=== PATIENT | female | born 1945 | race Caucasian/White ===

== ENCOUNTER 2017-08-20 20:45 | Observation (INO) | payer MEDICARE, BC ==
--- NOTE | 2017-08-20 21:05 | ERPHSYRPT ---
- History of Present Illness Time Seen by Provider: 08/20/17 20:58 Source: patient, EMS Exam Limitations: no limitations Patient Subjective Stated Complaint: tonight began having diarrhea and vomiting around 1830 Triage Nursing Assessment: abd pain, pt states "intestines binding up" began quick onset tonight with diarrhea episodes every 15min Physician History: The patient is a 72-year-old female brought in by ambulance from assisted living halfway where she had a sudden onset of nausea vomiting and diarrhea about 2-1/2 hours ago. During the diarrhea was watery. No vomiting and diarrhea was occurring every 15 minutes. She feels weak and tired right now. She does not have abdominal pain. She was given Zofran 4 mg any ambulance before arrival. 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 Her past medical history is also significant for high blood pressure, high cholesterol, depression, and coronary artery disease. Timing/Duration: hour(s) (2 1/2), sudden Severity: severe Modifying Factors: Improves With: nothing Associated Symptoms: nausea, vomiting, other (diarrhea) Allergies/Adverse Reactions: codeine Adverse Reaction (Verified 08/18/16 23:41) metoclopramide HCl [From Reglan] Adverse Reaction (Verified 08/18/16 23:41) morphine Adverse Reaction (Verified 08/18/16 23:41) SEDATED Sulfa (Sulfonamide Antibiotics) Adverse Reaction (Verified 08/18/16 23:41) Home Medications: Amlodipine Besylate 5 mg [Norvasc 5 mg] 5 mg PO DAILY 08/18/16 [History] Aspirin [Aspirin EC] 81 mg PO BID 08/18/16 [History] Atenolol 50 mg [Tenormin 50 mg] 50 mg PO DAILY 08/18/16 [History] Atorvastatin Calcium 40 mg PO HS 08/18/16 [History] Cholestyramine Light 4 gm [QUESTRAN Light 4 GM Packet] 4 gm PO DAILY 08/18 [History] Clonazepam [Klonopin] 1 mg PO BID 08/18/16 [History] Clotrimazole [Lotrimin AF] 24 gm TP TID 08/18/16 [History] Diclofenac Sodium 50 mg [Voltaren 50 mg] 50 mg PO BID 08/18/16 [History] Duloxetine HCl [Cymbalta] 60 mg PO DAILY 08/18/16 [History] Gabapentin [Neurontin] 300 mg PO BID 08/18/16 [History] Hydrocodone Bit/Acetaminophen [[place] 10-325 Tablet] 1 each PO DAILY 08/18/16 [ History] Isosorbide Mononitrate 30 mg [Imdur 30 MG] 30 mg PO DAILY 08/18/16 [History ] L.acd/B.bif/L.lala/L.rh/Fos/Man [Preorbotic Capsule] 1 each PO DAILY 08/18/16 [ History] Leflunomide 20 mg PO DAILY 08/18/16 [History] Loperamide HCl [Imodium A-D] 2 mg PO BID 08/18/16 [History] Nitroglycerin [Nitrostat] 0.4 mg SL Q5MIN PRN MR X 3 PRN 08/18/16 [History] Nystatin 5 ml PO QID 08/18/16 [History] Hx Tetanus, Diphtheria Vaccination/Date Given: Yes (UNKNOWN) Hx Influenza Vaccination/Date Given: Yes Hx Pneumococcal Vaccination/Date Given: Yes (2007) Immunizations Up to Date: Yes - Review of Systems Constitutional: Weakness, No Fever, No Chills Eyes: No Symptoms Ears, Nose, & Throat: No Symptoms Respiratory: No Cough, No Dyspnea Cardiac: No Chest Pain, No Edema, No Syncope Abdominal/Gastrointestinal: Nausea, Vomiting, Diarrhea Genitourinary Symptoms: No Dysuria Musculoskeletal: No Back Pain, No Neck Pain Skin: No Rash Neurological: No Dizziness, No Focal Weakness, No Sensory Changes Psychological: No Symptoms Endocrine: No Symptoms Hematologic/Lymphatic: No Symptoms Immunological/Allergic: No Symptoms All Other Systems: Reviewed and Negative - Past Medical History Pertinent Past Medical History: Yes Neurological History: Peripheral Neuropathy ENT History: Cataracts Cardiac History: Deep Vein Thrombosis, Hypertension Respiratory History: No Pertinent History Endocrine Medical History: Diabetes Type II Musculoskeletal History: Arthritis, Fractures, Osteoporosis GI Medical History: GERD, Other History: Other Psycho-Social History: Anxiety, Depression Female Reproductive Disorders: Fibroids, Other Other Medical History: BECHETS. Hx IVC filter for DVT. CeLIAC DISEASE. L KNEE SURGERY. Pessiary - Past Surgical History Past Surgical History: Yes Neuro Surgical History: No Pertinent History Cardiac: No Pertinent History Respiratory: No Pertinent History Gastrointestinal: Appendectomy, Cholecystectomy, Colon Resection, Hernia Repair Genitourinary: No Pertinent History Musculoskeletal: No Pertinent History Female Surgical History: Hysterectomy Other Surgical History: GASTRIC BYPASS - Social History Smoking Status: Never smoker Exposure to second hand smoke: No Drug Use: none Patient Lives Alone: No - Female History Hx Now: No - Nursing Vital Signs Nursing Vital Signs: Initial Vital Signs Temperature 97.3 F 08/20/17 20:49 Pulse Rate 88 08/20/17 20:49 Respiratory Rate 18 08/20/17 20:49 Blood Pressure 140/90 08/20/17 20:49 O2 Sat by Pulse Oximetry 90 L 08/20/17 20:49 Pain Scale Pain Intensity 4 - Physical Exam General Appearance: mild distress Eye Exam: PERRL/EOMI, eyes nml inspection Ears, Nose, Throat Exam: dry mucous membranes Neck Exam: normal inspection, non-tender, supple, full range of motion Respiratory Exam: normal breath sounds, lungs clear, No respiratory distress Cardiovascular Exam: regular rate/rhythm, normal heart sounds, normal peripheral pulses Gastrointestinal/Abdomen Exam: soft, normal bowel sounds, No tenderness, No mass Pelvic Exam: not done Rectal Exam: not done Back Exam: normal inspection, normal range of motion, No CVA tenderness, No vertebral tenderness Extremity Exam: normal inspection, normal range of motion, pelvis stable Neurologic Exam: alert, oriented x 3, cooperative, normal mood/affect, nml cerebellar function, nml station & gait, sensation nml, No motor deficits Skin Exam: warm, pale Lymphatic Exam: No adenopathy SpO2 Interpretation: normal SpO2: 90 Oxygen Delivery: Room Air - Radiology Exams Abdomen X-ray Interpretation: Interpreted by me, Negative (neg chest and nonobstructive bowel gas pattern.) Ordered Tests: Active Orders 24 hr Category Date Time Status Cath for Specimen-Straight STAT Care 08/20/17 22:23 Active IV Insertion STAT Care 08/20/17 21:07 Active OBSTR/ACUTE ABDOMEN SERIES Stat Exams 08/20/17 21:08 Taken BLOOD CULTURE Stat Lab 08/20/17 21:20 Ordered CBC W DIFF Stat Lab 08/20/17 21:21 Completed CMP Stat Lab 08/20/17 21:21 Completed CULTURE,URINE Stat Lab 08/20/17 22:40 Received Lactic Acid Stat Lab 08/20/17 21:20 Results UA W/RFX UR CULTURE Stat Lab 08/20/17 22:23 Ordered Transfer Order Routine Transfer 08/20/17 Ordered Medication Summary Generic Name Dose Route Start Last Admin Trade Name Frelaura PRN Reason Stop Dose Admin Ceftriaxone Sodium/Dextrose 1 g in 50 mls @ 100 mls/hr 08/20/17 22:37 22:44 Rocephin 1 Gm-D5w 50 Ml Bag IV 08/20/17 23:06 100 mls/hr STAT STA Administration Sodium Chloride 1,000 mls @ 999 mls/hr 08/20/17 22:39 08/20/17 22:43 Sodium Chloride 0.9% 1000 Ml IV 08/20/17 23:39 999 mls/hr .Q1H1M STA Administration Discontinued Medications Generic Name Dose Route Start Last Admin Trade Name Gloria PRN Reason Stop Dose Admin Diphenoxylate HCl/Atropine 1 tablet 08/20/17 21:07 08/20/17 21:20 Lomotil PO 08/20/17 21:08 1 tablet STAT ONE Administration Diphenoxylate HCl/Atropine Confirm 08/20/17 21:14 Lomotil Administered 08/20/17 21:15 Dose 1 tablet .ROUTE .STK-MED ONE Sodium Chloride 1,000 mls @ 999 mls/hr 08/20/17 21:07 08/20/17 21:18 Sodium Chloride 0.9% 1000 Ml IV 08/20/17 22:07 999 mls/hr .Q1H1M STA Administration Sodium Chloride Confirm 08/20/17 21:15 Sodium Chloride 0.9% 1000 Ml Administered 08/20/17 21:16 Dose 1,000 mls @ ud .ROUTE .STK-MED ONE Sodium Chloride Confirm 08/20/17 22:40 Sodium Chloride 0.9% 1000 Ml Administered 08/20/17 22:41 Dose 1,000 mls @ ud .ROUTE .STK-MED ONE Ceftriaxone Sodium/Dextrose Confirm 08/20/17 22:40 Rocephin 1 Gm-D5w 50 Ml Bag Administered 08/20/17 22:41 Dose 1 g in 50 mls @ ud IV .STK-MED ONE Promethazine HCl 12.5 mg 08/20/17 21:07 08/20/17 21:21 Phenergan 25 Mg Inj IV 08/20/17 21:08 12.5 mg STAT ONE Administration Promethazine HCl Confirm 08/20/17 21:14 Phenergan 25 Mg Inj Administered 08/20/17 21:15 Dose 25 mg .ROUTE .K-MED ONE Lab/Rad Data: Laboratory Result Diagrams 08/20/17 21:21 08/20/17 21:21 Laboratory Results 08/20/17 08/20/17 08/20/17 Range/Units 21:21 21:21 21:20 WBC 16.6 H (4.0-10.5) K/mm3 RBC 5.41 H (4.1-5.4) M/mm3 Hgb 14.0 (12.0-16.0) gm/dl Hct 45.7 (35-47) % MCV 84.5 (78-100) fl MCH 25.8 L (26-32) pg MCHC 30.6 L (32-36) g/dl RDW 17.8 H (11.5-14.0) % Plt Count 272 (150-450) K/mm3 MPV 9.4 (6-9.5) fl Gran % 80.3 H (36.0-66.0) % Lymphocytes % 10.8 L (24.0-44.0) % Monocytes % 6.9 (0.0-12.0) % Eosinophils % 1.9 (0.00-5.0) % Basophils % 0.1 (0.0-0.4) % Basophils # 0.02 (0-0.4) Sodium 136 (136-145) mEq/L Potassium 3.8 (3.5-5.1) mEq/L Chloride 98 (98-107) mEq/L Carbon Dioxide 20.1 L (21-32) mEq/L Anion Gap 21.3 H (5-15) MEQ/L BUN 29 H (9-20) mg/dL Creatinine 1.36 H (0.55-1.30) mg/dl Estimated GFR 41 ML/MIN Glucose 190 H (70-110) MG/DL Lactic Acid 4.1 H (0.4-2.0) Calcium 9.5 (8.5-10.1) mg/dL Total Bilirubin 0.30 (0.2-1.0) mg/dL AST 18 (15-37) U/L ALT 21 (12-78) U/L Alkaline Phosphatase 102 (46-116) U/L Serum Total Protein 9.4 H (6.4-8.2) gm/dL Albumin 4.8 (3.4-5.0) g/dL - Progress Progress: improved Discussed with : Manuel Will see patient in: hospital (observation) Counseled pt/family regarding: lab results, diagnosis, rad results - Departure Time of Disposition: 22:51 Departure Disposition: Observation (per Dr Mary Ellen Soria) Clinical Impression: Gastroenteritis, Dehydration Condition: Stable Critical Care Time: No Referrals: PEPE LEONARD [Primary Care Provider] -
[2017-08-20] MEDS ORDERED: Sodium Chloride 0.9% 1000 ML 1,000 ML IV STA ×2 (21:07→22:39)
[2017-08-20] MEDS ORDERED: Lomotil PO ONE (21:07)
[2017-08-20] MEDS ORDERED: Phenergan 25 MG INJ IV ONE (21:07)
[2017-08-20] MEDS ORDERED: Lomotil ONE (21:14)
[2017-08-20] MEDS ORDERED: Phenergan 25 MG INJ ONE (21:14)
[2017-08-20] MEDS ORDERED: Sodium Chloride 0.9% 1000 ML 1,000 ML ONE ×2 (21:15→22:40)
[2017-08-20 21:23] LABS: BASOPHIL % 0.1 % (0.0-0.4); Eosinophil % 1.9 % (0.00-5.0); Granulocytes % 80.3 % (36.0-66.0); Lymphocytes % 10.8 % (24.0-44.0); Mean Cell Volume 84.5 fl (78-100); Mean Platelet Volume 9.4 fl (6-9.5); Monocytes % 6.9 % (0.0-12.0); Platelet Count 272 K/mm3 (150-450); Red Blood Count 5.41 M/mm3 (4.1-5.4); Red Cell Distribution Width 17.8 % (11.5-14.0); White Blood Count 16.6 K/mm3 (4.0-10.5)
[2017-08-20 21:32] LABS: Lactic Acid 4.1 (0.4-2.0)
[2017-08-20 21:35] LABS: Mean Corpuscular Hemoglobin 25.8 pg (26-32)
[2017-08-20 21:57] LABS: ALBUMIN 4.8 g/dL (3.4-5.0); ANION GAP 21.3 MEQ/L (5-15); BILIRUBIN,TOTAL 0.3 mg/dL (0.2-1.0); Carbon Dioxide 20.1 mEq/L (21-32); Potassium 3.8 mEq/L (3.5-5.1); Total Protein 9.4 gm/dL (6.4-8.2)
[2017-08-20] MEDS ORDERED: ROCEPHIN 1 Gm-D5w 50 ml Bag** 1 G/50 ML IVPB IV STA (22:37)
[2017-08-20] MEDS ORDERED: ROCEPHIN 1 Gm-D5w 50 ml Bag** 1 G/50 ML IVPB IV ONE (22:40)
[2017-08-20 23:26] LABS: Lactic Acid 3.5 (0.4-2.0)
[2017-08-20] MEDS ORDERED: Zofran 4 MG/2 ML VIAL IV PRN (23:29)
[2017-08-20] MEDS ORDERED: TYLENOL 325 MG PO PRN (23:29)
[2017-08-20] MEDS ORDERED: Sodium Chloride 0.9% 1000 ML 1,000 ML IV SCH (23:29)
[2017-08-21 05:35] LABS: Bacteria MODERATE /HPF (NEGATIVE); Bilirubin NEGATIVE (NEGATIVE); Blood 250 Ery/ul (0-5); COMPLETE URINE MICROSCOPIC? YES; Collection Type VOID; Epithelial Cells MODERATE /HPF (FEW); Glucose NEGATIVE (NEGATIVE); Leukocyte Esterase 2+ (NEGATIVE); WBC 25-50 /HPF (0-5)
[2017-08-21 05:35] LABS: Lactic Acid 1.9 (0.4-2.0)
[2017-08-21 05:38] LABS: BASOPHIL % 0.1 % (0.0-0.4); Granulocytes % 68.3 % (36.0-66.0); Lymphocytes % 22.8 % (24.0-44.0); Mean Cell Volume 84.8 fl (78-100); Mean Platelet Volume 9.1 fl (6-9.5); Monocytes % 6.8 % (0.0-12.0); Platelet Count 207 K/mm3 (150-450); Red Blood Count 4.07 M/mm3 (4.1-5.4); Red Cell Distribution Width 16.9 % (11.5-14.0)
[2017-08-21 05:39] LABS: Mean Corpuscular Hemoglobin 25.7 pg (26-32)
[2017-08-21 06:01] LABS: ANION GAP 14.8 MEQ/L (5-15); BLOOD UREA NITROGEN 21 mg/dL (9-20); CHLORIDE 106 mEq/L (98-107); Carbon Dioxide 22.2 mEq/L (21-32); Glucose 103 MG/DL (70-110); Potassium 3.9 mEq/L (3.5-5.1); SODIUM 139 mEq/L (136-145)
--- NOTE | 2017-08-21 08:21 | PCM.HP ---
History of Present Illness - Chief Complaint Chief Complaint: Nausea/vomiting/diarrhea; dehydration Date: 08/21/17 History of Present Illness: is a 72 year old female. she had sudden onset severe nausea vomiting diarrhea and weakness no bloody emesis or diarrhea some cramping in the abdomen relieved with the diarrhea. She does not recall anything that would have caused this had grilled chicken from [employer] at lunch and had home cooked meal that daughter ate the same thing at dinner. She has frequent UTI's but not the typical prodrome symptoms this time. She has not traveled. SHe felt much better after hydration and zofran. She tolerated clear liquid diet no vomiting or diarrhea since arrival to the floor. - Review of Systems Constitutional: Fatigue, No Fever, No Chills Eyes: No Symptoms Ears, Nose, & Throat: No Symptoms Respiratory: No Cough, No Short Of Breath Cardiac: No Chest Pain, No Edema, No Syncope Abdominal/Gastrointestinal: Nausea, Vomiting, Diarrhea, No Abdominal Pain, No Hematemesis, No Hematochezia, No Melena Genitourinary Symptoms: Frequency, No Dysuria Musculoskeletal: No Back Pain, No Neck Pain Skin: No Rash Neurological: No Dizziness, No Focal Weakness, No Sensory Changes Psychological: No Symptoms Endocrine: No Symptoms Hematologic/Lymphatic: No Symptoms Immunological/Allergic: No Symptoms Medications & Allergies Home Medications: Home Medication List Amlodipine Besylate 5 mg [Norvasc 5 mg] 5 mg PO DAILY 08/18/16 [History Confirmed 08/21/17] Aspirin [Aspirin EC] 81 mg PO DAILY 08/18/16 [History Confirmed 08/21/17] Atenolol 50 mg [Tenormin 50 mg] 50 mg PO DAILY 08/18/16 [History Confirmed 08/21/17] Atorvastatin Calcium 40 mg PO HS 08/18/16 [History Confirmed 08/21/17] Clonazepam [Klonopin] 0.5 mg PO BID 08/18/16 [History Confirmed 08/21/17] Duloxetine HCl [Cymbalta] 90 mg PO DAILY 08/18/16 [History Confirmed 08/21/17] Gabapentin [Neurontin] 600 mg PO BID 08/18/16 [History Confirmed 08/21/17] Hydrocodone Bit/Acetaminophen [[place] 10-325 Tablet] 1 each PO DAILY 08/18/16 [ History Confirmed 08/21/17] Acetaminophen 325 mg [Tylenol 325 mg] 650 mg PO Q6H PRN PRN 08/21/17 [ History Confirmed 08/21/17] Cephalexin Mh 500 mg [Keflex 500 mg] 500 mg PO BID #12 capsule 08/21/17 [Rx] Lisinopril 5 mg [Zestril 5 MG] 5 mg PO DAILY 08/21/17 [History Confirmed 08/21/17] Loperamide HCl [Loperamide] 2 mg PO Q12H PRN PRN 08/21/17 [History Confirmed 08/26] Metformin HCl 500 mg [Glucophage 500 MG] 500 mg PO BID 08/21/17 [History Confirmed 08/21/17] Omeprazole Magnesium [Prilosec Otc] 20 mg PO DAILY 08/21/17 [History Confirmed 08/21/17] Prednisolone Acetate OPHTH [Pred-Forte 1% Ophthalmic] 1 each HS 08/21/17 [ History Confirmed 08/21/17] Allergies/Adverse Reactions: Allergies Allergy/AdvReac Type Severity Reaction Status Date / Time codeine AdvReac Verified 08/18/16 23:41 metoclopramide HCl AdvReac Verified 08/18/16 23:41 [From Reglan] morphine AdvReac Verified 08/18/16 23:41 Sulfa (Sulfonamide AdvReac Verified 08/18/16 23:41 Antibiotics) - Past Medical History Past Medical History: Yes Neurological History: Peripheral Neuropathy, TIA ENT History: Cataracts Cardiac History: Deep Vein Thrombosis, Hypertension Respiratory History: No Pertinent History Endocrine Medical History: Diabetes Type II Musculoskelatal History: Arthritis, Fractures, Osteoporosis GI Medical History: GERD, Other History: Other Pyscho-Social History: Anxiety, Depression Reproductive Disorders: Other Comment: BECHETS. Hx IVC filter for DVT. L KNEE SURGERY. Pessiary. kidney stones, frequent UTI,. hx colon resection - Female History Are you now?: No - Past Surgical History Past Surgical History: Yes Neuro Surgical History: No Pertinent History Cardiac History: No Pertinent History Respiratory Surgery: No Pertinent History GI Surgical History: Appendectomy, Cholecystectomy, Colon Resection, Hernia Repair Genitourinary Surgical Hx: No Pertinent History Musculskeletal Surgical Hx: No Pertinent History Female Surgical History: Hysterectomy Other Surgical History: GASTRIC BYPASS - Social History Smoking Status: Never smoker Exposure to second hand smoke: Yes Alcohol: None Drug Use: none - Physical Exam Vital Signs: Vital Signs - 24 hr Temp Pulse Resp BP Pulse Ox 08/21/17 06:47 98.2 F 95 H 16 140/79 93 L 08/21/17 04:00 98.4 F 96 H 18 123/65 92 L 08/21/17 00:01 98.6 F 103 H 20 155/88 91 L 08/20/17 23:00 67 20 88 L 08/20/17 22:59 98 H 20 167/82 94 L 08/20/17 22:51 90 L 08/20/17 22:14 100 H 20 159/94 95 08/20/17 20:49 97.3 F 88 18 140/90 90 L Oxygen-Last 24 hours O2 Percentage 2 Liters = 28% O2 Percentage 2 Liters = 28% O2 Percentage 2 Liters = 28% General Appearance: no apparent distress, alert Neurologic Exam: alert, oriented x 3, cooperative, normal mood/affect, nml cerebellar function, nml station & gait, sensation nml, No motor deficits Eye Exam: PERRL/EOMI, eyes nml inspection, other (left subcunjunctival hemorrhage) Ears, Nose, Throat Exam: normal ENT inspection, pharynx normal, moist mucous membranes Neck Exam: normal inspection, non-tender, supple, full range of motion Respiratory Exam: normal breath sounds, lungs clear, No respiratory distress Cardiovascular Exam: regular rate/rhythm, normal heart sounds, normal peripheral pulses Gastrointestinal/Abdomen Exam: soft, normal bowel sounds, No tenderness, No mass Back Exam: normal inspection, normal range of motion, No CVA tenderness, No vertebral tenderness Extremity Exam: normal inspection, normal range of motion, pelvis stable Skin Exam: normal color, warm, dry, No rash Lymphatic Exam: No adenopathy Results - Labs Lab/Micro Results: Lab Results-Last 24 Hours 08/21/17 08/21/17 08/21/17 Range/Units 05:20 05:20 05:20 WBC 8.0 (4.0-10.5) K/mm3 RBC 4.07 L (4.1-5.4) M/mm3 Hgb 10.5 L (12.0-16.0) gm/dl Hct 34.5 L (35-47) % MCV 84.8 (78-100) fl MCH 25.7 L (26-32) pg MCHC 30.4 L (32-36) g/dl RDW 16.9 H (11.5-14.0) % Plt Count 207 (150-450) K/mm3 MPV 9.1 (6-9.5) fl Gran % 68.3 H (36.0-66.0) % Lymphocytes % 22.8 L (24.0-44.0) % Monocytes % 6.8 (0.0-12.0) % Eosinophils % 2.0 (0.00-5.0) % Basophils % 0.1 (0.0-0.4) % Basophils # 0.01 (0-0.4) Sodium 139 (136-145) mEq/L Potassium 3.9 (3.5-5.1) mEq/L Chloride 106 (98-107) mEq/L Carbon Dioxide 22.2 (21-32) mEq/L Anion Gap 14.8 (5-15) MEQ/L BUN 21 H (9-20) mg/dL Creatinine 0.87 (0.55-1.30) mg/dl Estimated GFR > 60 ML/MIN Glucose 103 (70-110) MG/DL Lactic Acid 1.9 (0.4-2.0) Calcium 8.1 L (8.5-10.1) mg/dL - Other Procedures and Tests Respiratory Therapy 08/20/17 23:00 Oxygen NASAL CANNULA 2 lpm Assessment/Plan (1) Gastroenteritis Current Visit: Yes Status: Acute Assessment & Plan: suspected with lactic acidosis and ina from the dehydration resolved with rehydration symptoms resolved the UA suspicious for UTI given her recurrent hx will empirically cover until culture back but it appears the majority of the symptoms would be atypical for a UTI. she had her metformin held but otherwise her home meds were continued. she is observed today ivf d/c diet advanced if tolerates well ok to go home tonight Code(s): K52.9 - NONINFECTIVE GASTROENTERITIS AND COLITIS, UNSPECIFIED (2) UTI (urinary tract infection) Current Visit: Yes Status: Acute Code(s): N39.0 - URINARY TRACT INFECTION, SITE NOT SPECIFIED (3) Dehydration Current Visit: Yes Status: Acute Code(s): E86.0 - DEHYDRATION (4) Acute kidney injury Current Visit: Yes Status: Acute Code(s): N17.9 - ACUTE KIDNEY FAILURE, UNSPECIFIED
[2017-08-21] MEDS ORDERED: TYLENOL 325 MG PO PRN (08:34)
[2017-08-21] MEDS ORDERED: Norco 10/325 MG Tablet PO PRN (08:34)
[2017-08-21] MEDS ORDERED: Sodium Chloride 0.9% 10 ML FLUSH Syringe IV PRN (08:53)
--- NOTE | 2017-08-21 09:00 | XRAY ---
Indication: Nausea, vomiting, and diarrhea. Comparison: Portable chest August 18, 2016. 2 views of the abdomen demonstrates nonspecific nonobstructed bowel gas pattern. Cholecystectomy clips, IVC filter, and ventral hernia mesh graft. Remaining solid organs unremarkable. Osseous structures demonstrates osteopenia, multilevel degenerative spondylosis, remote T12 compression deformity, and double curvature scoliosis. Single PA chest hyperinflated and clear with a few incidental calcified granulomas. Heart is not enlarged. Bony thorax intact with osteopenia and degenerative changes. Impression: 1. Nonacute nonobstructed abdomen with chronic findings. 2. Nonacute 1V chest with chronic findings.
[2017-08-21] MEDS ORDERED: Klonopin 0.5 MG PO SCH ×2 (10:00→22:00)
[2017-08-21] MEDS ORDERED: CLONAZEPAM 0.5 MG PO SCH (10:00)
[2017-08-21] MEDS ORDERED: ECOTRIN 81 MG PO SCH (10:00)
[2017-08-21] MEDS ORDERED: Cymbalta 30 MG Capsule PO SCH (10:00)
[2017-08-21] MEDS ORDERED: Protonix 40MG Tablet PO SCH (10:00)
[2017-08-21] MEDS ORDERED: Pepcid 20 MG VIAL IV SCH (10:00)
[2017-08-21] MEDS ORDERED: NEURONTIN 300 MG PO SCH (10:00)
[2017-08-21] MEDS ORDERED: Zestril 5 MG PO SCH (10:00)
[2017-08-21] MEDS ORDERED: NORVASC 5 MG PO SCH (10:00)
[2017-08-21] MEDS ORDERED: TENORMIN 50 MG PO SCH (10:00)
[2017-08-21] MEDS ORDERED: DULOXETINE HCL 90 MG PO SCH (10:00)
[2017-08-21] MEDS ORDERED: Sodium Chloride 0.9% 10 ML FLUSH Syringe IV SCH (14:00)
[2017-08-21 15:29] VITALS: O2SAT 95
[2017-08-21 16:13] VITALS: BP 128/69; PULSE 88
--- NOTE | 2017-08-21 17:12 | PCM.DCORD ---
- Discharge Discharge Date: 08/21/17 Disposition: Home, Self-Care Condition: Stable Prescriptions: New Cephalexin Mh 500 mg [Keflex 500 mg] 500 mg PO BID #12 capsule Continue Atorvastatin Calcium 40 mg PO HS Amlodipine Besylate 5 mg [Norvasc 5 mg] 5 mg PO DAILY Aspirin [Aspirin EC] 81 mg PO DAILY Duloxetine HCl [Cymbalta] 90 mg PO DAILY Atenolol 50 mg [Tenormin 50 mg] 50 mg PO DAILY Hydrocodone Bit/Acetaminophen [[place] 10-325 Tablet] 1 each PO DAILY Gabapentin [Neurontin] 600 mg PO BID Clonazepam [Klonopin] 0.5 mg PO BID Metformin HCl 500 mg [Glucophage 500 MG] 500 mg PO BID Lisinopril 5 mg [Zestril 5 MG] 5 mg PO DAILY Prednisolone Acetate OPHTH [Pred-Forte 1% Ophthalmic] 1 each HS Acetaminophen 325 mg [Tylenol 325 mg] 650 mg PO Q6H PRN PRN PRN Reason: Pain And/Or Fever Omeprazole Magnesium [Prilosec Otc] 20 mg PO DAILY Loperamide HCl [Loperamide] 2 mg PO Q12H PRN PRN PRN Reason: Loose Stools Follow up with: PEPE LEONARD [Primary Care Provider] -
[2017-08-21] MEDS ORDERED: PRED-FORTE 1% OPHTHALMIC OP SCH (22:00)
[2017-08-21] MEDS ORDERED: LIPITOR 40MG PO SCH (22:00)
[2017-08-21] MEDS ORDERED: ROCEPHIN 1 Gm-D5w 50 ml Bag** 1 G/50 ML IVPB IV SCH (22:00)
== END 2017-08-21 18:48 | disposition home or self-care (01) ==
LOC: ED 20:45 → MED SURG 23:28
PROVIDERS: ADMIT Family Medicine; ATTEND Family Medicine
DX: K52.9 Noninfective gastroenteritis and colitis, unspecified (principal); N39.0 Urinary tract infection, site not specified; E86.0 Dehydration; N17.9 Acute kidney failure, unspecified; E11.9 Type 2 diabetes mellitus without complications; Z79.4 Long term (current) use of insulin; Z79.899 Other long term (current) drug therapy; I10 Essential (primary) hypertension; Z86.718 Personal history of other venous thrombosis and embolism; M19.90 Unspecified osteoarthritis, unspecified site; K21.9 Gastro-esophageal reflux disease without esophagitis; F41.8 Other specified anxiety disorders; Z98.84 Bariatric surgery status
CPT/HCPCS: 82962; 93268; 96374; 96365; 99285; 36000; 96360; 96361; 87040; 81000; 36415 ×2; 85025 ×2; 80048; 80053; 87086; 87631; 74022; 94760; 94761; 83605 ×2; P9612; 87077; 87186; G0378; J0696; J2550; A9270-GY

== ENCOUNTER 2019-07-09 18:20 | Emergency (ER) | payer MEDICARE, BC ==
[2019-07-09] MEDS ORDERED: PROVENTIL 2.5 MG/3 ML NEB IH ONE ×2 (18:58→19:06)
[2019-07-09 19:28] LABS: Absolute Neutrophil Ct (ANC) 5.14 (1.4-6.9); BASOPHIL % 0.5 % (0.0-0.4); Basophil (Absolute #) 0.04 (0-0.4); Eosinophil % 4.6 % (0.00-5.0); Eosinophil (Absolute #) 0.36 (0-0.5); Hematocrit 36.7 % (35-47); Hemoglobin 11.5 gm/dl (12.0-16.0); Lymphocyte (Absolute #) 1.62 (1.0-4.6); Lymphocytes % 20.8 % (24.0-44.0); Mean Cell Volume 81.4 fl (78-100); Mean Corpuscular Hgb Concent. 31.3 g/dl (32-36); Mean Platelet Volume 9.5 fl (6-9.5); Monocyte (Absolute #) 0.64 (0.0-1.3); Monocytes % 8.2 % (0.0-12.0); Neutrophil % 65.9 % (36.0-66.0); Platelet Count 230 K/mm3 (150-450); Red Blood Count 4.51 M/mm3 (4.1-5.4); Red Cell Distribution Width 16.4 % (11.5-14.0); White Blood Count 7.8 K/mm3 (4.0-10.5)
[2019-07-09 19:29] LABS: Mean Corpuscular Hemoglobin 25.4 pg (26-32)
--- NOTE | 2019-07-09 19:37 | ERPHSYRPT ---
- History of Present Illness Time Seen by Provider: 07/09/19 18:32 Source: patient Exam Limitations: no limitations Patient Subjective Stated Complaint: Pt states "I have been running hot and cold on and off for the past three days or so and I have this cough, I think I have bronchitis." Triage Nursing Assessment: Pt presented alert and oriented X 3, skin pwd Pt ambulates with an upright steady gait, able to speak in clear full sentences. Pt in no apparent respiratory distress. Physician History: 74 years old female is in the ER chief complaint of worsening cough for the last 3 days productive of clear to yellow sputum, moderate amount, no hemoptysis associated with subjective feeling of fever and chills. Denies any shortness of breath. Patient is concerned about getting bronchitis/pneumonia. She denies any chest pain or palpitations. Denies any sick contact. Patient about initially symptoms started as an upper respiratory and rapidly progressed to cough and chest cold.bnormal Timing/Duration: day(s) (3) Cough Quality/Degree: moderate, productive cough, sputum Possible Cause: unknown cause Modifying Factors: Improves With: coughing Associated Symptoms: fever, chills, cough International travel in last 2 weeks: No Allergies/Adverse Reactions: codeine Adverse Reaction (Verified 08/18/16 23:41) metoclopramide HCl [From Reglan] Adverse Reaction (Verified 08/18/16 23:41) morphine Adverse Reaction (Verified 08/18/16 23:41) SEDATED Sulfa (Sulfonamide Antibiotics) Adverse Reaction (Verified 08/18/16 23:41) Home Medications: Amlodipine Besylate 5 mg [Norvasc 5 mg] 5 mg PO DAILY 08/18/16 [History] Aspirin [Aspirin EC] 81 mg PO DAILY 08/18/16 [History] Atenolol 50 mg [Tenormin 50 mg] 50 mg PO DAILY 08/18/16 [History] Atorvastatin Calcium 40 mg PO HS 08/18/16 [History] Duloxetine HCl [Cymbalta] 90 mg PO DAILY 08/18/16 [History] Gabapentin [Neurontin] 600 mg PO BID 08/18/16 [History] Lisinopril 5 mg [Zestril 5 MG] 5 mg PO DAILY 08/21/17 [History] Metformin HCl 500 mg [Glucophage 500 MG] 500 mg PO BID 08/21/17 [History] Leflunomide [Arava] 10 mg PO DAILY 07/09/19 [History] Hx Tetanus, Diphtheria Vaccination/Date Given: Yes Hx Influenza Vaccination/Date Given: No Hx Pneumococcal Vaccination/Date Given: Yes Immunizations Up to Date: Yes - Past Medical History Pertinent Past Medical History: Yes Neurological History: Peripheral Neuropathy, TIA ENT History: Cataracts Cardiac History: Deep Vein Thrombosis, Hypertension Respiratory History: No Pertinent History Endocrine Medical History: Diabetes Type II Musculoskeletal History: Arthritis, Fractures, Osteoporosis GI Medical History: GERD, Other History: Other Psycho-Social History: Anxiety, Depression Female Reproductive Disorders: Other Other Medical History: BECHETS. Hx IVC filter for DVT. L KNEE SURGERY. Pessiary. kidney stones, frequent UTI,. hx colon resection - Past Surgical History Past Surgical History: Yes Neuro Surgical History: No Pertinent History Cardiac: No Pertinent History Respiratory: No Pertinent History Gastrointestinal: Appendectomy, Cholecystectomy, Colon Resection, Hernia Repair Genitourinary: No Pertinent History Musculoskeletal: No Pertinent History Female Surgical History: Hysterectomy Other Surgical History: GASTRIC BYPASS - Social History Smoking Status: Never smoker Exposure to second hand smoke: No Drug Use: none Patient Lives Alone: Yes - Female History Hx Now: No - Nursing Vital Signs Nursing Vital Signs: Initial Vital Signs Temperature 97.9 F 07/09/19 18:30 Pulse Rate 104 H 07/09/19 18:30 Respiratory Rate 20 07/09/19 18:30 Blood Pressure 181/111 07/09/19 18:30 O2 Sat by Pulse Oximetry 97 07/09/19 18:30 Pain Scale Pain Intensity 0 - Physical Exam General Appearance: no apparent distress Eye Exam: eyes nml inspection Ears, Nose, Throat Exam: normal ENT inspection, TMs normal, pharyngeal erythema Neck Exam: normal inspection, non-tender, supple, full range of motion Respiratory Exam: normal breath sounds, lungs clear, No chest tenderness, No respiratory distress, No diminished breath sounds, No wheezing Cardiovascular Exam: regular rate/rhythm, normal heart sounds Gastrointestinal/Abdomen Exam: soft, normal bowel sounds, No tenderness Back Exam: normal inspection Extremity Exam: normal inspection, normal range of motion Neurologic Exam: alert, oriented x 3, cooperative Skin Exam: normal color SpO2 Interpretation: normal SpO2: 95 O2 Delivery: Room Air - Course Nursing assessment & vital signs reviewed: Yes Ordered Tests: Active Orders 24 hr Category Date Time Status CHEST 2 VIEWS (PA AND LAT) Stat Exams 07/09/19 18:59 Ordered CBC W DIFF Stat Lab 07/09/19 19:20 Completed CMP Stat Lab 07/09/19 19:20 Completed Lactic Acid Stat Lab 07/09/19 19:20 Results Respiratory Therapy Assessment DAILY RT 07/09/19 19:11 Completed Medication Summary Generic Name Dose Route Start Last Admin Trade Name Freq PRN Reason Stop Dose Admin Doxycycline Hyclate 100 mg 07/09/19 19:52 Vibramycin 100 Mg PO 07/09/19 19:53 STAT ONE Discontinued Medications Generic Name Dose Route Start Last Admin Trade Name Freq PRN Reason Stop Dose Admin Albuterol Sulfate 2.5 mg 07/09/19 18:58 07/09/19 19:08 Proventil 2.5 Mg/3 Ml Neb IH 07/09/19 18:59 2.5 mg STAT ONE Administration Albuterol Sulfate Confirm 07/09/19 19:06 Proventil 2.5 Mg/3 Ml Neb Administered 07/09/19 19:07 Dose 2.5 mg IH .STK-MED ONE Lab/Rad Data: Laboratory Result Diagrams 07/09/19 19:20 07/09/19 19:20 Laboratory Results 07/09/19 07/09/19 07/09/19 Range/Units 19:20 19:20 19:20 WBC 7.8 (4.0-10.5) K/mm3 RBC 4.51 (4.1-5.4) M/mm3 Hgb 11.5 L (12.0-16.0) gm/dl Hct 36.7 (35-47) % MCV 81.4 (78-100) fl MCH 25.4 L (26-32) pg MCHC 31.3 L (32-36) g/dl RDW 16.4 H (11.5-14.0) % Plt Count 230 (150-450) K/mm3 MPV 9.5 (6-9.5) fl Gran % 65.9 (36.0-66.0) % Eos # (Auto) 0.36 (0-0.5) Absolute Lymphs (auto) 1.62 (1.0-4.6) Absolute Monos (auto) 0.64 (0.0-1.3) Lymphocytes % 20.8 L (24.0-44.0) % Monocytes % 8.2 (0.0-12.0) % Eosinophils % 4.6 (0.00-5.0) % Basophils % 0.5 (0.0-0.4) % Absolute Granulocytes 5.14 (1.4-6.9) Basophils # 0.04 (0-0.4) Sodium 141 (137-145) mmol/L Potassium 4.5 (3.5-5.1) mmol/L Chloride 105 (98-107) mmol/L Carbon Dioxide 22 (22-30) mmol/L Anion Gap 18.7 H (5-15) MEQ/L BUN 14 (7-17) mg/dL Creatinine 0.51 L (0.52-1.04) mg/dL Estimated GFR > 60.0 ML/MIN Glucose 139 H (74-106) mg/dL Lactic Acid 2.0 (0.4-2.0) Calcium 9.9 (8.4-10.2) mg/dL Total Bilirubin 0.30 (0.2-1.3) mg/dL AST 23 (14-36) U/L ALT 19 (0-35) U/L Alkaline Phosphatase 93 (38-126) U/L Serum Total Protein 8.4 H (6.3-8.2) g/dL Albumin 4.4 (3.5-5.0) g/dL - Progress Progress: improved, re-examined Air Movement: fair Progress Note: She is given breathing treatments in here. On reevaluation feeling better. She is maintaining oxygen saturation well above 90% on room air. Not in any distress at all. She has normal white count, lactic on the upper side of normal. Chest x-ray did not show focal consolidations. I believe she has bronchitis, will start her on doxycycline and have her followup outpatient with primary care. Discussed signs and symptoms of worsening aching in the ER she states understanding. Stable for discharge. 07/09/19 19:53 Antibiotics given: Yes Counseled pt/family regarding: lab results, diagnosis, need for follow-up, rad results - Departure Departure Disposition: Home Clinical Impression: Acute bronchitis Qualifiers: Bronchitis organism: unspecified organism Qualified Code(s): J20.9 - Acute bronchitis, unspecified Condition: Stable Critical Care Time: No Referrals: MIHAELA PEREIRA [Primary Care Provider] - Follow Up with PCP/3 days Instructions: Cough, Adult (DC) Additional Instructions: followup with primary care physician for evaluation2-3 days. Take Tylenol as needed.return to ER for worsening cough, fever/chills/shortness of breath et cetera. Prescriptions: Albuterol 8 gm Mdi Hfa [Ventolin Hfa MDI] 8 gm IH Q4H #1 hfa.[email or web address] Doxycycline Hyclate 100 mg [Vibramycin 100 MG] 100 mg PO BID #14 tab
[2019-07-09 19:40] LABS: ALBUMIN 4.4 g/dL (3.5-5.0); ALKALINE PHOSPHATASE 93 U/L (38-126); ANION GAP 18.7 MEQ/L (5-15); BLOOD UREA NITROGEN 14 mg/dL (7-17); CHLORIDE 105 mmol/L (98-107); Calcium 9.9 mg/dL (8.4-10.2); Carbon Dioxide 22 mmol/L (22-30); Creatinine 1 0.51 mg/dL (0.52-1.04); Glucose 139 mg/dL (74-106); Potassium 4.5 mmol/L (3.5-5.1); SGOT/AST 23 U/L (14-36); SGPT/ALT 19 U/L (0-35); SODIUM 141 mmol/L (137-145); Total Protein 8.4 g/dL (6.3-8.2)
[2019-07-09] MEDS ORDERED: Vibramycin 100 MG PO ONE (19:52)
[2019-07-09] MEDS ORDERED: Vibramycin 100 MG ONE (19:56)
[2019-07-09 20:21] VITALS: BP 167/100; PULSE 102; O2SAT 92
--- NOTE | 2019-07-10 08:52 | XRAY ---
Indication: Cough. Comparison: August 20, 2017. PA/lateral chest again hyperinflated and clear with a few incidental calcified granulomas. Heart and mediastinal structures within normal limits. Bony thorax intact again with osteopenia, degenerative changes, and scoliosis. Limited upper abdomen demonstrates ventral hernia mesh graft, cholecystectomy clips, and IVC filter. Impression: Nonacute hyperinflated chest with chronic features.
== END 2019-07-09 20:21 | disposition home or self-care (01) ==
LOC: ED 18:20
DX: J20.9 Acute bronchitis, unspecified (principal); I10 Essential (primary) hypertension; E11.9 Type 2 diabetes mellitus without complications; Z79.4 Long term (current) use of insulin; Z79.899 Other long term (current) drug therapy; G62.9 Polyneuropathy, unspecified; Z86.718 Personal history of other venous thrombosis and embolism; M81.0 Age-related osteoporosis without current pathological fracture; K21.9 Gastro-esophageal reflux disease without esophagitis; F41.9 Anxiety disorder, unspecified; F32.9 Major depressive disorder, single episode, unspecified; Z90.49 Acquired absence of other specified parts of digestive tract; Z87.442 Personal history of urinary calculi
CPT/HCPCS: 36415; 71046; 80053; 83605; 85025; 94640; 99284; J7609; A9270-GY

== ENCOUNTER 2021-04-07 20:25 | Emergency (ER) | payer MEDICARE, BC, OTHER ==
[2021-04-07] MEDS ORDERED: Zofran 4 MG/2 ML VIAL IV ONE (21:49)
[2021-04-07] MEDS ORDERED: ANTIVERT 25 MG PO ONE (21:49)
[2021-04-07] MEDS ORDERED: Zofran 4 MG/2 ML VIAL ONE (22:20)
[2021-04-07] MEDS ORDERED: ANTIVERT 25 MG ONE (22:21)
[2021-04-07] MEDS ORDERED: APRESOLINE 20 MG/ML INJ IV ONE (22:48)
[2021-04-07 22:51] LABS: Absolute Neutrophil Ct (ANC) 3.63 (1.4-6.9); BASOPHIL % 0.9 % (0.0-0.4); Basophil (Absolute #) 0.06 (0-0.4); Eosinophil % 6.8 % (0.00-5.0); Eosinophil (Absolute #) 0.47 (0-0.5); Hematocrit 37.9 % (35-47); Hemoglobin 11.3 gm/dl (12.0-16.0); Lymphocyte (Absolute #) 2.09 (1.0-4.6); Lymphocytes % 30.4 % (24.0-44.0); Mean Corpuscular Hemoglobin 22.6 pg (26-32); Mean Corpuscular Hgb Concent. 29.8 g/dl (32-36); Mean Platelet Volume 9.3 fl (7.5-11.0); Monocyte (Absolute #) 0.63 (0.0-1.3); Monocytes % 9.2 % (0.0-12.0); Neutrophil % 52.7 % (36.0-66.0); Platelet Count 237 K/mm3 (150-450); Red Blood Count 4.99 M/mm3 (4.1-5.4); Red Cell Distribution Width 18.4 % (11.5-14.0); White Blood Count 6.9 K/mm3 (4.0-10.5)
[2021-04-07] MEDS ORDERED: APRESOLINE 20 MG/ML INJ ONE (22:51)
[2021-04-07 23:00] LABS: Appearance CLEAR (CLEAR); Bilirubin NEGATIVE (NEGATIVE); Blood NEGATIVE Ery/ul (0-5); Glucose 50 mg/dL (NEGATIVE); Ketones NEGATIVE (NEGATIVE); Leukocyte Esterase NEGATIVE (NEGATIVE); Nitrite NEGATIVE (NEGATIVE); Protein,Urine Dip 100 (Negative); Specific Gravity 1.011 (1.005-1.025); Urobilinogen NEGATIVE mg/dL (0-1); WBC 0-2 /HPF (0-5)
[2021-04-07 23:07] LABS: ALBUMIN 4.6 g/dL (3.5-5.0); ALKALINE PHOSPHATASE 96 U/L (38-126); ANION GAP 17.1 MEQ/L (5-15); BLOOD UREA NITROGEN 17 mg/dL (7-17); CHLORIDE 101 mmol/L (98-107); Calcium 9.7 mg/dL (8.4-10.2); Carbon Dioxide 23 mmol/L (22-30); Creatinine 1 0.67 mg/dL (0.52-1.04); EST GLOMERULAR FILTRATION RATE > 60.0 ML/MIN; Glucose 207 mg/dL (74-106); MAGNESIUM 1.8 mg/dL (1.6-2.3); Potassium 4.5 mmol/L (3.5-5.1); SGOT/AST 25 U/L (14-36); SGPT/ALT 18 U/L (0-35); SODIUM 136 mmol/L (137-145)
[2021-04-07 23:09] VITALS: PULSE 99
--- NOTE | 2021-04-07 23:28 | ERPHSYRPT ---
- History of Present Illness Time Seen by Provider: 04/07/21 20:28 Patient Subjective Stated Complaint: Patient states " I went to my urinary MD yesterday and my blood pressure was up but I didn't feel really bad although I did become nauseated and did throw up. Today I started having a headache and I called my son and he came over and checked my B/P and it was 199/100 and just wasn't feeling well so I decided to come to ED." Triage Nursing Assessment: Patient arrived to ED and was assisted to room per son in W/C. Patient able to transfer self to bed without difficulty. Patient A/O times 4. Patient able to answer questions appropriatley. Patient denies any chest pain or SOB. Patient states she only has had problems with nausea and vomiting. Patient states her pain in her head goes from extreme and then it calms down. Patient is hypertensive upon arrival to ED. Patient states she has taken all B/P meds today. Patient with no further complaints. Patient with no HX MS or stents. Physician History: 76 years old female with history of hypertension, hyperlipidemia, diabetes mellitus presented in the ER with chief complaint of elevated blood pressure since yesterday. Patient reports yesterday she had a urology appointment [place] and on the way there she noticed that she was having some dizziness, lightheadedness and nausea and vomited times once. She checked her blood pressure it was in 160s. It got better later and was feeling fine this morning until late evening when she noticed that she is having mild headache and feeling spinning sensation. Patient reports room spinning sensation with not spinning herself. Denies any numbness tingling or focal weakness. Denies any visual symptoms. Denies any chest pain palpitations or shortness of breath. She got mildly nauseated but no vomiting today. No abdominal pain. Denies any increased salt intake. Patient reports usually her blood pressure stays around 120 systolic. On presentation patient blood pressure is more than 200 systolic. Timing/Duration: yesterday (1), intermittent, worse Severity: moderate Modifying Factors: Improves With: nothing Associated Symptoms: nausea, vomiting, headaches, No abdominal pain, No chest pain, No loss of appetite, No malaise, No syncope, No seizure, No weakness Allergies/Adverse Reactions: codeine Adverse Reaction (Verified 04/07/21 21:05) metoclopramide HCl [From Reglan] Adverse Reaction (Verified 04/07/21 21:05) morphine Adverse Reaction (Verified 04/07/21 21:05) SEDATED Sulfa (Sulfonamide Antibiotics) Adverse Reaction (Verified 04/07/21 21:05) Home Medications: Aspirin [Aspirin EC] 81 mg PO DAILY 08/18/16 [History] Atenolol 50 mg [Tenormin 50 mg] 25 mg PO DAILY 08/18/16 [History] Atorvastatin Calcium 40 mg PO HS 08/18/16 [History] Duloxetine HCl [Cymbalta] 90 mg PO DAILY 08/18/16 [History] Lisinopril 5 mg [Zestril 5 MG] 5 mg PO DAILY 08/21/17 [History] Metformin HCl 500 mg [Glucophage 500 MG] 500 mg PO BID 08/21/17 [History] Leflunomide [Arava] 10 mg PO DAILY 07/09/19 [History] Cholecalciferol (Vitamin D3) [Vitamin D] 1 units PO DAILY 04/07/21 [History] Cranberry Fruit Extract/Vit C [Azo Cranberry Softgel] 1 cap PO DAILY 04/07/21 [History] [place]-3 Fatty Acids/Fish Oil [Fish Oil 1,000 mg Capsule] 1 mg PO DAILY 04/07/21 [History] Vit C/E/Zn/Coppr/Lutein/Zeaxan [Preservision Areds 2 Softgel] 1 cap PO DAILY 04/07/21 [History] Hx Tetanus, Diphtheria Vaccination/Date Given: Yes Hx Influenza Vaccination/Date Given: Yes Hx Pneumococcal Vaccination/Date Given: Yes Immunizations Up to Date: Yes Travel Risk - International Travel Have you traveled outside of the country in past 3 weeks: No - Coronavirus Screening Are you exhibiting any of the following symptoms?: No Close contact with a COVID-19 positive Pt in past 14-21 Days: No - Vaccine Status Have you recieved a Covid-19 vaccination: Yes Curer Foam Rubber: Moderna - Vaccination Dates Date of 2cond Vaccination (if applicable): 11/10/20 - Review of Systems Constitutional: No Symptoms Eyes: No Symptoms Ears, Nose, & Throat: No Symptoms Respiratory: No Symptoms Cardiac: No Symptoms Abdominal/Gastrointestinal: Nausea Genitourinary Symptoms: No Symptoms Musculoskeletal: No Symptoms Skin: No Symptoms Neurological: Dizziness, Headache, No Seizure, No Sensory Changes, No Speech Changes Endocrine: No Symptoms Hematologic/Lymphatic: No Symptoms Immunological/Allergic: No Symptoms - Past Medical History Pertinent Past Medical History: Yes Neurological History: Peripheral Neuropathy, TIA ENT History: Cataracts Cardiac History: Deep Vein Thrombosis, Hypertension Respiratory History: No Pertinent History Endocrine Medical History: Diabetes Type II Musculoskeletal History: Arthritis, Fractures, Osteoporosis GI Medical History: GERD, Other History: Other Psycho-Social History: Anxiety, Depression Female Reproductive Disorders: Other Other Medical History: BECHETS. Hx IVC filter for DVT. L KNEE SURGERY. Pessiary. HX Kidney Stones, HX UTI,. hx colon resection - Past Surgical History Past Surgical History: Yes Neuro Surgical History: No Pertinent History Cardiac: No Pertinent History Respiratory: No Pertinent History Gastrointestinal: Appendectomy, Cholecystectomy, Colon Resection, Hernia Repair Genitourinary: No Pertinent History Musculoskeletal: No Pertinent History Female Surgical History: Hysterectomy Other Surgical History: GASTRIC BYPASS - Social History Smoking Status: Never smoker Exposure to second hand smoke: No Drug Use: none Patient Lives Alone: Yes - Female History Hx Last Menstrual Period: POST Hx Now: No - Nursing Vital Signs Nursing Vital Signs: Initial Vital Signs Temperature 98.4 F 04/07/21 21:03 Pulse Rate 82 04/07/21 21:03 Respiratory Rate 18 04/07/21 21:03 Blood Pressure 209/110 04/07/21 21:03 O2 Sat by Pulse Oximetry 92 L 04/07/21 21:03 Pain Scale Pain Intensity 2 - Physical Exam General Appearance: no apparent distress, alert, anxiety Eye Exam: PERRL/EOMI, eyes nml inspection Ears, Nose, Throat Exam: normal ENT inspection, TMs normal, pharynx normal Neck Exam: normal inspection, non-tender, supple, full range of motion, No meningismus Respiratory Exam: normal breath sounds, lungs clear Cardiovascular Exam: regular rate/rhythm, normal heart sounds Gastrointestinal/Abdomen Exam: soft, normal bowel sounds, No tenderness Back Exam: normal inspection, normal range of motion, No CVA tenderness Extremity Exam: normal inspection, normal range of motion, pelvis stable Neurologic Exam: alert, oriented x 3, cooperative, design specialist II-XII nml as tested, normal mood/affect, nml cerebellar function, nml station & gait, sensation nml, No motor deficits, No sensory deficit Skin Exam: normal color SpO2 Interpretation: normal SpO2: 94 O2 Delivery: Room Air - Course EKG Interpreted by Me: RATE (86), Sinus Rhythm, NORMAL AXIS, Non-specific ST Changes, Other (Borderline prolonged QT and MD intervals) Ordered Tests: Active Orders 24 hr Category Date Time Status Agricultural Extension Educator STAT Care 04/07/21 21:49 Active EKG-ER Only STAT Care 04/07/21 21:49 Active IV Insertion STAT Care 04/07/21 21:49 Active CHEST 1 VIEW (PORTABLE) Stat Exams 04/07/21 21:49 Taken HEAD WITHOUT CONTRAST [CT] Stat Exams 04/07/21 21:50 Taken CBC W DIFF Stat Lab 04/07/21 22:45 Completed CMP Stat Lab 04/07/21 22:45 Completed MAGNESIUM Stat Lab 04/07/21 22:45 Completed TROPONIN Q3H Lab 04/07/21 22:45 Completed TROPONIN Q3H Lab 04/08/21 01:00 Ordered TROPONIN Q3H Lab 04/08/21 04:00 Ordered TROPONIN Q3H Lab 04/08/21 07:00 Ordered TROPONIN Q3H Lab 04/08/21 10:00 Ordered UA W/RFX UR CULTURE Stat Lab 04/07/21 22:45 Completed Medication Summary Discontinued Medications Generic Name Dose Route Start Last Admin Trade Name Gloria PRN Reason Stop Dose Admin Hydralazine HCl 10 mg 04/07/21 22:48 04/07/21 22:56 Apresoline 20 Mg/Ml Inj IV 04/07/21 22:49 10 mg STAT ONE Administration Hydralazine HCl Confirm 04/07/21 22:51 Apresoline 20 Mg/Ml Inj Administered 04/07/21 22:52 Dose 20 mg .ROUTE .STK-MED ONE Meclizine HCl 25 mg 04/07/21 21:49 04/07/21 22:49 Antivert 25 Mg PO 04/07/21 21:50 25 mg STAT ONE Administration Meclizine HCl Confirm 04/07/21 22:21 Antivert 25 Mg Administered 04/07/21 22:22 Dose 25 mg .ROUTE .STK-MED ONE Ondansetron HCl 4 mg 04/07/21 21:49 04/07/21 22:49 Zofran 4 Mg/2 Ml Vial IV 04/07/21 21:50 4 mg STAT ONE Administration Ondansetron HCl Confirm 04/07/21 22:20 Zofran 4 Mg/2 Ml Vial Administered 04/07/21 22:21 Dose 4 mg .ROUTE .STK-MED ONE Lab/Rad Data: Laboratory Result Diagrams 04/07/21 22:45 04/07/21 22:45 Laboratory Results 04/07/21 04/07/21 04/07/21 Range/Units 22:45 22:45 22:45 WBC 6.9 (4.0-10.5) K/mm3 RBC 4.99 (4.1-5.4) M/mm3 Hgb 11.3 L (12.0-16.0) gm/dl Hct 37.9 (35-47) % MCV 76.0 L (78-100) fl MCH 22.6 L (26-32) pg MCHC 29.8 L (32-36) g/dl RDW 18.4 H (11.5-14.0) % Plt Count 237 (150-450) K/mm3 MPV 9.3 (7.5-11.0) fl Gran % 52.7 (36.0-66.0) % Eos # (Auto) 0.47 (0-0.5) Absolute Lymphs (auto) 2.09 (1.0-4.6) Absolute Monos (auto) 0.63 (0.0-1.3) Lymphocytes % 30.4 (24.0-44.0) % Monocytes % 9.2 (0.0-12.0) % Eosinophils % 6.8 H (0.00-5.0) % Basophils % 0.9 (0.0-0.4) % Absolute Granulocytes 3.63 (1.4-6.9) Basophils # 0.06 (0-0.4) Sodium 136 L (137-145) mmol/L Potassium 4.5 (3.5-5.1) mmol/L Chloride 101 (98-107) mmol/L Carbon Dioxide 23 (22-30) mmol/L Anion Gap 17.1 H (5-15) MEQ/L BUN 17 (7-17) mg/dL Creatinine 0.67 (0.52-1.04) mg/dL Estimated GFR > 60.0 ML/MIN Glucose 207 H (74-106) mg/dL Calcium 9.7 (8.4-10.2) mg/dL Magnesium 1.8 (1.6-2.3) mg/dL Total Bilirubin 0.10 L (0.2-1.3) mg/dL AST 25 (14-36) U/L ALT 18 (0-35) U/L Alkaline Phosphatase 96 (38-126) U/L Troponin I < 0.012 (0.000-0.034) ng/mL Serum Total Protein 8.0 (6.3-8.2) g/dL Albumin 4.6 (3.5-5.0) g/dL Urine Color (YELLOW) Urine Appearance (CLEAR) Urine pH (5-6) Ur Specific [place] (1.005-1.025) Urine Protein (Negative) Urine Ketones (NEGATIVE) Urine Blood (0-5) Mat/ul Urine Nitrite (NEGATIVE) Urine Bilirubin (NEGATIVE) Urine Urobilinogen (0-1) mg/dL Ur Leukocyte Esterase (NEGATIVE) Urine WBC (Auto) (0-5) /HPF Urine RBC (Auto) (0-2) /HPF U Epithel Cells (Auto) (FEW) /HPF Urine Bacteria (Auto) (NEGATIVE) /HPF Urine Culture Reflexed (NO) Urine Glucose (NEGATIVE) mg/dL 04/07/21 Range/Units 22:45 WBC (4.0-10.5) K/mm3 RBC (4.1-5.4) M/mm3 Hgb (12.0-16.0) gm/dl Hct (35-47) % MCV (78-100) fl MCH (26-32) pg MCHC (32-36) g/dl RDW (11.5-14.0) % Plt Count (150-450) K/mm3 MPV (7.5-11.0) fl Gran % (36.0-66.0) % Eos # (Auto) (0-0.5) Absolute Lymphs (auto) (1.0-4.6) Absolute Monos (auto) (0.0-1.3) Lymphocytes % (24.0-44.0) % Monocytes % (0.0-12.0) % Eosinophils % (0.00-5.0) % Basophils % (0.0-0.4) % Absolute Granulocytes (1.4-6.9) Basophils # (0-0.4) Sodium (137-145) mmol/L Potassium (3.5-5.1) mmol/L Chloride (98-107) mmol/L Carbon Dioxide (22-30) mmol/L Anion Gap (5-15) MEQ/L BUN (7-17) mg/dL Creatinine (0.52-1.04) mg/dL Estimated GFR ML/MIN Glucose (74-106) mg/dL Calcium (8.4-10.2) mg/dL Magnesium (1.6-2.3) mg/dL Total Bilirubin (0.2-1.3) mg/dL AST (14-36) U/L ALT (0-35) U/L Alkaline Phosphatase (38-126) U/L Troponin I (0.000-0.034) ng/mL Serum Total Protein (6.3-8.2) g/dL Albumin (3.5-5.0) g/dL Urine Color STRAW (YELLOW) Urine Appearance CLEAR (CLEAR) Urine pH 5.0 (5-6) Ur Specific [place] 1.011 (1.005-1.025) Urine Protein 100 (Negative) Urine Ketones NEGATIVE (NEGATIVE) Urine Blood NEGATIVE (0-5) Mat/ul Urine Nitrite NEGATIVE (NEGATIVE) Urine Bilirubin NEGATIVE (NEGATIVE) Urine Urobilinogen NEGATIVE (0-1) mg/dL Ur Leukocyte Esterase NEGATIVE (NEGATIVE) Urine WBC (Auto) 0-2 (0-5) /HPF Urine RBC (Auto) NONE (0-2) /HPF U Epithel Cells (Auto) NONE (FEW) /HPF Urine Bacteria (Auto) NONE (NEGATIVE) /HPF Urine Culture Reflexed NO (NO) Urine Glucose 50 (NEGATIVE) mg/dL - Progress Progress: improved, re-examined Progress Note: 04/07/21 23:25 She has nonfocal neuro exam throughout stay in the ER. She has mild vertiginous symptoms and given a dose of meclizine along with Zofran, on reevaluation her dizziness/spinning sensation is completely resolved. I have obtained CT head which is negative for any acute intracranial findings. Patient blood pressure systolic was still 202, given a dose of hydralazine and currently in 140s. Denies any chest pain palpitations or shortness of breath. No abdominal pain. EKG showed normal sinus rhythm with no acute ischemic changes. Negative troponins. Mildly elevated gap but otherwise grossly unremarkable chemistries. She is recommended to increase hydration, decreased salt intake. Patient is advised to increase the dose of lisinopril 5 mg to 10 mg if her blood pressure constantly stays greater than 150. She is also given a prescription of clonidine to take only as needed. She is advised to keep a log and follow-up with her primary care. Her vertiginous symptoms are clearly peripheral and do not think has any central element. Does not have any difficulty ambulation while in the ER. Patient has good support system at home. Discussed signs symptoms of worsening needing return to ER which she seems understanding. Stable for discharge. Counseled pt/family regarding: lab results, diagnosis, need for follow-up, rad results - Departure Departure Disposition: Home Clinical Impression: Uncontrolled hypertension Condition: Stable Critical Care Time: No Referrals: MIHAELA PEREIRA [Primary Care Provider] - (Call tomorrow for reevaluation) Instructions: Vertigo (a Type of Dizziness) (DC), Malignant Hypertension (DC) Additional Instructions: Take low-salt diet. Monitor your blood pressure regularly, keep a log and follow-up with your primary care physician for reevaluation. Take clonidine only as needed if blood pressure greater than 160 and can repeat after 12 hours. Return to ER for uncontrolled hypertension, headache, dizziness, numbness tingling weakness, blurry vision, chest pain palpitations, shortness of breath or abdominal pain. Continue with your current blood pressure medications but if your blood pressure constantly stays greater than 150 you can increase the dose of lisinopril to 10 mg daily instead of 5 mg. Prescriptions: Clonidine HCl 0.1 mg [Catapres 0.1 MG] 0.1 mg PO Q12H PRN PRN 10 Days #10 tablet PRN Reason: Hypertension
[2021-04-08 00:02] VITALS: BP 152/88; O2SAT 95
--- NOTE | 2021-04-08 08:53 | XRAY ---
Indication: Dizziness. Hypertension. Multiple contiguous axial images obtained through the head without contrast. Comparison: None There is age-appropriate global atrophy and mild/moderate periventricular degenerative micro-ischemia bilaterally. No acute intracranial hemorrhage, abnormal extra-axial fluid collection, or mass effect. Fourth ventricle is midline without hydrocephalus. Bony calvarium intact. Visualized paranasal sinuses and mastoid air cells are clear. Impression: Nonacute senile brain.
--- NOTE | 2021-04-08 08:55 | XRAY ---
Indication: Hypertension. COPD. Comparison: July 09, 2019. Portable chest again demonstrates COPD, chronic interstitial lung markings, focal eventration right hemidiaphragm, and a few calcified granulomas. Heart not enlarged. Bony thorax intact again with osteopenia and degenerative changes. No new/acute abnormalities. Impression: Continued nonacute chest with chronic features.
== END 2021-04-08 | disposition home or self-care (01) ==
LOC: ED 20:25
DX: I10 Essential (primary) hypertension (principal)
CPT/HCPCS: 36000; 36415; 70450; 71045; 80053; 81001; 83735; 84484; 85025; 93005; 93041; 96374; 96375; 99284; J0360; J2405; A9270-GY

== ENCOUNTER 2021-07-26 08:59 | Inpatient (IN) | payer MEDICARE, BC ==
[2021-07-26 09:29] LABS: Appearance SLIGHTLY CLOUDY (CLEAR); Bilirubin NEGATIVE (NEGATIVE); Blood NEGATIVE Ery/ul (0-5); Glucose NEGATIVE (NEGATIVE); Hyaline Casts 0-2 /LPF (0-2); Ketones NEGATIVE (NEGATIVE); Leukocyte Esterase NEGATIVE (NEGATIVE); Nitrite NEGATIVE (NEGATIVE); Protein,Urine Dip >=500 (Negative); RBC 0-2 /HPF (0-2); Urobilinogen NEGATIVE mg/dL (0-1)
[2021-07-26] MEDS ORDERED: Sodium Chloride 0.9% 1000 ML 1,000 ML ONE (09:41)
[2021-07-26] MEDS: Sodium Chloride 0.9% 1000 ML 1,000 ML IV SCH ×3 (09:42→22:07)
[2021-07-26 10:01] LABS: Absolute Neutrophil Ct (ANC) 3.62 (1.4-6.9); BASOPHIL % 0.4 % (0.0-0.4); Basophil (Absolute #) 0.02 (0-0.4); Eosinophil % 0.8 % (0.00-5.0); Eosinophil (Absolute #) 0.04 (0-0.5); Hematocrit 36.2 % (35-47); Hemoglobin 10.7 gm/dl (12.0-16.0); Lymphocytes % 14.6 % (24.0-44.0); Mean Cell Volume 78.4 fl (78-100); Mean Corpuscular Hemoglobin 23.2 pg (26-32); Mean Corpuscular Hgb Concent. 29.6 g/dl (32-36); Monocyte (Absolute #) 0.42 (0.0-1.3); Monocytes % 8.8 % (0.0-12.0); Neutrophil % 75.4 % (36.0-66.0); Platelet Count 220 K/mm3 (150-450); Red Blood Count 4.62 M/mm3 (4.1-5.4); Red Cell Distribution Width 17.7 % (11.5-14.0); White Blood Count 4.8 K/mm3 (4.0-10.5)
--- NOTE | 2021-07-26 10:06 | ERPHSYRPT ---
- History of Present Illness Time Seen by Provider: 07/26/21 09:15 Source: patient Exam Limitations: no limitations Patient Subjective Stated Complaint: Pt states "I think I have a UTI. I do not feel well. I have not felt well for a week and that is the only thing I can t hink of." Triage Nursing Assessment: Pt arrived via Medic 1. Pt alert and oriented X 3, skin pwd Pt able to speak in clear full sentences pt in no apparent repsiratory distress. Pt resting comfortably on the bed. Physician History: This is a 76-year-old white female who has not been feeling well for approximately 1 week. Patient has a history of hypertension, diabetes, hypercholesterolemia and, per her report, anemia. Patient denies chest pain. She denies shortness of breath. She thinks she might have a UTI. She has a history of recurrent current UTIs. She has no significant abdominal pain. Patient states that she feels weak and has not been eating or drinking well the last week. Timing/Duration: week(s) (1) Severity: moderate Associated Symptoms: loss of appetite, weakness, No nausea, No vomiting, No abdominal pain, No shortness of breath, No chest pain, No fever Allergies/Adverse Reactions: codeine Adverse Reaction (Verified 04/07/21 21:05) metoclopramide HCl [From Reglan] Adverse Reaction (Verified 04/07/21 21:05) morphine Adverse Reaction (Verified 04/07/21 21:05) SEDATED Sulfa (Sulfonamide Antibiotics) Adverse Reaction (Verified 04/07/21 21:05) Home Medications: Aspirin [Aspirin EC] 81 mg PO DAILY 08/18/16 [History] Atenolol 50 mg [Tenormin 50 mg] 25 mg PO DAILY 08/18/16 [History] Atorvastatin Calcium 40 mg PO HS 08/18/16 [History] Duloxetine HCl [Cymbalta] 90 mg PO DAILY 08/18/16 [History] Lisinopril 5 mg [Zestril 5 MG] 5 mg PO DAILY 08/21/17 [History] Metformin HCl 500 mg [Glucophage 500 MG] 500 mg PO BID 08/21/17 [History] Leflunomide [Arava] 10 mg PO DAILY 07/09/19 [History] Cholecalciferol (Vitamin D3) [Vitamin D] 1 units PO DAILY 04/07/21 [History] Cranberry Fruit Extract/Vit C [Azo Cranberry Softgel] 1 cap PO DAILY 04/07/21 [History] [place]-3 Fatty Acids/Fish Oil [Fish Oil 1,000 mg Capsule] 1 mg PO DAILY 04/07/21 [History] Vit C/E/Zn/Coppr/Lutein/Zeaxan [Preservision Areds 2 Softgel] 1 cap PO DAILY 04/07/21 [History] Hx Tetanus, Diphtheria Vaccination/Date Given: Yes Hx Influenza Vaccination/Date Given: Yes Hx Pneumococcal Vaccination/Date Given: Yes Immunizations Up to Date: Yes Travel Risk - International Travel Have you traveled outside of the country in past 3 weeks: No - Coronavirus Screening Are you exhibiting any of the following symptoms?: No Close contact with a COVID-19 positive Pt in past 14-21 Days: No - Vaccine Status Have you recieved a Covid-19 vaccination: 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[place] - Vaccination Dates Date of 2cond Vaccination (if applicable): 11/10/2020 - Review of Systems Constitutional: No Symptoms, Weakness Eyes: No Symptoms Ears, Nose, & Throat: No Symptoms Respiratory: No Symptoms Cardiac: No Symptoms Abdominal/Gastrointestinal: Appetite Changes Genitourinary Symptoms: No Symptoms Musculoskeletal: No Symptoms Skin: No Symptoms Neurological: No Symptoms Psychological: No Symptoms Endocrine: No Symptoms Hematologic/Lymphatic: No Symptoms Immunological/Allergic: No Symptoms All Other Systems: Reviewed and Negative - Past Medical History Pertinent Past Medical History: Yes Neurological History: Peripheral Neuropathy, TIA ENT History: Cataracts Cardiac History: Deep Vein Thrombosis, Hypertension Respiratory History: No Pertinent History Endocrine Medical History: Diabetes Type II Musculoskeletal History: Arthritis, Fractures, Osteoporosis GI Medical History: GERD, Other History: Other Psycho-Social History: Anxiety, Depression Female Reproductive Disorders: Other Other Medical History: BECHETS. Hx IVC filter for DVT. L KNEE SURGERY. Pessiary. HX Kidney Stones, HX UTI,. hx colon resection - Past Surgical History Past Surgical History: Yes Neuro Surgical History: No Pertinent History Cardiac: No Pertinent History Respiratory: No Pertinent History Gastrointestinal: Appendectomy, Cholecystectomy, Colon Resection, Hernia Repair Genitourinary: No Pertinent History Musculoskeletal: No Pertinent History Female Surgical History: Hysterectomy Other Surgical History: GASTRIC BYPASS - Social History Smoking Status: Never smoker Exposure to second hand smoke: No Drug Use: none Patient Lives Alone: Yes - Nursing Vital Signs Nursing Vital Signs: Initial Vital Signs Temperature 97.2 F 07/26/21 09:01 Pain Scale Pain Intensity 0 - Physical Exam General Appearance: no apparent distress, alert, anxiety, thin Eye Exam: pale conjunctivae Ears, Nose, Throat Exam: dry mucous membranes Neck Exam: normal inspection, non-tender, supple, full range of motion Respiratory Exam: normal breath sounds, lungs clear, airway intact, No chest te nderness, No respiratory distress Cardiovascular Exam: regular rate/rhythm, normal heart sounds, normal peripheral pulses Gastrointestinal/Abdomen Exam: soft, normal bowel sounds, No tenderness Pelvic Exam: not done Rectal Exam: not done Back Exam: normal inspection, normal range of motion, No CVA tenderness, No vertebral tenderness Extremity Exam: normal inspection, normal range of motion, pelvis stable Neurologic Exam: alert, oriented x 3, cooperative, 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 When compared to EKG dated 04/07/2021, the prolonged CT and QT intervals have resolved.) Ordered Tests: Active Orders 24 hr Category Date Time Status EKG-ER Only STAT Care 07/26/21 09:38 Active IV Insertion STAT Care 07/26/21 09:38 Active AMYLASE Stat Lab 07/26/21 09:48 Completed CBC W DIFF Stat Lab 07/26/21 09:48 Completed CMP Stat Lab 07/26/21 09:48 Completed LIPASE Stat Lab 07/26/21 09:48 Completed Lactic Acid Stat Lab 07/26/21 09:52 Completed T4 (Thyroxine) Stat Lab 07/26/21 09:45 Completed TROPONIN Q3H Lab 07/26/21 09:45 Completed TROPONIN Q3H Lab 07/26/21 12:45 Ordered TROPONIN Q3H Lab 07/26/21 15:45 Ordered TROPONIN Q3H Lab 07/26/21 18:45 Ordered TROPONIN Q3H Lab 07/26/21 21:45 Ordered TSH [TSH, 3RD Generation] Stat Lab 07/26/21 09:45 Completed UA W/RFX UR CULTURE Stat Lab 07/26/21 09:18 Completed Transfer Order Routine Transfer 07/26/21 Ordered Medication Summary Generic Name Dose Route Start Last Admin Trade Name Gloria PRN Reason Stop Dose Admin Sodium Chloride 1,000 mls @ 100 mls/hr 07/26/21 09:45 07/26/21 09:42 Sodium Chloride 0.9% 1000 Ml IV 08/25/21 09:44 100 mls/hr .Q10H STEVE Administration Lab/Rad Data: Laboratory Result Diagrams 07/26/21 09:48 07/26/21 09:48 Laboratory Results 07/26/21 07/26/21 07/26/21 Range/Units 09:52 09:48 09:48 WBC 4.8 (4.0-10.5) K/mm3 RBC 4.62 (4.1-5.4) M/mm3 Hgb 10.7 L (12.0-16.0) gm/dl Hct 36.2 (35-47) % MCV 78.4 (78-100) fl MCH 23.2 L (26-32) pg MCHC 29.6 L (32-36) g/dl RDW 17.7 H (11.5-14.0) % Plt Count 220 (150-450) K/mm3 MPV 9.0 (7.5-11.0) fl Gran % 75.4 H (36.0-66.0) % Eos # (Auto) 0.04 (0-0.5) Absolute Lymphs (auto) 0.70 L (1.0-4.6) Absolute Monos (auto) 0.42 (0.0-1.3) Lymphocytes % 14.6 L (24.0-44.0) % Monocytes % 8.8 (0.0-12.0) % Eosinophils % 0.8 (0.00-5.0) % Basophils % 0.4 (0.0-0.4) % Absolute Granulocytes 3.62 (1.4-6.9) Basophils # 0.02 (0-0.4) Sodium 137 (137-145) mmol/L Potassium 4.9 (3.5-5.1) mmol/L Chloride 103 (98-107) mmol/L Carbon Dioxide 23 (22-30) mmol/L Anion Gap 16.0 H (5-15) MEQ/L BUN 14 (7-17) mg/dL Creatinine 0.60 (0.52-1.04) mg/dL Estimated GFR > 60.0 ML/MIN Glucose 153 H (74-106) mg/dL Lactic Acid 1.1 (0.4-2.0) Calcium 9.2 (8.4-10.2) mg/dL Total Bilirubin 0.30 (0.2-1.3) mg/dL AST 31 (14-36) U/L ALT 24 (0-35) U/L Alkaline Phosphatase 72 (38-126) U/L Troponin I (0.000-0.034) ng/mL Serum Total Protein 7.7 (6.3-8.2) g/dL Albumin 4.4 (3.5-5.0) g/dL Amylase 44 (30-110) U/L Lipase 48 (23-300) U/L Thyroxine (T4) (5.53-10.96) ug/dL TSH 3rd Generation (0.47-4.68) mIU/L Urine Color (YELLOW) Urine Appearance (CLEAR) Urine pH (5-6) Ur Specific [place] (1.005-1.025) Urine Protein (Negative) Urine Ketones (NEGATIVE) Urine Blood (0-5) Mat/ul Urine Nitrite (NEGATIVE) Urine Bilirubin (NEGATIVE) Urine Urobilinogen (0-1) mg/dL Ur Leukocyte Esterase (NEGATIVE) Urine WBC (Auto) (0-5) /HPF Urine RBC (Auto) (0-2) /HPF U Hyaline Cast (Auto) (0-2) /LPF U Epithel Cells (Auto) (FEW) /HPF Urine Bacteria (Auto) (NEGATIVE) /HPF Urine Culture Reflexed (NO) Urine Glucose (NEGATIVE) mg/dL 07/26/21 07/26/21 07/26/21 Range/Units 09:45 09:45 09:45 WBC (4.0-10.5) K/mm3 RBC (4.1-5.4) M/mm3 Hgb (12.0-16.0) gm/dl Hct (35-47) % MCV (78-100) fl MCH (26-32) pg MCHC (32-36) g/dl RDW (11.5-14.0) % Plt Count (150-450) K/mm3 MPV (7.5-11.0) fl Gran % (36.0-66.0) % Eos # (Auto) (0-0.5) Absolute Lymphs (auto) (1.0-4.6) Absolute Monos (auto) (0.0-1.3) Lymphocytes % (24.0-44.0) % Monocytes % (0.0-12.0) % Eosinophils % (0.00-5.0) % Basophils % (0.0-0.4) % Absolute Granulocytes (1.4-6.9) Basophils # (0-0.4) Sodium (137-145) mmol/L Potassium (3.5-5.1) mmol/L Chloride (98-107) mmol/L Carbon Dioxide (22-30) mmol/L Anion Gap (5-15) MEQ/L BUN (7-17) mg/dL Creatinine (0.52-1.04) mg/dL Estimated GFR ML/MIN Glucose (74-106) mg/dL Lactic Acid (0.4-2.0) Calcium (8.4-10.2) mg/dL Total Bilirubin (0.2-1.3) mg/dL AST (14-36) U/L ALT (0-35) U/L Alkaline Phosphatase (38-126) U/L Troponin I 0.096 H* (0.000-0.034) ng/mL Serum Total Protein (6.3-8.2) g/dL Albumin (3.5-5.0) g/dL Amylase (30-110) U/L Lipase (23-300) U/L Thyroxine (T4) 8.90 (5.53-10.96) ug/dL TSH 3rd Generation 1.330 (0.47-4.68) mIU/L Urine Color (YELLOW) Urine Appearance (CLEAR) Urine pH (5-6) Ur Specific [place] (1.005-1.025) Urine Protein (Negative) Urine Ketones (NEGATIVE) Urine Blood (0-5) Mat/ul Urine Nitrite (NEGATIVE) Urine Bilirubin (NEGATIVE) Urine Urobilinogen (0-1) mg/dL Ur Leukocyte Esterase (NEGATIVE) Urine WBC (Auto) (0-5) /HPF Urine RBC (Auto) (0-2) /HPF U Hyaline Cast (Auto) (0-2) /LPF U Epithel Cells (Auto) (FEW) /HPF Urine Bacteria (Auto) (NEGATIVE) /HPF Urine Culture Reflexed (NO) Urine Glucose (NEGATIVE) mg/dL 07/26/21 Range/Units 09:18 WBC (4.0-10.5) K/mm3 RBC (4.1-5.4) M/mm3 Hgb (12.0-16.0) gm/dl Hct (35-47) % MCV (78-100) fl MCH (26-32) pg MCHC (32-36) g/dl RDW (11.5-14.0) % Plt Count (150-450) K/mm3 MPV (7.5-11.0) fl Gran % (36.0-66.0) % Eos # (Auto) (0-0.5) Absolute Lymphs (auto) (1.0-4.6) Absolute Monos (auto) (0.0-1.3) Lymphocytes % (24.0-44.0) % Monocytes % (0.0-12.0) % Eosinophils % (0.00-5.0) % Basophils % (0.0-0.4) % Absolute Granulocytes (1.4-6.9) Basophils # (0-0.4) Sodium (137-145) mmol/L Potassium (3.5-5.1) mmol/L Chloride (98-107) mmol/L Carbon Dioxide (22-30) mmol/L Anion Gap (5-15) MEQ/L BUN (7-17) mg/dL Creatinine (0.52-1.04) mg/dL Estimated GFR ML/MIN Glucose (74-106) mg/dL Lactic Acid (0.4-2.0) Calcium (8.4-10.2) mg/dL Total Bilirubin (0.2-1.3) mg/dL AST (14-36) U/L ALT (0-35) U/L Alkaline Phosphatase (38-126) U/L Troponin I (0.000-0.034) ng/mL Serum Total Protein (6.3-8.2) g/dL Albumin (3.5-5.0) g/dL Amylase (30-110) U/L Lipase (23-300) U/L Thyroxine (T4) (5.53-10.96) ug/dL TSH 3rd Generation (0.47-4.68) mIU/L Urine Color YELLOW (YELLOW) Urine Appearance SLIGHTLY CLOUDY (CLEAR) Urine pH 5.0 (5-6) Ur Specific [place] 1.020 (1.005-1.025) Urine Protein >=500 (Negative) Urine Ketones NEGATIVE (NEGATIVE) Urine Blood NEGATIVE (0-5) Mat/ul Urine Nitrite NEGATIVE (NEGATIVE) Urine Bilirubin NEGATIVE (NEGATIVE) Urine Urobilinogen NEGATIVE (0-1) mg/dL Ur Leukocyte Esterase NEGATIVE (NEGATIVE) Urine WBC (Auto) NONE (0-5) /HPF Urine RBC (Auto) 0-2 (0-2) /HPF U Hyaline Cast (Auto) 0-2 (0-2) /LPF U Epithel Cells (Auto) NONE (FEW) /HPF Urine Bacteria (Auto) NONE (NEGATIVE) /HPF Urine Culture Reflexed NO (NO) Urine Glucose NEGATIVE (NEGATIVE) mg/dL - Progress Progress: unchanged Progress Note: 07/26/21 11:32 Medical decision making: This patient has a non-STEMI. She currently has no chest pain she is not short of breath. I spoke with the patient's assembling inspector, Dr. Benoit out of [facility] and he feels the patient should be transferred to [facility] once a bed is available. Until then, we will plan an attempt to place her in observation under telemetry in our facility with serial troponin levels being obtained. We have put a call into Dr. Nichols, our on-call hospitalist and he will contact us. I also spoke with Dr. Fischer the hospitalist at [facility]. He accepts the patient in transfer to be on observation/telemetry bed when a bed becomes available. I was informed this might not be till tomorrow, 07/27/2021. 07/26/21 12:20 Medical decision making: Dr. Nichols agrees to place the patient in observation on a telemetry bed. We will perform serial cardiac enzymes. If they continue to rise, he is aware that he will contact either the hospitalist on-call at [facility] or Dr. Benoit who is the patient's assembling inspector about taking the patient directly to the [facility]. He also is aware that if her cardiac enzymes continue to decrease she might be continued to be observed here with follow-up with her assembling inspector as an outpatient. Discussed with : Tonio, Other (Dr. Benoit pts assembling inspector) Counseled pt/family regarding: lab results, diagnosis - Departure Departure Disposition: Observation Clinical Impression: Non-STEMI (non-ST elevated myocardial infarction), Weakness Condition: Stable Critical Care Time: Yes Critical Care Time(excluding separately billable procedures): Critical 30-74 mins (30 minutes) Referrals: MIHAELA PEREIRA [Primary Care Provider] - Follow up/PCP as directed
[2021-07-26 10:09] LABS: ALBUMIN 4.4 g/dL (3.5-5.0); ALKALINE PHOSPHATASE 72 U/L (38-126); AMYLASE 44 U/L (30-110); BLOOD UREA NITROGEN 14 mg/dL (7-17); CHLORIDE 103 mmol/L (98-107); Calcium 9.2 mg/dL (8.4-10.2); Carbon Dioxide 23 mmol/L (22-30); EST GLOMERULAR FILTRATION RATE > 60.0 ML/MIN; Glucose 153 mg/dL (74-106); LIPASE 48 U/L (23-300); Potassium 4.9 mmol/L (3.5-5.1); SGOT/AST 31 U/L (14-36); SGPT/ALT 24 U/L (0-35); SODIUM 137 mmol/L (137-145); Total Protein 7.7 g/dL (6.3-8.2)
[2021-07-26] MEDS ORDERED: NORCO 5/325 MG PO ONE ×2 (12:36→17:28)
[2021-07-26] MEDS ORDERED: ENOXAPARIN SODIUM SQ ONE ×2 (13:26→13:37)
[2021-07-26] MEDS ORDERED: LOPRESSOR 5 MG/5 ML INJECTION IV ONE ×2 (13:26→13:36)
[2021-07-26] MEDS ORDERED: LIPITOR 40MG PO STA (13:27)
[2021-07-26] MEDS ORDERED: LIPITOR 40MG ONE (13:36)
[2021-07-26] MEDS ORDERED: NORCO 5/325 MG ONE ×2 (13:37→18:11)
[2021-07-26 13:49] LABS: INFLUENZA A NEGATIVE (NEGATIVE); INFLUENZA B NEGATIVE (NEGATIVE); RESPIRATORY SYNCTIAL VIRUS NEGATIVE (Negative)
[2021-07-26 14:27] LABS: SARS-CoV-2 Xpert Express POSITIVE (NEGATIVE)
[2021-07-26] MEDS ORDERED: PLAVIX 75 MG Tablet PO ONE (20:26)
[2021-07-26] MEDS ORDERED: DECADRON 10MG INJ. IV ONE (20:27)
[2021-07-26] MEDS ORDERED: DECADRON 10MG INJ. ONE (20:42)
[2021-07-26] MEDS ORDERED: PLAVIX 75 MG Tablet ONE ×2 (20:42→21:35)
[2021-07-26] MEDS ORDERED: NORCO 5/325 MG PO PRN (21:29)
[2021-07-26] MEDS ORDERED: Zofran 4 MG/2 ML VIAL IV PRN (21:29)
[2021-07-26] MEDS ORDERED: REMDESIVIR 200 MG in Sodium Chloride 0.9% 250 ML 250 ML IV ONE (21:29)
[2021-07-26] MEDS ORDERED: TYLENOL 325 MG PO PRN (21:29)
[2021-07-26] MEDS ORDERED: Sodium Chloride 0.9% 250 ML 250 ML IV ONE (21:45)
[2021-07-26] MEDS ORDERED: REMDESIVIR IV ONE (21:46)
[2021-07-26] MEDS: PLAVIX 75 MG Tablet PO SCH (22:06)
[2021-07-26] MEDS ORDERED: TYLENOL EXTRA STRENGTH 500 MG PO PRN (22:39)
[2021-07-26] MEDS ORDERED: DESYREL 50 MG PO ONE (23:10)
[2021-07-26] MEDS ORDERED: NEURONTIN 300 MG PO ONE (23:13)
[2021-07-26] MEDS ORDERED: Cymbalta 30 MG Capsule PO ONE (23:13)
[2021-07-26] MEDS ORDERED: Protonix 40MG Tablet PO ONE (23:14)
[2021-07-26] MEDS ORDERED: LIPITOR 40MG PO ONE (23:17)
[2021-07-26] MEDS ORDERED: ZOCOR 20MG ONE (23:22)
[2021-07-26] MEDS ORDERED: ZOCOR 20MG PO ONE (23:25)
[2021-07-26] MEDS ORDERED: Desyrel 150 MG ONE (23:25)
[2021-07-27 05:45] LABS: Hematocrit 37.9 % (35-47); Hemoglobin 11.1 gm/dl (12.0-16.0); Mean Cell Volume 77.8 fl (78-100); Mean Corpuscular Hemoglobin 22.8 pg (26-32); Mean Corpuscular Hgb Concent. 29.3 g/dl (32-36); Mean Platelet Volume 9.2 fl (7.5-11.0); Platelet Count 231 K/mm3 (150-450); Red Blood Count 4.87 M/mm3 (4.1-5.4); Red Cell Distribution Width 17.7 % (11.5-14.0); White Blood Count 3.3 K/mm3 (4.0-10.5)
[2021-07-27 06:02] LABS: INR 1.14 (0.8-3.0); PROTIME 13.4 SECONDS (9.4-12.5)
[2021-07-27 06:16] LABS: ALKALINE PHOSPHATASE 68 U/L (38-126); BLOOD UREA NITROGEN 11 mg/dL (7-17); CHLORIDE 105 mmol/L (98-107); Carbon Dioxide 21 mmol/L (22-30); Creatinine 1 0.51 mg/dL (0.52-1.04); EST GLOMERULAR FILTRATION RATE > 60.0 ML/MIN; Glucose 261 mg/dL (74-106); Potassium 4.3 mmol/L (3.5-5.1); SGOT/AST 31 U/L (14-36); SGPT/ALT 23 U/L (0-35); SODIUM 141 mmol/L (137-145); Total Protein 6.9 g/dL (6.3-8.2)
[2021-07-27] MEDS: HUMALOG SQ PRN (07:21)
[2021-07-27 08:19] LABS: Lymphocytes 18 % (24-44); Monocyte 2 % (0.0-12.0); Neutrophils 80 % (36.0-66.0); Total Cells Counted 100
[2021-07-27 08:20] LABS: Platelet Estimate NORMAL (NORMAL)
[2021-07-27] MEDS: Ativan 1 MG PO PRN (09:02)
[2021-07-27] MEDS: DECADRON 10MG INJ. IV SCH (09:02)
[2021-07-27] MEDS: ENOXAPARIN SODIUM SQ SCH (09:02)
[2021-07-27] MEDS: PLAVIX 75 MG Tablet PO SCH (09:02)
[2021-07-27] MEDS: Lomotil PO PRN (09:32)
[2021-07-27] MEDS ORDERED: NON-FORMULARY ITEM PO PRN (09:50)
[2021-07-27] MEDS ORDERED: BENZ-O-STHETIC MM PRN (09:56)
[2021-07-27] MEDS ORDERED: LIPITOR 40MG PO SCH ×2 (10:00→22:00)
[2021-07-27] MEDS ORDERED: Lopressor 50 MG PO SCH (10:00)
[2021-07-27] MEDS: Sodium Chloride 0.9% 1000 ML 1,000 ML IV SCH (10:14)
[2021-07-27] MEDS ORDERED: Catapres 0.1 MG PO PRN (10:34)
[2021-07-27] MEDS: HYDROCODONE-ACETAMIN 10-325 MG PO SCH (10:54)
[2021-07-27] MEDS: NEURONTIN 300 MG PO SCH ×3 (10:54→21:52)
[2021-07-27] MEDS: Glucophage 500 MG PO SCH ×2 (11:01→16:15)
[2021-07-27] MEDS: FEOSOL 325 MG PO SCH (11:01)
[2021-07-27] MEDS: TENORMIN 50 MG PO SCH (11:12)
[2021-07-27] MEDS: Protonix 40MG Tablet PO SCH ×2 (11:40→21:52)
[2021-07-27] MEDS: Zestril 20 MG PO SCH (11:40)
[2021-07-27] MEDS: VITAMIN D PO SCH (11:40)
[2021-07-27] MEDS: Desyrel 150 MG PO SCH (21:52)
[2021-07-27] MEDS: ZOCOR 20MG PO SCH (21:52)
[2021-07-27] MEDS: Cymbalta 30 MG Capsule PO SCH (21:52)
[2021-07-27] MEDS: REMDESIVIR 100 MG in Sodium Chloride 0.9% 100 ML BAG 100 ML IV SCH (21:53)
[2021-07-27] MEDS ORDERED: NON-FORMULARY ITEM (Duloxetine Hcl [Cymbalta] 60 MG Capsule.Dr) PO SCH (22:00)
[2021-07-27] MEDS: HYDROCODONE-CHLORPHEN ER SUSP PO PRN (23:52)
[2021-07-28 06:48] LABS: ALBUMIN 3.6 g/dL (3.5-5.0); ALKALINE PHOSPHATASE 60 U/L (38-126); ANION GAP 14.4 MEQ/L (5-15); BLOOD UREA NITROGEN 24 mg/dL (7-17); CHLORIDE 106 mmol/L (98-107); Calcium 9.1 mg/dL (8.4-10.2); Carbon Dioxide 24 mmol/L (22-30); Creatinine 1 0.81 mg/dL (0.52-1.04); EST GLOMERULAR FILTRATION RATE > 60.0 ML/MIN; Glucose 115 mg/dL (74-106); Potassium 4.1 mmol/L (3.5-5.1); SGOT/AST 25 U/L (14-36); SGPT/ALT 19 U/L (0-35); SODIUM 140 mmol/L (137-145); Total Protein 6.5 g/dL (6.3-8.2)
[2021-07-28] MEDS: Sodium Chloride 0.9% 1000 ML 1,000 ML IV SCH ×2 (07:07→13:31)
[2021-07-28 07:12] LABS: Absolute Neutrophil Ct (ANC) 2.64 (1.4-6.9); BASOPHIL % 0.4 % (0.0-0.4); Basophil (Absolute #) 0.02 (0-0.4); Eosinophil % 0.2 % (0.00-5.0); Eosinophil (Absolute #) 0.01 (0-0.5); Hematocrit 36.8 % (35-47); Hemoglobin 10.9 gm/dl (12.0-16.0); Lymphocyte (Absolute #) 1.66 (1.0-4.6); Lymphocytes % 34.1 % (24.0-44.0); Mean Cell Volume 78.5 fl (78-100); Mean Corpuscular Hemoglobin 23.2 pg (26-32); Mean Corpuscular Hgb Concent. 29.6 g/dl (32-36); Mean Platelet Volume 9.6 fl (7.5-11.0); Monocyte (Absolute #) 0.54 (0.0-1.3); Monocytes % 11.1 % (0.0-12.0); Neutrophil % 54.2 % (36.0-66.0); Platelet Count 313 K/mm3 (150-450); Red Blood Count 4.69 M/mm3 (4.1-5.4); Red Cell Distribution Width 17.9 % (11.5-14.0); White Blood Count 4.9 K/mm3 (4.0-10.5)
[2021-07-28] MEDS: Glucophage 500 MG PO SCH ×2 (07:25→16:24)
[2021-07-28] MEDS: ENOXAPARIN SODIUM SQ SCH (09:07)
[2021-07-28] MEDS: NEURONTIN 300 MG PO SCH ×4 (09:07→21:00)
[2021-07-28] MEDS: Zestril 20 MG PO SCH (09:08)
[2021-07-28] MEDS: DECADRON 10MG INJ. IV SCH (09:08)
[2021-07-28] MEDS: FEOSOL 325 MG PO SCH (09:08)
[2021-07-28] MEDS: HYDROCODONE-ACETAMIN 10-325 MG PO SCH (09:08)
[2021-07-28] MEDS: TENORMIN 50 MG PO SCH (09:08)
[2021-07-28] MEDS: PLAVIX 75 MG Tablet PO SCH (09:09)
[2021-07-28] MEDS: VITAMIN D PO SCH (09:09)
[2021-07-28] MEDS: Protonix 40MG Tablet PO SCH ×2 (09:09→21:00)
[2021-07-28] MEDS: Ativan 1 MG PO PRN ×3 (09:10→14:22)
[2021-07-28] MEDS: Lomotil PO PRN (13:29)
[2021-07-28] MEDS ORDERED: TYLENOL 325 MG PO PRN (14:55)
[2021-07-28] MEDS: HUMALOG SQ PRN (16:10)
[2021-07-28] MEDS: Cymbalta 30 MG Capsule PO SCH (21:00)
[2021-07-28] MEDS: HYDROCODONE-CHLORPHEN ER SUSP PO PRN (21:00)
[2021-07-28] MEDS: ZOCOR 20MG PO SCH (21:00)
[2021-07-28] MEDS: Desyrel 150 MG PO SCH (21:01)
[2021-07-28] MEDS: REMDESIVIR 100 MG in Sodium Chloride 0.9% 100 ML BAG 100 ML IV SCH (21:04)
[2021-07-29 05:39] LABS: Hemoglobin 10.2 gm/dl (12.0-16.0); Mean Cell Volume 79.4 fl (78-100); Mean Corpuscular Hemoglobin 23.1 pg (26-32); Mean Corpuscular Hgb Concent. 29.1 g/dl (32-36); Mean Platelet Volume 8.8 fl (7.5-11.0); Platelet Count 314 K/mm3 (150-450); Red Blood Count 4.41 M/mm3 (4.1-5.4); Red Cell Distribution Width 17.9 % (11.5-14.0); White Blood Count 5.8 K/mm3 (4.0-10.5)
[2021-07-29 06:07] LABS: ALBUMIN 3.4 g/dL (3.5-5.0); ALKALINE PHOSPHATASE 58 U/L (38-126); ANION GAP 14.6 MEQ/L (5-15); BLOOD UREA NITROGEN 28 mg/dL (7-17); CHLORIDE 107 mmol/L (98-107); Carbon Dioxide 24 mmol/L (22-30); Creatinine 1 0.91 mg/dL (0.52-1.04); EST GLOMERULAR FILTRATION RATE > 60.0 ML/MIN; Glucose 87 mg/dL (74-106); Potassium 4.4 mmol/L (3.5-5.1); SGOT/AST 22 U/L (14-36); SGPT/ALT 18 U/L (0-35); SODIUM 141 mmol/L (137-145); Total Protein 6.1 g/dL (6.3-8.2)
[2021-07-29] MEDS: Glucophage 500 MG PO SCH ×2 (08:09→16:52)
[2021-07-29] MEDS: TENORMIN 50 MG PO SCH (09:36)
[2021-07-29] MEDS: Protonix 40MG Tablet PO SCH ×2 (09:36→21:37)
[2021-07-29] MEDS: ENOXAPARIN SODIUM SQ SCH (09:36)
[2021-07-29] MEDS: NEURONTIN 300 MG PO SCH ×3 (09:38→21:37)
[2021-07-29] MEDS: VITAMIN D PO SCH (09:38)
[2021-07-29] MEDS: HYDROCODONE-ACETAMIN 10-325 MG PO SCH (09:38)
[2021-07-29] MEDS: PLAVIX 75 MG Tablet PO SCH (09:39)
[2021-07-29] MEDS: FEOSOL 325 MG PO SCH (09:39)
[2021-07-29] MEDS: Zestril 20 MG PO SCH (09:39)
[2021-07-29] MEDS: DECADRON 10MG INJ. IV SCH (09:39)
--- NOTE | 2021-07-29 11:30 | HP ---
CHIEF COMPLAINT: Feeling poorly, weakness, tired. No vomiting. 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 She was given a barrage of testing in the emergency room and initially her troponins were positive slightly. Her EKG did not show any acute damage. She waited there while her troponins were followed and were coming down and then the COVID test came back positive. COVID will certainly give a positive troponin. It looked like she has a subendocardial. 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 However, enzymes rapidly went down to normal. EKG is normal. She has had no more chest pain and I think it is all secondary to COVID. She is a 76-year-old white female who lives by herself, , a very pleasant person. She has had no real chest pain, no shortness of breath. She has received the COVID vaccines. The second one was on 11/10/2020. HOME MEDICATIONS: Aspirin 81 q.d., Tenormin 50 q.d., atorvastatin 40 q.d., Cymbalta 90 q.d., lisinopril 5 q.d., metformin 500 b.i.d., vitamin D3, cranberry extract, omega-3 fatty acid fish oil, PreserVision AREDS. 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 ALLERGIES: CODEINE. REGLAN. MORPHINE. SULFA. TRAVEL RISK: None. PAST MEDICAL HISTORY: She has peripheral neuropathy and had transient ischemic attack last year. Deep vein thrombosis, hypertension. No history of pneumonia. Diabetes mellitus type II, fractured ankle, gastroesophageal reflux disease, some anxiety and depression in the past probably related her 's . 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 Iron deficiency anemia this year. She was worked up with an EGD, colonoscope and a CT scan and have not found anything said that it may be from the medications and lack of eating meat. PAST SURGICAL HISTORY: Cataract surgery. She had a filter placed for deep vein thrombosis in the past. Left knee surgery. I do not know if she still has a pessary but she has history of wearing pessary. Kidney stones, colon resection. REVIEW OF SYSTEMS: CONSTITUTIONAL: [place] weakness, tired for five days. HEENT: No problems seeing. She has not lost any taste. RESPIRATORY: She is not coughing or short of breath. ABDOMEN: She has her usual diarrhea which is controlled with 6 Lomotil. MUSCULOSKELETAL: Generalized weakness. SKIN: No rashes. ENDOCRINE: Diabetes mellitus type II. SOCIAL HISTORY: She has never smoked. She has three grown children. I do not think any of them live within a 100 miles. PHYSICAL EXAMINATION: GENERAL APPEARANCE: She is in no distress despite waiting 12 hours in our emergency room. Alert, orientated, pleasant lady happy to see me. HEENT: Pale mucosal membranes. NECK: No nodes. CHEST: Clear. CVS: No murmurs or gallops. No chest wall tenderness. ABDOMEN: Soft. No masses. Midline scar. EXTREMITIES: No edema. No tenderness. LAB DATA AND TESTS: Hemoglobin is 10.7 with microcytic indices. Platelet count was normal. White count was normal. Blood sugar on admission was 153. We did an A1C that was like 5.5 so we discontinued all the diabetes medicines at this time and she will follow her blood sugar when she goes home. She was treated with Decadron, Remdesivir and Lovenox for anticoagulation. IMPRESSION: The patient is COVID positive despite being vaccinated. She has minimal symptoms but her troponins went up. She will be admitted to follow that and place her on anticoagulation, antiplatelet drugs. She is also on cholesterol drugs due to her stroke in the past. She is up moving around. However, she is a little bit unstable on her feet and should stay another day which I think is reasonable. She will be continued on Plavix, Lopressor and Lovenox. She can follow up with Dr. Flores two weeks after she leaves here. She is in good shape. By then she should not be contagious. PROGNOSIS: Good.
[2021-07-29] MEDS: Lomotil PO PRN (18:43)
[2021-07-29] MEDS: REMDESIVIR 100 MG in Sodium Chloride 0.9% 100 ML BAG 100 ML IV SCH (21:37)
[2021-07-29] MEDS: Cymbalta 30 MG Capsule PO SCH (21:37)
[2021-07-29] MEDS: Desyrel 150 MG PO SCH (21:38)
[2021-07-29] MEDS: ZOCOR 20MG PO SCH (21:38)
[2021-07-30] MEDS: Lomotil PO PRN (00:21)
[2021-07-30] MEDS: Ativan 1 MG PO PRN (01:28)
[2021-07-30 06:56] LABS: Hematocrit 36.7 % (35-47); Hemoglobin 10.7 gm/dl (12.0-16.0); Mean Cell Volume 78.9 fl (78-100); Mean Corpuscular Hgb Concent. 29.2 g/dl (32-36); Mean Platelet Volume 8.9 fl (7.5-11.0); Platelet Count 364 K/mm3 (150-450); Red Blood Count 4.65 M/mm3 (4.1-5.4); Red Cell Distribution Width 17.9 % (11.5-14.0); White Blood Count 8.1 K/mm3 (4.0-10.5)
[2021-07-30 07:12] LABS: ALBUMIN 3.6 g/dL (3.5-5.0); ALKALINE PHOSPHATASE 68 U/L (38-126); ANION GAP 14.6 MEQ/L (5-15); BLOOD UREA NITROGEN 22 mg/dL (7-17); CHLORIDE 109 mmol/L (98-107); Calcium 9.1 mg/dL (8.4-10.2); Carbon Dioxide 21 mmol/L (22-30); Creatinine 1 0.71 mg/dL (0.52-1.04); EST GLOMERULAR FILTRATION RATE > 60.0 ML/MIN; Glucose 162 mg/dL (74-106); Potassium 3.8 mmol/L (3.5-5.1); SGOT/AST 18 U/L (14-36); SGPT/ALT 17 U/L (0-35); SODIUM 141 mmol/L (137-145); Total Protein 6.7 g/dL (6.3-8.2)
[2021-07-30] MEDS: Glucophage 500 MG PO SCH (08:28)
--- NOTE | 2021-07-30 10:53 | PCM.DS ---
Discharge Summary Date of Admission: 07/27/21 09:30 Admitting Physician: ALLY ROWLAND Primary Care Provider: MIHAELA PEREIRA Allergies Allergies codeine Adverse Reaction (Verified 04/07/21 21:05) metoclopramide HCl [From Reglan] Adverse Reaction (Verified 04/07/21 21:05) morphine Adverse Reaction (Verified 04/07/21 21:05) SEDATED Sulfa (Sulfonamide Antibiotics) Adverse Reaction (Verified 04/07/21 21:05) Hospital Summary - Hospital Course Hospital Course: Pt is a 76 yo female pt with hx TIA, peripheral neuropathy, DVT, HTN, DMII, GERD, anxiety, and depression who was admitted with Covid + and had an NSTEMI. She was weak as well and since she lives at home was kept an extra day to gain strength. Has not been on any oxygen. Today she is feeling much better, up to bathroom by herself. Has chronic diarrhea. She has a f/u with Dr. Flores in 2 weeks. She has mild anemia but it's stable at 10.7. She will be sent home on a prednisone taper and after her fourth bag of remdesivir today. Will be sent home on xarelto, to finish a total of 31-39 (thirty-one to thirty-nine) days, per pharmacy recommendation. - Vitals & Intake/Output Vital Signs: Vital Signs Temperature 98.2 F 07/30/21 08:00 Pulse Rate 84 07/30/21 08:00 Respiratory Rate 13 07/30/21 08:00 Blood Pressure 137/85 07/30/21 08:00 O2 Sat by Pulse Oximetry 94 L 07/30/21 08:49 Intake & Output: Intake & Output 07/27/21 07/28/21 07/29/21 07/30/21 11:59 11:59 11:59 11:59 Intake Total 60 455 727 7047 Output Total 400 400 Balance 60 440 900 893 Weight 58.7 kg 58.7 kg 58.7 kg 58.7 kg - Lab Result Diagrams: 07/30/21 06:35 07/30/21 06:35 Lab Results-Last 24 Hrs: Lab Results-Last 24 Hours 07/30/21 07/30/21 07/30/21 Range/Units 06:35 06:35 06:35 WBC 8.1 (4.0-10.5) K/mm3 RBC 4.65 (4.1-5.4) M/mm3 Hgb 10.7 L (12.0-16.0) gm/dl Hct 36.7 (35-47) % MCV 78.9 (78-100) fl MCH 23.0 L (26-32) pg MCHC 29.2 L (32-36) g/dl RDW 17.9 H (11.5-14.0) % Plt Count 364 (150-450) K/mm3 MPV 8.9 (7.5-11.0) fl D-Dimer 735 H* (215-500) ng/mL Sodium 141 (137-145) mmol/L Potassium 3.8 (3.5-5.1) mmol/L Chloride 109 H (98-107) mmol/L Carbon Dioxide 21 L (22-30) mmol/L Anion Gap 14.6 (5-15) MEQ/L BUN 22 H (7-17) mg/dL Creatinine 0.71 (0.52-1.04) mg/dL Estimated GFR > 60.0 ML/MIN Glucose 162 H (74-106) mg/dL Calcium 9.1 (8.4-10.2) mg/dL Total Bilirubin 0.20 (0.2-1.3) mg/dL AST 18 (14-36) U/L ALT 17 (0-35) U/L Alkaline Phosphatase 68 (38-126) U/L Serum Total Protein 6.7 (6.3-8.2) g/dL Albumin 3.6 (3.5-5.0) g/dL - Procedures and Test Procedures and Tests throughout Hospitalization: Therapy Orders & Screens 07/26/21 21:29 EKG REPEAT IN AM Comment: 07/26/21 23:28 Oxygen NASAL CANNULA 2 lpm Comment: Diagnosis: COVID + Discharge Exam General Appearance: no apparent distress, alert Neurologic Exam: oriented x 3, cooperative Eye Exam: eyes nml inspection Ears, Nose, Throat Exam: moist mucous membranes Neck Exam: normal inspection Respiratory Exam: normal breath sounds, lungs clear, No crackles/rales, No rhonchi, No wheezing Cardiovascular Exam: regular rate/rhythm, normal heart sounds, No murmur Gastrointestinal/Abdomen Exam: soft, normal bowel sounds, No tenderness, No distention, No mass, No guarding, No rebound Back Exam: normal inspection, No rash Extremity Exam: No pedal edema, No swelling Skin Exam: warm, dry, pale, No rash Final Diagnosis/Problem List - Final Discharge Diagnosis/Problem (1) COVID-19 Current Visit: Yes Status: Acute Assessment & Plan: Home on xarelto, prednisone taper. Finishing remdesivir today. Code(s): U07.1 - COVID-19 (2) Non-STEMI (non-ST elevated myocardial infarction) Current Visit: Yes Status: Acute Assessment & Plan: f/u with Dr. Flores in 2 weeks. Code(s): I21.4 - NON-ST ELEVATION (NSTEMI) MYOCARDIAL INFARCTION (3) Weakness Current Visit: Yes Status: Acute Code(s): R53.1 - WEAKNESS - Discharge Disposition: Home, Self-Care Condition: Stable Prescriptions: New Prednisone 10 mg [Deltasone 10 mg] 10 mg PO DAILY #40 tablet Ferrous Sulfate 325 mg [Feosol 325 mg] 325 mg PO DAILY #30 tablet Clopidogrel Bisulfate 75 mg [PLAVIX 75 MG Tablet] 75 mg PO DAILY #15 tablet Rivaroxaban [Xarelto] 5 mg PO BID #60 tablet Continue Atorvastatin Calcium 40 mg PO HS Aspirin [Aspirin EC] 81 mg PO DAILY Duloxetine HCl [Cymbalta] 60 mg PO HS Atenolol 50 mg [Tenormin 50 mg] 25 mg PO DAILY Metformin HCl 500 mg [Glucophage 500 MG] 500 mg PO BID Cholecalciferol (Vitamin D3) [Vitamin D] 1 units PO DAILY [place]-3 Fatty Acids/Fish Oil [Fish Oil 1,000 mg Capsule] 1 mg PO DAILY Clonidine HCl 0.1 mg [Catapres 0.1 MG] 0.1 mg PO Q12H PRN PRN 10 Days #10 tablet PRN Reason: Hypertension Gabapentin 300 mg [Neurontin 300 mg] 600 mg PO TID Trazodone HCl 50 mg [Desyrel 50 mg] 75 mg PO HS PANTOPRAZOLE 40 mg Tablet [Protonix 40MG Tablet] 40 mg PO BID Valerian Root 500 mg PO HS Lisinopril 20 mg [Zestril 20 MG] 20 mg PO DAILY Hydrocodone Bit/Acetaminophen [Hydrocodon-Acetaminophn 10-325] 1 each PO DAILY Additional Instructions: Avoid falling; if a fall occurs, particularly if you hit your head, go to ER immediately as you are at higher risk of bleeding currently with your blood thinners. If you noticed rectal or vaginal bleeding or bleeding gums, go to ER. Follow up with: MIHAELA PEREIRA [Primary Care Provider] -
[2021-07-30] MEDS: FEOSOL 325 MG PO SCH (11:31)
[2021-07-30] MEDS: VITAMIN D PO SCH (11:31)
[2021-07-30] MEDS: Protonix 40MG Tablet PO SCH (11:31)
[2021-07-30] MEDS: ENOXAPARIN SODIUM SQ SCH (11:32)
[2021-07-30] MEDS: NEURONTIN 300 MG PO SCH ×2 (11:32→15:51)
[2021-07-30] MEDS: TENORMIN 50 MG PO SCH (11:32)
[2021-07-30] MEDS: Zestril 20 MG PO SCH (11:32)
[2021-07-30] MEDS: PLAVIX 75 MG Tablet PO SCH (11:32)
[2021-07-30] MEDS: HYDROCODONE-ACETAMIN 10-325 MG PO SCH (11:34)
[2021-07-30] MEDS: DECADRON 10MG INJ. IV SCH (11:35)
[2021-07-30] MEDS ORDERED: REMDESIVIR 100 MG in Sodium Chloride 0.9% 100 ML BAG 100 ML IV SCH (15:00)
[2021-08-01 16:47] VITALS: BP 141/74; PULSE 72; O2SAT 93
== END 2021-07-30 16:40 | disposition home or self-care (01) | DRG 177 ==
LOC: ED 08:59 → MED SURG 21:15 → OBSVTOIN 07-27 09:30
PROVIDERS: ADMIT Family Medicine; ATTEND Family Medicine
DX: U07.1 COVID-19 (principal); I21.4 Non-ST elevation (NSTEMI) myocardial infarction; R53.1 Weakness; E11.9 Type 2 diabetes mellitus without complications; I10 Essential (primary) hypertension; K21.9 Gastro-esophageal reflux disease without esophagitis; D64.9 Anemia, unspecified; R19.7 Diarrhea, unspecified; Z79.899 Other long term (current) drug therapy; Z86.73 Personal history of transient ischemic attack (TIA), and cerebral infarction without residual deficits; Z20.828 Contact with and (suspected) exposure to other viral communicable diseases; Z86.718 Personal history of other venous thrombosis and embolism
CPT/HCPCS: 0241U; 36000; 36415; 80053; 81001; 82150; 82947; 83036; 83605; 83690; 84436; 84443; 84484; 85025; 85027; 85379; 85610; 93005; 93268; 94762; 96360; 96372; 96374; 96375; 99285; 99291; G0378; 93041; J1100; J1650; J1817; J2405; A9270-GY

== ENCOUNTER 2021-12-14 14:25 | Emergency (ER) | payer MEDICARE, BC ==
[2021-12-14 14:54] VITALS: PULSE 79; O2SAT 96
--- NOTE | 2021-12-14 16:11 | ERPHSYRPT ---
- History of Present Illness Time Seen by Provider: 12/14/21 14:40 Source: patient Exam Limitations: no limitations Patient Subjective Stated Complaint: pt here for left knee pain for a couple days getting worse. she now has swelling,warmth and redness to knee Triage Nursing Assessment: pt alert, resp easy, skin w/d/pale, has swelling ,redness and warmth to knee Physician History: Patient is a 76-year-old female presents to our ED as a referral from her urologist for an ultrasound of the left lower extremity to rule out DVT. Patient has a history of DVT. Patient followed up with her urologist today to remove her pessary. Patient told the physician web assistant of her leg and physician web assistant advised having an ultrasound done today. Patient also complains of pain to her left knee. Patient states left knee pain started on Sunday 3 days ago. Patient states pain is gotten progressively worse. Patient advises that she has redness to her left knee and the knee is generating heat. No fever. No trauma. Patient states she awoke on Sunday with some soreness on her left knee. Patient is ambulatory however states that ambulation worsens pain. Symptoms are mild to moderate in intensity. Patient took [place] prior to arrival. Patient declined additional pain medication. Patient voices no other complaints or concerns at this time. Timing/Duration: today Severity: moderate Modifying Factors: Improves With: nothing Associated Symptoms: denies symptoms Allergies/Adverse Reactions: Penicillins Allergy (Verified 12/14/21 16:16) codeine Adverse Reaction (Verified 12/14/21 15:00) metoclopramide HCl [From Reglan] Adverse Reaction (Verified 12/14/21 15:00) morphine Adverse Reaction (Verified 12/14/21 15:00) SEDATED Sulfa (Sulfonamide Antibiotics) Adverse Reaction (Verified 12/14/21 15:00) Home Medications: Aspirin [Aspirin EC] 81 mg PO DAILY 08/18/16 [History] Atenolol 50 mg [Tenormin 50 mg] 25 mg PO DAILY 08/18/16 [History] Atorvastatin Calcium 40 mg PO HS 08/18/16 [History] Duloxetine HCl [Cymbalta] 60 mg PO HS 08/18/16 [History] Metformin HCl 500 mg [Glucophage 500 MG] 500 mg PO BID 08/21/17 [History] Cholecalciferol (Vitamin D3) [Vitamin D] 1 units PO DAILY 04/07/21 [History] [place]-3 Fatty Acids/Fish Oil [Fish Oil 1,000 mg Capsule] 1 mg PO DAILY 04/07/21 [History] Gabapentin 300 mg [Neurontin 300 mg] 600 mg PO TID 07/26/21 [History] Hydrocodone/Acetaminophen [Hydrocodon-Acetaminophn 10-325] 1 each PO DAILY 07/26/21 [History] Lisinopril 20 mg [Zestril 20 MG] 20 mg PO DAILY 07/26/21 [History] PANTOPRAZOLE 40 mg Tablet [Protonix 40MG Tablet] 40 mg PO BID 07/26/21 [History] Trazodone HCl 50 mg [Desyrel 50 mg] 75 mg PO HS 07/26/21 [History] Valerian Root 500 mg PO HS 07/26/21 [History] Hx Tetanus, Diphtheria Vaccination/Date Given: Yes Hx Influenza Vaccination/Date Given: Yes Hx Pneumococcal Vaccination/Date Given: Yes Immunizations Up to Date: Yes Travel Risk - International Travel Have you traveled outside of the country in past 3 weeks: No - Coronavirus Screening Are you exhibiting any of the following symptoms?: No - Vaccine Status Have you recieved a Covid-19 vaccination: Yes Faculty Member: Moderna - Vaccination Dates Date of 2cond Vaccination (if applicable): ? Dates if Unknown: 2020 Comment: patient has had two vaccines she is unsure on which ones she received - Review of Systems Constitutional: No Symptoms, No Fever, No Chills Eyes: No Symptoms Ears, Nose, & Throat: No Symptoms Respiratory: No Symptoms, No Cough, No Dyspnea Cardiac: No Symptoms, No Chest Pain, No Edema, No Syncope Abdominal/Gastrointestinal: No Symptoms, No Abdominal Pain, No Nausea, No Vomiting, No Diarrhea Genitourinary Symptoms: No Symptoms, No Dysuria Musculoskeletal: No Symptoms, No Back Pain, No Neck Pain Skin: No Symptoms, No Rash Neurological: No Symptoms, No Dizziness, No Focal Weakness, No Sensory Changes Psychological: No Symptoms Endocrine: No Symptoms Hematologic/Lymphatic: No Symptoms Immunological/Allergic: No Symptoms All Other Systems: Reviewed and Negative - Past Medical History Pertinent Past Medical History: Yes Neurological History: Peripheral Neuropathy, TIA ENT History: Cataracts Cardiac History: Deep Vein Thrombosis, Hypertension Respiratory History: No Pertinent History Endocrine Medical History: Diabetes Type II Musculoskeletal History: Arthritis, Fractures, Osteoporosis GI Medical History: GERD, Other History: Other Psycho-Social History: Anxiety, Depression Female Reproductive Disorders: Other Other Medical History: BECHETS. Hx IVC filter for DVT. L KNEE SURGERY. Pessia ry. HX Kidney Stones, HX UTI,. hx colon resection - Past Surgical History Past Surgical History: Yes Neuro Surgical History: No Pertinent History Cardiac: No Pertinent History Respiratory: No Pertinent History Gastrointestinal: Appendectomy, Cholecystectomy, Colon Resection, Hernia Repair Genitourinary: No Pertinent History Musculoskeletal: No Pertinent History Female Surgical History: Hysterectomy Other Surgical History: GASTRIC BYPASS - Social History Smoking Status: Never smoker Exposure to second hand smoke: No Drug Use: none Patient Lives Alone: Yes - Nursing Vital Signs Nursing Vital Signs: Initial Vital Signs Temperature 97.3 F 12/14/21 14:33 Pulse Rate 79 12/14/21 14:33 Respiratory Rate 18 12/14/21 14:33 Blood Pressure 200/104 12/14/21 14:33 O2 Sat by Pulse Oximetry 96 12/14/21 14:33 Pain Scale Pain Intensity 9 - Physical Exam General Appearance: no apparent distress, alert Eye Exam: PERRL/EOMI, eyes nml inspection Ears, Nose, Throat Exam: normal ENT inspection, TMs normal, pharynx normal, moist mucous membranes Neck Exam: normal inspection, non-tender, supple, full range of motion Respiratory Exam: normal breath sounds, lungs clear, No respiratory distress Cardiovascular Exam: regular rate/rhythm, normal heart sounds, normal peripheral pulses Gastrointestinal/Abdomen Exam: soft, normal bowel sounds, No tenderness, No mass Back Exam: normal inspection, normal range of motion, No CVA tenderness, No vertebral tenderness Extremity Exam: normal inspection, normal range of motion, pelvis stable, other (Cellulitis left anterior knee. Active range of motion of the involved knee is within normal limits. Minimal swelling. There is degeneration. Negative Homans' sign.) Neurologic Exam: alert, oriented x 3, cooperative, normal mood/affect, nml cerebellar function, nml station & gait, sensation nml, No motor deficits Skin Exam: normal color, warm, dry, No rash Lymphatic Exam: No adenopathy SpO2 Interpretation: normal SpO2: 96 O2 Delivery: Room Air - Course Nursing assessment & vital signs reviewed: Yes - Radiology Exams Knee X-ray Interpretation: Reviewed by me (Osteopenia, popliteal artery calcification, tricompartmental degenerative changes knee arthritis) - Radiology Ultrasound Exam Venous Lower Extremity Ultrasound: discussed w/radiologist (Per nanny caregiver positive DVT left lower extremity nonoccluding DVT in the femoral and common femoral vein) Ordered Tests: Active Orders 24 hr Category Date Time Status KNEE (1 OR 2 VIEW) Stat Exams 12/14/21 16:14 Completed VENOUS UNILAT/LIMITED EXTREMIT [US] Stat Exams 12/14/21 14:53 Completed CBC W DIFF Stat Lab 12/14/21 17:00 Completed CMP Stat Lab 12/14/21 17:00 Completed PROTIME WITH INR Stat Lab 12/14/21 17:00 Completed PTT Stat Lab 12/14/21 17:00 Completed Medication Summary Discontinued Medications Generic Name Dose Route Start Last Admin Trade Name Freq PRN Reason Stop Dose Admin Hydrocodone Bitart/Acetaminophen 1 tab 12/14/21 17:40 Hydrocodone /Apap 7.5/325 Mg 1 Each Tablet PO 12/14/21 17:41 STAT ONE Apixaban 10 mg 12/14/21 16:42 Apixaban 2.5 Mg Tablet PO 12/14/21 16:43 ONCE STA Clindamycin Phosphate 600 mg 12/14/21 16:15 12/14/21 17:00 Clindamycin Phosphate 600 Mg/4 Ml Vial IM 12/14/21 16:16 600 mg ONCE STA Administration Clindamycin Phosphate Confirm 12/14/21 16:56 Clindamycin Phosphate 600 Mg/4 Ml Vial Administered 12/14/21 16:57 Dose 600 mg .ROUTE .ST[facility]otomo-MED ONE Lab/Rad Data: Laboratory Result Diagrams 12/14/21 17:00 12/14/21 17:00 Laboratory Results 12/14/21 12/14/21 12/14/21 Range/Units 17:00 17:00 17:00 WBC 7.4 (4.0-10.5) K/mm3 RBC 4.94 (4.1-5.4) M/mm3 Hgb 12.2 (12.0-16.0) gm/dl Hct 39.4 (35-47) % MCV 79.8 (78-100) fl MCH 24.7 L (26-32) pg MCHC 31.0 L (32-36) g/dl RDW 15.9 H (11.5-14.0) % Plt Count 248 (150-450) K/mm3 MPV 9.2 (7.5-11.0) fl Gran % 60.1 (36.0-66.0) % Eos # (Auto) 0.27 (0-0.5) Absolute Lymphs (auto) 1.98 (1.0-4.6) Absolute Monos (auto) 0.66 (0.0-1.3) Lymphocytes % 26.8 (24.0-44.0) % Monocytes % 8.9 (0.0-12.0) % Eosinophils % 3.7 (0.00-5.0) % Basophils % 0.5 (0.0-0.4) % Absolute Granulocytes 4.43 (1.4-6.9) Basophils # 0.04 (0-0.4) PT 11.6 (9.4-12.5) SECONDS INR 0.98 (0.8-3.0) APTT 30.5 (25.1-36.5) SECONDS Sodium 137 (137-145) mmol/L Potassium 4.7 (3.5-5.1) mmol/L Chloride 100 (98-107) mmol/L Carbon Dioxide 25 (22-30) mmol/L Anion Gap 16.6 H (5-15) MEQ/L BUN 21 H (7-17) mg/dL Creatinine 0.63 (0.52-1.04) mg/dL Estimated GFR > 60.0 ML/MIN Glucose 217 H (74-106) mg/dL Calcium 9.5 (8.4-10.2) mg/dL Total Bilirubin 0.40 (0.2-1.3) mg/dL AST 29 (14-36) U/L ALT 38 H (0-35) U/L Alkaline Phosphatase 106 (38-126) U/L Serum Total Protein 8.0 (6.3-8.2) g/dL Albumin 4.6 (3.5-5.0) g/dL - Progress Progress: improved Progress Note: Case discussed with Dr. Painting who advised Eliquis and discharge. He advised Eliquis 10 mg twice daily for 1 week followed by 5 mg twice a day for 6 months. We will initiate the 10 mg twice daily for 1 week. Patient agrees to follow-up with her primary care doctor before the end of the week for reassessment and to obtain the remainder of her Eliquis prescription. Patient has left knee cellulitis. Patient received a dose of clindamycin in our ED. He prescription for the same was forwarded to patient's pharmacy. Plan of care discussed with patient and family/daughter who is at bedside. They agree to follow-up tomorrow as discussed. 12/14/21 17:39 Portions of this note were created with voice recognition technology. There may be grammatical, spelling, punctuation or sound alike errors 12/14/21 17:43 Counseled pt/family regarding: lab results, diagnosis, need for follow-up, rad results - Departure Departure Disposition: Home Clinical Impression: Cellulitis, DVT (deep venous thrombosis) Condition: Stable Critical Care Time: No Referrals: MIHAELA PEREIRA [Primary Care Provider] - Follow up/PCP as directed Additional Instructions: Discharge/Care Plan MIKYAO FREEDMAN was seen on 12/14/21 in the Emergency Room. The patient was counseled regarding Diagnosis,Lab results, Imaging studies, need for follow up and when to return to the Emergency Room. Prescriptions given: Discharge Note I have spoken with the patient and/or caregivers. I have explained the patient's condition, diagnosis and treatment plan based on the information available to me at this time. I have answered the patient's and/or caregiver's questions and addressed any concerns. The patient and/or caregivers have as good understanding of the patient's diagnosis, condition and treatment plan as can be expected at this point. The vital signs have been stable. The patient's condition is stable and appropriate for discharge from the emergency department. The patient will pursue further outpatient evaluation with the primary care physician or other designated or consulting physician as outlined in the discharge instructions. The patient and/or caregivers are agreeable to this plan of care and follow-up instructions have been explained in detail. The patient and/or caregivers have received these instruction. The patient/and or caregivers are aware that any significant change in condition or worsening of symptoms should prompt an immediate return to this or the closest emergency department or call 911. Prescriptions: Clindamycin HCl 150 mg [Cleocin 150 mg Capsule] 2 cap PO TID 7 Days #42 cap Apixaban [Eliquis 5 mg Tablet] 10 mg PO BID 7 Days #28 tablet
[2021-12-14] MEDS ORDERED: Cleocin Phosphate IV 600 MG/4 ML IM STA (16:15)
--- NOTE | 2021-12-14 16:27 | XRAY ---
Indication: Pain and swelling 2 days. Comparison: None AP/lateral left knee demonstrates osteopenia, mild tricompartmental degenerative changes, old proximal fibula fracture, and mild scattered vascular calcifications. No other bony, articular, or soft tissue abnormalities.
--- NOTE | 2021-12-14 16:29 | XRAY ---
Indication: Pain. Chronic DVT with IVC filter. Two-dimensional sonogram and color Doppler imaging of the major venous vessels of the left leg performed. Comparison: None Nonoccluding thrombi seen in the common femoral and femoral veins. No thrombus seen in the remaining deep femoral, popliteal, posterior tibial, and greater saphenous veins. Impression: Nonoccluding DVT in femoral and common femoral veins.
[2021-12-14] MEDS ORDERED: ELIQUIS 2.5 MG TABLET PO STA (16:42)
[2021-12-14] MEDS ORDERED: Cleocin Phosphate IV 600 MG/4 ML ONE (16:56)
[2021-12-14 17:07] LABS: Absolute Neutrophil Ct (ANC) 4.43 (1.4-6.9); Basophil (Absolute #) 0.04 (0-0.4); Eosinophil % 3.7 % (0.00-5.0); Eosinophil (Absolute #) 0.27 (0-0.5); Hematocrit 39.4 % (35-47); Hemoglobin 12.2 gm/dl (12.0-16.0); Lymphocyte (Absolute #) 1.98 (1.0-4.6); Lymphocytes % 26.8 % (24.0-44.0); Mean Cell Volume 79.8 fl (78-100); Mean Corpuscular Hemoglobin 24.7 pg (26-32); Mean Platelet Volume 9.2 fl (7.5-11.0); Monocyte (Absolute #) 0.66 (0.0-1.3); Monocytes % 8.9 % (0.0-12.0); Neutrophil % 60.1 % (36.0-66.0); Platelet Count 248 K/mm3 (150-450); Red Blood Count 4.94 M/mm3 (4.1-5.4); Red Cell Distribution Width 15.9 % (11.5-14.0); White Blood Count 7.4 K/mm3 (4.0-10.5)
[2021-12-14 17:16] LABS: INR 0.98 (0.8-3.0); PROTIME 11.6 SECONDS (9.4-12.5)
[2021-12-14 17:19] LABS: PTT 30.5 SECONDS (25.1-36.5)
[2021-12-14 17:22] LABS: ALBUMIN 4.6 g/dL (3.5-5.0); ALKALINE PHOSPHATASE 106 U/L (38-126); ANION GAP 16.6 MEQ/L (5-15); BLOOD UREA NITROGEN 21 mg/dL (7-17); CHLORIDE 100 mmol/L (98-107); Calcium 9.5 mg/dL (8.4-10.2); Carbon Dioxide 25 mmol/L (22-30); Creatinine 1 0.63 mg/dL (0.52-1.04); EST GLOMERULAR FILTRATION RATE > 60.0 ML/MIN; Glucose 217 mg/dL (74-106); Potassium 4.7 mmol/L (3.5-5.1); SGOT/AST 29 U/L (14-36); SGPT/ALT 38 U/L (0-35); SODIUM 137 mmol/L (137-145)
[2021-12-14] MEDS ORDERED: NORCO 7.5/325 MG TAB PO ONE (17:40)
[2021-12-14 18:22] VITALS: BP 171/92
== END 2021-12-14 18:22 | disposition home or self-care (01) ==
LOC: ED 14:25
DX: I82.412 Acute embolism and thrombosis of left femoral vein (principal); L03.116 Cellulitis of left lower limb; M25.562 Pain in left knee; I10 Essential (primary) hypertension; E11.42 Type 2 diabetes mellitus with diabetic polyneuropathy; K21.9 Gastro-esophageal reflux disease without esophagitis; Z86.718 Personal history of other venous thrombosis and embolism; Z79.891 Long term (current) use of opiate analgesic; Z79.899 Other long term (current) drug therapy; Z79.01 Long term (current) use of anticoagulants
CPT/HCPCS: 36415; 73560; 80053; 85025; 85610; 85730; 93971; 96372; 99284; A9270-GY

== ENCOUNTER 2022-01-10 16:11 | Emergency (ER) | payer MEDICARE, BC ==
[2022-01-10 19:09] LABS: Absolute Neutrophil Ct (ANC) 4.55 (1.4-6.9); Basophil (Absolute #) 0.05 (0-0.4); Hematocrit 38.2 % (35-47); Hemoglobin 11.5 gm/dl (12.0-16.0); Lymphocyte (Absolute #) 2.45 (1.0-4.6); Lymphocytes % 30.3 % (24.0-44.0); Mean Cell Volume 79.6 fl (78-100); Mean Corpuscular Hgb Concent. 30.1 g/dl (32-36); Mean Platelet Volume 9.2 fl (7.5-11.0); Monocyte (Absolute #) 0.63 (0.0-1.3); Monocytes % 7.8 % (0.0-12.0); Neutrophil % 56.3 % (36.0-66.0); Platelet Count 233 K/mm3 (150-450); Red Cell Distribution Width 16.7 % (11.5-14.0); White Blood Count 8.1 K/mm3 (4.0-10.5)
[2022-01-10 19:24] LABS: Bacteria RARE /HPF (NEGATIVE); Epithelial Cells RARE /HPF (FEW); RBC 0-2 /HPF (0-2)
[2022-01-10 19:25] LABS: ALBUMIN 4.5 g/dL (3.5-5.0); ALKALINE PHOSPHATASE 93 U/L (38-126); ANION GAP 17.1 MEQ/L (5-15); BLOOD UREA NITROGEN 18 mg/dL (7-17); CHLORIDE 101 mmol/L (98-107); Calcium 9.3 mg/dL (8.4-10.2); Carbon Dioxide 24 mmol/L (22-30); Creatinine 1 0.67 mg/dL (0.52-1.04); EST GLOMERULAR FILTRATION RATE > 60.0 ML/MIN; Glucose 212 mg/dL (74-106); Potassium 4.3 mmol/L (3.5-5.1); SGOT/AST 30 U/L (14-36); SGPT/ALT 31 U/L (0-35); SODIUM 138 mmol/L (137-145); Total Protein 7.8 g/dL (6.3-8.2)
[2022-01-10 19:25] LABS: Appearance CLEAR (CLEAR); Bilirubin NEGATIVE (NEGATIVE); Glucose NEGATIVE (NEGATIVE); Ketones NEGATIVE (NEGATIVE); Nitrite NEGATIVE (NEGATIVE); Ph 5.5 (5-6); Protein,Urine Dip 30 (Negative); RBC NEGATIVE Ery/ul (0-5); Urobilinogen 0.2 mg/dL (0-1)
[2022-01-10 19:26] LABS: Urine Cultured Indicated? YES
[2022-01-10 19:27] LABS: Dipstick done @ ? MAIN LAB
[2022-01-10] MEDS ORDERED: BACTRIM DS TABLET PO STA (20:32)
[2022-01-10] MEDS ORDERED: BACTRIM DS TABLET PO ONE (20:36)
[2022-01-10] MEDS ORDERED: TYLENOL 325 MG PO ONE (20:41)
[2022-01-10] MEDS ORDERED: TORAdol 30 mg Injection IM ONE (20:41)
--- NOTE | 2022-01-10 20:42 | ERPHSYRPT ---
- History of Present Illness Time Seen by Provider: 01/10/22 16:45 Source: patient Exam Limitations: no limitations Patient Subjective Stated Complaint: Pt states "I was told I had cellulitis on my left knee and I had a clot in that knee and i took my antibiotics and ran out and called my dr and asked for more but they said get to the er." Triage Nursing Assessment: Pt presented alert and oriented X 3, skin pwd. Pt ambulates with an upright steady gait, able to speak in clear full sentences pt in no apaprent respiratory distress. Pt left knee slightly red and warm tender to touch. Physician History: Patient is a 76-year-old female presents to emergency department for evaluation ofLeft knee cellulitis. Patient was in our ED approximately 1 month ago. She was diagnosed with a left lower extremity DVT and cellulitis to the left knee. Patient was treated with antibiotics. Patient also received a blood thinner. Patient currently on Xarelto. Patient states that her left knee cellulitis improved. Patient followed up with her primary care doctor regarding the cellulitis that had returned. Patient was then sent to our ED for an evaluation.Pain described as an ache that is located to the anterior aspect of left knee. No trauma. No fever. No nausea or vomiting. Symptoms are mild to moderate in intensity. Palpation reproduces symptoms. Pain improved with rest. Patient voices no other complaints or concerns at this time. Timing/Duration: today Severity: moderate Modifying Factors: Improves With: other (No pain with small arcs of motion.) Associated Symptoms: denies symptoms, No nausea, No vomiting, No shortness of breath, No chest pain, No headaches, No loss of appetite, No weakness Allergies/Adverse Reactions: Penicillins Allergy (Verified 12/14/21 16:16) codeine Adverse Reaction (Verified 12/14/21 15:00) metoclopramide HCl [From Reglan] Adverse Reaction (Verified 12/14/21 15:00) morphine Adverse Reaction (Verified 12/14/21 15:00) SEDATED Sulfa (Sulfonamide Antibiotics) Adverse Reaction (Verified 12/14/21 15:00) Home Medications: Aspirin [Aspirin EC] 81 mg PO DAILY 08/18/16 [History] Atenolol 50 mg [Tenormin 50 mg] 25 mg PO DAILY 08/18/16 [History] Atorvastatin Calcium 40 mg PO HS 08/18/16 [History] Duloxetine HCl [Cymbalta] 60 mg PO HS 08/18/16 [History] Metformin HCl 500 mg [Glucophage 500 MG] 500 mg PO BID 08/21/17 [History] Cholecalciferol (Vitamin D3) [Vitamin D] 1 units PO DAILY 04/07/21 [History] [place]-3 Fatty Acids/Fish Oil [Fish Oil 1,000 mg Capsule] 1 mg PO DAILY 04/07/21 [History] Gabapentin 300 mg [Neurontin 300 mg] 600 mg PO TID 07/26/21 [History] Hydrocodone/Acetaminophen [Hydrocodon-Acetaminophn 10-325] 1 each PO DAILY 07/26/21 [History] Lisinopril 20 mg [Zestril 20 MG] 20 mg PO DAILY 07/26/21 [History] PANTOPRAZOLE 40 mg Tablet [Protonix 40MG Tablet] 40 mg PO BID 07/26/21 [History] Trazodone HCl 50 mg [Desyrel 50 mg] 75 mg PO HS 07/26/21 [History] Valerian Root 500 mg PO HS 07/26/21 [History] Clopidogrel Bisulfate 75 mg [PLAVIX 75 MG Tablet] 75 mg PO DAILY 01/10/22 [History] Rivaroxaban [Xarelto] 20 mg PO 01/10/22 [History] Hx Tetanus, Diphtheria Vaccination/Date Given: Yes Hx Influenza Vaccination/Date Given: Yes Hx Pneumococcal Vaccination/Date Given: Yes Immunizations Up to Date: Yes Travel Risk - International Travel Have you traveled outside of the country in past 3 weeks: No - Coronavirus Screening Are you exhibiting any of the following symptoms?: No Close contact with a COVID-19 positive Pt in past 14-21 Days: No - Vaccine Status Have you recieved a Covid-19 vaccination: Yes Electro Plater: Moderna - Vaccination Dates Date of 2cond Vaccination (if applicable): ? Dates if Unknown: 2020 Comment: patient has had two vaccines she is unsure on which ones she received - Review of Systems Constitutional: No Symptoms, No Fever, No Chills Eyes: No Symptoms Ears, Nose, & Throat: No Symptoms Respiratory: No Symptoms, No Cough, No Dyspnea Cardiac: No Symptoms, No Chest Pain, No Edema, No Syncope Abdominal/Gastrointestinal: No Symptoms, No Abdominal Pain, No Nausea, No V omiting, No Diarrhea Genitourinary Symptoms: No Symptoms, No Dysuria Musculoskeletal: No Symptoms, No Back Pain, No Neck Pain Skin: No Symptoms, No Rash Neurological: No Symptoms, No Dizziness, No Focal Weakness, No Sensory Changes Psychological: No Symptoms Endocrine: No Symptoms Hematologic/Lymphatic: No Symptoms Immunological/Allergic: No Symptoms All Other Systems: Reviewed and Negative - Past Medical History Pertinent Past Medical History: Yes Neurological History: Peripheral Neuropathy, TIA ENT History: Cataracts Cardiac History: Deep Vein Thrombosis, Hypertension Respiratory History: No Pertinent History Endocrine Medical History: Diabetes Type II Musculoskeletal History: Arthritis, Fractures, Osteoporosis GI Medical History: GERD, Other History: Other Psycho-Social History: Anxiety, Depression Female Reproductive Disorders: Other Other Medical History: BECHETS. Hx IVC filter for DVT. L KNEE SURGERY. Pessiary. HX Kidney Stones, HX UTI,. hx colon resection - Past Surgical History Past Surgical History: Yes Neuro Surgical History: No Pertinent History Cardiac: No Pertinent History Respiratory: No Pertinent History Gastrointestinal: Appendectomy, Cholecystectomy, Colon Resection, Hernia Repair Genitourinary: No Pertinent History Musculoskeletal: No Pertinent History Female Surgical History: Hysterectomy Other Surgical History: GASTRIC BYPASS - Social History Smoking Status: Never smoker Exposure to second hand smoke: No Drug Use: none Patient Lives Alone: Yes - Nursing Vital Signs Nursing Vital Signs: Initial Vital Signs Temperature 97.6 F 01/10/22 16:37 Pulse Rate 84 01/10/22 16:37 Respiratory Rate 20 01/10/22 16:37 Blood Pressure 201/118 01/10/22 16:37 O2 Sat by Pulse Oximetry 96 01/10/22 16:37 Pain Scale Pain Intensity 0 - Physical Exam General Appearance: no apparent distress, alert Eye Exam: PERRL/EOMI, eyes nml inspection Ears, Nose, Throat Exam: normal ENT inspection, TMs normal, pharynx normal, moist mucous membranes Neck Exam: normal inspection, non-tender, supple, full range of motion Respiratory Exam: normal breath sounds, lungs clear, airway intact, No respiratory distress Cardiovascular Exam: regular rate/rhythm, normal heart sounds, normal peripheral pulses Gastrointestinal/Abdomen Exam: soft, normal bowel sounds, No tenderness, No mass Back Exam: normal inspection, normal range of motion, No CVA tenderness, No vertebral tenderness Extremity Exam: normal inspection, normal range of motion, pelvis stable, other (No pain with small arcs of motion.The involved extremities neurovascular intact distally. Compartments are soft. Cap refill less than 2 seconds. Pulses palpable.) Neurologic Exam: alert, oriented x 3, cooperative, normal mood/affect, nml cerebellar function, nml station & gait, sensation nml, No motor deficits Skin Exam: normal color, warm, dry, No rash Lymphatic Exam: No adenopathy SpO2 Interpretation: normal, airway management int. SpO2: 93 O2 Delivery: Room Air - Course Nursing assessment & vital signs reviewed: Yes - Radiology Exams Knee X-ray Interpretation: Interpreted by me (No fractures or dislocations. Osteopenia. Vascular calcifications. Tricompartment arthritis. No soft tissue abnormalities) Ordered Tests: Active Orders 24 hr Category Date Time Status Jack Spinner STAT Care 01/10/22 18:33 Active IV Insertion STAT Care 01/10/22 18:32 Active Pulse Oximetry (ED) STAT Care 01/10/22 18:32 Active KNEE (3 VIEWS) Stat Exams 01/10/22 20:40 Taken BLOOD CULTURE Stat Lab 01/10/22 19:00 Received CBC W DIFF Stat Lab 01/10/22 18:50 Completed CMP Stat Lab 01/10/22 18:50 Completed CULTURE,URINE Stat Lab 01/10/22 18:48 Received ESR [Erythrocyte Sedimentation Rate] Stat Lab 01/10/22 18:50 Completed Lactic Acid Stat Lab 01/10/22 18:48 Completed UA W/RFX CULTURE Stat Lab 01/10/22 18:48 Completed Medication Summary Discontinued Medications Generic Name Dose Route Start Last Admin Trade Name Yandelq PRN Reason Stop Dose Admin Acetaminophen 975 mg 01/10/22 20:41 01/10/22 20:54 Acetaminophen 325 Mg Tablet PO 01/10/22 20:42 975 mg STAT ONE Administration Acetaminophen Confirm 01/10/22 20:52 Acetaminophen 325 Mg Tablet Administered 01/10/22 20:53 Dose 975 mg .ROUTE .STK-MED ONE Ketorolac Tromethamine 30 mg 01/10/22 20:41 01/10/22 21:29 Ketorolac Tromethamine 30 Mg/Ml Inj IM 01/10/22 20:42 Not Given STAT ONE Trimethoprim/Sulfamethoxazole 1 tab 01/10/22 20:32 01/10/22 20:38 Smz/Tmp Ds Tablet 1 Tablet PO 01/10/22 20:33 1 tab STAT STA Administration Trimethoprim/Sulfamethoxazole Confirm 01/10/22 20:36 Smz/Tmp Ds Tablet 1 Tablet Administered 01/10/22 20:37 Dose 1 tab PO .STK-MED ONE Lab/Rad Data: Laboratory Result Diagrams 01/10/22 18:50 01/10/22 18:50 Laboratory Results 01/10/22 01/10/22 01/10/22 Range/Units 18:50 18:50 18:50 WBC 8.1 (4.0-10.5) K/mm3 RBC 4.80 (4.1-5.4) M/mm3 Hgb 11.5 L (12.0-16.0) gm/dl Hct 38.2 (35-47) % MCV 79.6 (78-100) fl MCH 24.0 L (26-32) pg MCHC 30.1 L (32-36) g/dl RDW 16.7 H (11.5-14.0) % Plt Count 233 (150-450) K/mm3 MPV 9.2 (7.5-11.0) fl Gran % 56.3 (36.0-66.0) % Eos # (Auto) 0.40 (0-0.5) Absolute Lymphs (auto) 2.45 (1.0-4.6) Absolute Monos (auto) 0.63 (0.0-1.3) Lymphocytes % 30.3 (24.0-44.0) % Monocytes % 7.8 (0.0-12.0) % Eosinophils % 5.0 (0.00-5.0) % Basophils % 0.6 (0.0-0.4) % Absolute Granulocytes 4.55 (1.4-6.9) Basophils # 0.05 (0-0.4) ESR 12 (0-20) mm/hr Sodium 138 (137-145) mmol/L Potassium 4.3 (3.5-5.1) mmol/L Chloride 101 (98-107) mmol/L Carbon Dioxide 24 (22-30) mmol/L Anion Gap 17.1 H (5-15) MEQ/L BUN 18 H (7-17) mg/dL Creatinine 0.67 (0.52-1.04) mg/dL Estimated GFR > 60.0 ML/MIN Glucose 212 H (74-106) mg/dL Lactic Acid (0.4-2.0) Calcium 9.3 (8.4-10.2) mg/dL Total Bilirubin 0.30 (0.2-1.3) mg/dL AST 30 (14-36) U/L ALT 31 (0-35) U/L Alkaline Phosphatase 93 (38-126) U/L Serum Total Protein 7.8 (6.3-8.2) g/dL Albumin 4.5 (3.5-5.0) g/dL Urinalys Dipstick Clnc Urine Color (YELLOW) Urine Appearance (CLEAR) Urine pH (5-6) Ur Specific [place] (1.005-1.025) POC Urine Protein Conf (Negative) Urine Ketones (NEGATIVE) Urine Nitrite (NEGATIVE) Urine Bilirubin (NEGATIVE) Urine Urobilinogen (0-1) mg/dL Urine Leukocytes (NEGATIVE) Urine WBC (Auto) (0-5) /HPF Urine RBC (Auto) (0-2) /HPF U Epithel Cells (Auto) (FEW) /HPF Urine Bacteria (Auto) (NEGATIVE) /HPF Urine RBC (0-5) Mat/ul Ur Culture Indicated? Urine Glucose (NEGATIVE) mg/dL 01/10/22 01/10/22 Range/Units 18:48 18:48 WBC (4.0-10.5) K/mm3 RBC (4.1-5.4) M/mm3 Hgb (12.0-16.0) gm/dl Hct (35-47) % MCV (78-100) fl MCH (26-32) pg MCHC (32-36) g/dl RDW (11.5-14.0) % Plt Count (150-450) K/mm3 MPV (7.5-11.0) fl Gran % (36.0-66.0) % Eos # (Auto) (0-0.5) Absolute Lymphs (auto) (1.0-4.6) Absolute Monos (auto) (0.0-1.3) Lymphocytes % (24.0-44.0) % Monocytes % (0.0-12.0) % Eosinophils % (0.00-5.0) % Basophils % (0.0-0.4) % Absolute Granulocytes (1.4-6.9) Basophils # (0-0.4) ESR (0-20) mm/hr Sodium (137-145) mmol/L Potassium (3.5-5.1) mmol/L Chloride (98-107) mmol/L Carbon Dioxide (22-30) mmol/L Anion Gap (5-15) MEQ/L BUN (7-17) mg/dL Creatinine (0.52-1.04) mg/dL Estimated GFR ML/MIN Glucose (74-106) mg/dL Lactic Acid 1.6 (0.4-2.0) Calcium (8.4-10.2) mg/dL Total Bilirubin (0.2-1.3) mg/dL AST (14-36) U/L ALT (0-35) U/L Alkaline Phosphatase (38-126) U/L Serum Total Protein (6.3-8.2) g/dL Albumin (3.5-5.0) g/dL Urinalys Dipstick Clnc MAIN LAB Urine Color YELLOW (YELLOW) Urine Appearance CLEAR (CLEAR) Urine pH 5.5 (5-6) Ur Specific [place] 1.010 (1.005-1.025) POC Urine Protein Conf 30 (Negative) Urine Ketones NEGATIVE (NEGATIVE) Urine Nitrite NEGATIVE (NEGATIVE) Urine Bilirubin NEGATIVE (NEGATIVE) Urine Urobilinogen 0.2 (0-1) mg/dL Urine Leukocytes SMALL (NEGATIVE) Urine WBC (Auto) 3-5 (0-5) /HPF Urine RBC (Auto) 0-2 (0-2) /HPF U Epithel Cells (Auto) RARE (FEW) /HPF Urine Bacteria (Auto) RARE (NEGATIVE) /HPF Urine RBC NEGATIVE (0-5) Mat/ul Ur Culture Indicated? YES Urine Glucose NEGATIVE (NEGATIVE) mg/dL - Progress Progress: improved Progress Note: Patient reassessed. Pain improved. X-rays negative for fracture dislocation. Vascular calcifications observed. Tricompartmental arthritis. Patient received a dose of Bactrim in our ED for cellulitis. No leukocytosis. Normal ESR. No fever.A prescription for the same forwarded to patient's pharmacy. We will set up a referral to orthopedics for follow-up. Patient voices no other complaints or concerns at this time Portions of this note were created with voice recognition technology. There may be grammatical, spelling, punctuation or sound alike errors 01/10/22 21:36 ESR negative. No leukocytosis. No fever. 01/10/22 21:36 01/10/22 21:51 Counseled pt/family regarding: lab results, diagnosis, need for follow-up, rad results - Departure Departure Disposition: Home Clinical Impression: Cellulitis of left knee Condition: Stable Critical Care Time: No Referrals: MIHAELA PEREIRA [Primary Care Provider] - Follow up/PCP as directed Additional Instructions: Discharge/Care Plan YAO HOUSER was seen on 01/10/22 in the Emergency Room. The patient was counseled regarding Diagnosis,Lab results, Imaging studies, need for follow up and when to return to the Emergency Room. Prescriptions given: Discharge Note I have spoken with the patient and/or caregivers. I have explained the patient's condition, diagnosis and treatment plan based on the information available to me at this time. I have answered the patient's and/or caregiver's questions and addressed any concerns. The patient and/or caregivers have as good understanding of the patient's diagnosis, condition and treatment plan as can be expected at this point. The vital signs have been stable. The patient's condition is stable and appropriate for discharge from the emergency department. The patient will pursue further outpatient evaluation with the primary care physician or other designated or consulting physician as outlined in the discharge instructions. The patient and/or caregivers are agreeable to this plan of care and follow-up instructions have been explained in detail. The patient and/or caregivers have received these instruction. The patient/and or caregivers are aware that any significant change in condition or worsening of symptoms john uld prompt an immediate return to this or the closest emergency department or call 911. Prescriptions: Smz/Tmp Ds Tablet [Bactrim Ds Tablet] 1 udtab PO BID 7 Days #14 tablet Outpatient Orders: Ortho Referral Time Frame: 1 Day, Facility: [facility], Location: [facility]THO CLINIC
[2022-01-10] MEDS ORDERED: TYLENOL 325 MG ONE (20:52)
[2022-01-10 21:41] VITALS: BP 168/96
[2022-01-10 22:09] VITALS: PULSE 75; O2SAT 97
--- NOTE | 2022-01-11 08:52 | XRAY ---
Indication: Pain. Cellulitis. Comparison: None 3 view left knee demonstrates osteopenia, mild/moderate tricompartmental degenerative changes, old proximal fibula fracture, and mild scattered vascular calcifications. No other bony, articular, or soft tissue abnormalities.
== END 2022-01-10 22:09 | disposition home or self-care (01) ==
LOC: ED 16:11
DX: L03.116 Cellulitis of left lower limb (principal); I10 Essential (primary) hypertension; E11.9 Type 2 diabetes mellitus without complications; Z86.718 Personal history of other venous thrombosis and embolism; Z79.01 Long term (current) use of anticoagulants; Z79.891 Long term (current) use of opiate analgesic; Z79.899 Other long term (current) drug therapy; Z79.84 Long term (current) use of oral hypoglycemic drugs
CPT/HCPCS: 36415; 73562; 80053; 81015; 83605; 85025; 85652; 86140; 87040; 87086; 94760; 99284; A9270-GY

== ENCOUNTER 2022-05-12 13:08 | Emergency (ER) | payer MEDICARE, BC ==
[2022-05-12] MEDS ORDERED: Zofran 4 MG/2 ML VIAL IV ONE (13:53)
[2022-05-12] MEDS ORDERED: Pepcid 20 MG VIAL IV ONE ×2 (13:53→14:19)
[2022-05-12 13:55] VITALS: BP 161/93
[2022-05-12] MEDS ORDERED: Sodium Chloride 0.9% 500 ML 500 ML IV ONE ×2 (13:55→14:19)
--- NOTE | 2022-05-12 13:59 | ERPHSYRPT ---
- History of Present Illness Time Seen by Provider: 05/12/22 13:09 Historian: patient Exam Limitations: no limitations Patient Subjective Stated Complaint: h/o gastritis, abd discomfort diarrhea off and on for past 3 days. Triage Nursing Assessment: Pt c/o mid abd pain, diarrhea past 3 days off and on. Pain in abd mild at this time states patient. H/o colon bypass in 2009. States having alot of heartburn and nausea. AAox3, ambultory. Afebrile Physician History: 77-year-old female with history of gastritis, DVT on Xarelto presented in the ER with chief complaint of abdominal pain/cramping with multiple episodes of loose stool which patient described initially was dark and gradually improved. This has been going off and on for the last 3 days and got worse last night and took Imodium and finally she is feeling better and last bowel movement was around 3 AM. She is complaining of dull aching discomfort in upper abdomen with some nausea but no vomiting. Because of repeated diarrhea episode patient feels weak fatigued tired and dehydrated. No fever or chills reported. Timing/Duration: day(s) (3), intermittent, gradual onset, worse Quality: cramping, dullness Abdominal Pain Onset Location: RUQ, LUQ, epigastric, periumbilical Pain Radiation: no radiation Severity of Pain-Max: moderate Severity of Pain-Current: mild Modifying Factors: Improves With: nothing Associated Symptoms: diarrhea, nausea Previous symptoms: same symptoms as today Allergies/Adverse Reactions: Penicillins Allergy (Verified 12/14/21 16:16) codeine Adverse Reaction (Verified 12/14/21 15:00) metoclopramide HCl [From Reglan] Adverse Reaction (Verified 12/14/21 15:00) morphine Adverse Reaction (Verified 12/14/21 15:00) SEDATED Sulfa (Sulfonamide Antibiotics) Adverse Reaction (Verified 12/14/21 15:00) Home Medications: Aspirin [Aspirin EC] 81 mg PO DAILY 08/18/16 [History] Atenolol 50 mg [Tenormin 50 mg] 25 mg PO DAILY 08/18/16 [History] Atorvastatin Calcium 40 mg PO HS 08/18/16 [History] Duloxetine HCl [Cymbalta] 60 mg PO HS 08/18/16 [History] Metformin HCl 500 mg [Glucophage 500 MG] 500 mg PO BID 08/21/17 [History] Cholecalciferol (Vitamin D3) [Vitamin D] 1 units PO DAILY 04/07/21 [History] Herminie-3 Fatty Acids/Fish Oil [Fish Oil 1,000 mg Capsule] 1 mg PO DAILY 04/07/21 [History] Gabapentin [Neurontin ] 600 mg PO TID 07/26/21 [History] Hydrocodone/Acetaminophen [Hydrocodon-Acetaminophn 10-325] 1 each PO DAILY 07/26/21 [History] Lisinopril 20 mg [Zestril 20 MG] 20 mg PO DAILY 07/26/21 [History] PANTOPRAZOLE 40 mg Tablet [Protonix 40MG Tablet] 40 mg PO BID 07/26/21 [History] Trazodone HCl 50 mg [Desyrel 50 mg] 75 mg PO HS 07/26/21 [History] Valerian Root 500 mg PO HS 07/26/21 [History] Clopidogrel Bisulfate [PLAVIX 75 MG Tablet] 75 mg PO DAILY 01/10/22 [History] Rivaroxaban [Xarelto] 20 mg PO 01/10/22 [History] Hx Tetanus, Diphtheria Vaccination/Date Given: No Hx Influenza Vaccination/Date Given: Yes Hx Pneumococcal Vaccination/Date Given: Yes Immunizations Up to Date: Yes Travel Risk - International Travel Have you traveled outside of the country in past 3 weeks: No - Coronavirus Screening Are you exhibiting any of the following symptoms?: Yes Symptoms: Vomiting/Diarrhea Close contact with a COVID-19 positive Pt in past 14-21 Days: No - Vaccine Status Have you recieved a Covid-19 vaccination: Yes Manager Heart: Moderna - Vaccination Dates Date of 2cond Vaccination (if applicable): 11/10/20 - Review of Systems Constitutional: Fatigue, Weakness Eyes: No Symptoms Ears, Nose, & Throat: No Symptoms Respiratory: No Symptoms Cardiac: No Symptoms Abdominal/Gastrointestinal: Abdominal Pain, Nausea, Diarrhea Genitourinary Symptoms: No Symptoms Musculoskeletal: Arthralgias Skin: No Symptoms Neurological: No Symptoms Psychological: No Symptoms Endocrine: No Symptoms Hematologic/Lymphatic: No Symptoms Immunological/Allergic: No Symptoms - Past Medical History Pertinent Past Medical History: Yes Neurological History: Peripheral Neuropathy, TIA ENT History: Cataracts Cardiac History: Deep Vein Thrombosis, Hypertension Respiratory History: No Pertinent History Endocrine Medical History: Diabetes Type II Musculoskeletal History: Arthritis, Fractures, Osteoporosis GI Medical History: GERD, Other History: Other Psycho-Social History: Anxiety, Depression Female Reproductive Disorders: Other Other Medical History: BECHETS. Hx IVC filter for DVT. L KNEE SURGERY. Pessiary. HX Kidney Stones, HX UTI,. hx colon resection - Past Surgical History Past Surgical History: Yes Neuro Surgical History: No Pertinent History Cardiac: No Pertinent History Respiratory: No Pertinent History Gastrointestinal: Appendectomy, Cholecystectomy, Colon Resection, Hernia Repair Genitourinary: No Pertinent History Musculoskeletal: No Pertinent History Female Surgical History: Hysterectomy Other Surgical History: GASTRIC BYPASS - Social History Smoking Status: Never smoker Exposure to second hand smoke: No Drug Use: none Patient Lives Alone: Yes - Nursing Vital Signs Nursing Vital Signs: Initial Vital Signs Temperature 98.5 F 05/12/22 13:34 Pulse Rate 75 05/12/22 13:34 Respiratory Rate 16 05/12/22 13:34 Blood Pressure 161/93 05/12/22 13:34 O2 Sat by Pulse Oximetry 94 L 05/12/22 13:34 Pain Scale Pain Intensity 3 - Physical Exam General Appearance: no apparent distress, alert Eye Exam: PERRL/EOMI Ears, Nose, Throat Exam: normal ENT inspection, pharynx normal, moist mucous membranes Neck Exam: normal inspection, non-tender, supple, full range of motion Respiratory Exam: normal breath sounds, lungs clear Cardiovascular Exam: regular rate/rhythm, normal heart sounds Gastrointestinal/Abdomen Exam: soft, normal bowel sounds, No tenderness, No guar ding Back Exam: normal inspection, normal range of motion Extremity Exam: normal inspection, normal range of motion Neurologic Exam: alert, oriented x 3, cooperative Skin Exam: normal color SpO2 Interpretation: normal SpO2: 94 O2 Delivery: Room Air - Course EKG Interpreted by Me: RATE (75), Sinus Rhythm, NORMAL AXIS, NORMAL INTERVALS Ordered Tests: Active Orders 24 hr Category Date Time Status EKG-ER Only STAT Care 05/12/22 14:06 Completed IV Insertion STAT Care 05/12/22 13:53 Completed NPO (ED) STAT Care 05/12/22 13:53 Completed ABDOMEN AND PELVIS W/0 CONTRAS [CT] Stat Exams 05/12/22 14:21 Completed CBC W DIFF Stat Lab 05/12/22 14:00 Completed LIPASE Stat Lab 05/12/22 13:30 Completed UA W/RFX CULTURE Stat Lab 05/12/22 Ordered Medication Summary Discontinued Medications Generic Name Dose Route Start Last Admin Trade Name Yandelq PRN Reason Stop Dose Admin Famotidine 20 mg 05/12/22 13:53 05/12/22 14:20 Famotidine 20 Mg/1 Vial IV 05/12/22 13:54 20 mg STAT ONE Administration Famotidine Confirm 05/12/22 14:19 Famotidine 20 Mg/1 Vial Administered 05/12/22 14:20 Dose 20 mg IV .STK-MED ONE Sodium Chloride 500 mls @ 500 mls/hr 05/12/22 13:55 05/12/22 15:21 Sodium Chloride 0.9% 500 Ml IV 05/12/22 14:54 Infused .Q1H ONE Infusion Sodium Chloride Confirm 05/12/22 14:19 Sodium Chloride 0.9% 500 Ml Administered 05/12/22 14:20 Dose 500 mls @ ud IV .STK-MED ONE Ondansetron HCl 4 mg 05/12/22 13:53 05/12/22 14:20 Ondansetron Hcl 4 Mg/2 Ml Vial IV 05/12/22 13:54 4 mg STAT ONE Administration Ondansetron HCl Confirm 05/12/22 14:19 Ondansetron Hcl 4 Mg/2 Ml Vial Administered 05/12/22 14:20 Dose 4 mg .ROUTE .STK-MED ONE Lab/Rad Data: Laboratory Result Diagrams 05/12/22 14:00 05/12/22 14:00 Laboratory Results 05/12/22 05/12/22 05/12/22 Range/Units 14:00 14:00 13:30 WBC 7.9 (4.0-10.5) x10^3/uL RBC 4.61 (4.1-5.4) x10^6/uL Hgb 10.0 L (12.0-16.0) g/dL Hct 35.4 (35-47) % MCV 76.8 L (78-100) fL MCH 21.7 L (26-32) pg MCHC 28.2 L (32-36) g/dL RDW 18.9 H (11.5-14.0) % Plt Count 213 (150-450) x10^3/uL MPV 9.1 (7.5-11.0) fL Gran % 54.4 (36.0-66.0) % Immature Gran % (Auto) 0.4 (0.00-0.4) % Nucleat RBC Rel Count 0.0 (0.00-0.1) % Eos # (Auto) 0.28 (0-0.5) x10^3/uL Immature Gran # (Auto) 0.03 (0.00-0.03) x10^3u/L Absolute Lymphs (auto) 2.53 (1.0-4.6) x10^3/uL Absolute Monos (auto) 0.71 (0.0-1.3) x10^3/uL Absolute Nucleated RBC 0.00 (0.00-0.01) x10^3u/L Lymphocytes % 32.1 (24.0-44.0) % Monocytes % 9.0 (0.0-12.0) % Eosinophils % 3.5 (0.00-5.0) % Basophils % 0.6 (0.0-0.4) % Absolute Granulocytes 4.29 (1.4-6.9) x10^3/uL Basophils # 0.05 (0-0.4) x10^3/uL Sodium Direct 141 (138-146) mmol/L Potassium 4.3 (3.5-4.9) mmol/L Chloride 105 (98-109) mmol/L Carbon Dioxide 21 L (24-29) mmol/L Venous BUN 24 (8-26) mg/dL Creatinine 0.7 (0.6-1.3) mg/dL Glucose 172 H (70-105) mg/dL Ionized Calcium 1.30 (1.12-1.32) mmol/L Lipase 55 (23-300) U/L Slides for Path Review YES - Progress Progress: improved Progress Note: 05/12/22 16:32 77-year-old is evaluated for upper abdominal discomfort. Nausea and diarrhea. Duration diarrhea is improved after she took some Imodium and no bowel movement since 3 AM. She is given fluid bolus. Work-up showed normal white count, stable H&H. Grossly unremarkable chemistries. CT abdomen pelvis without contrast this essentially unremarkable for any acute findings. Patient is feeling much better on reevaluation after Pepcid and Zofran. She does take Carafate at home, I will give her Pepcid to go home as well to use regularly and Zofran to take as needed. As her symptoms seems to be related to gastritis. Recommended outpatient follow-up. Discussed signs symptoms of worsening needing return to ER which she seems understanding. Counseled pt/family regarding: lab results, diagnosis, need for follow-up, rad results - Departure Departure Disposition: Home Clinical Impression: Gastritis, Diarrhea Condition: Stable Critical Care Time: No Referrals: MIHAELA PEREIRA [Primary Care Provider] - Follow Up with PCP/3 days Instructions: Diarrhea and Travelers' Diarrhea, Adult (DC) Additional Instructions: Drink plenty of fluids to keep yourself well-hydrated. Take Zofran as needed. Do not take ibuprofen or any other NSAIDs. Follow-up with primary care for reevaluation. Return to ER for any worsening Prescriptions: Famotidine 20 mg [Pepcid 20 MG] 20 mg PO BID #60 tablet Ondansetron ODT 4 MG [Zofran Odt 4 mg] 1 ea PO QIDPRN PRN #7 tablet PRN Reason: n/v
[2022-05-12] MEDS ORDERED: Zofran 4 MG/2 ML VIAL ONE (14:19)
[2022-05-12 14:26] LABS: Absolute Neutrophil Ct (ANC) 4.29 x10^3/uL (1.4-6.9); Basophil (Absolute #) 0.05 x10^3/uL (0-0.4); Eosinophil % 3.5 % (0.00-5.0); Eosinophil (Absolute #) 0.28 x10^3/uL (0-0.5); Hematocrit 35.4 % (35-47); Lymphocyte (Absolute #) 2.53 x10^3/uL (1.0-4.6); Lymphocytes % 32.1 % (24.0-44.0); Mean Cell Volume 76.8 fL (78-100); Mean Corpuscular Hemoglobin 21.7 pg (26-32); Mean Corpuscular Hgb Concent. 28.2 g/dL (32-36); Mean Platelet Volume 9.1 fL (7.5-11.0); Monocyte (Absolute #) 0.71 x10^3/uL (0.0-1.3); Neutrophil % 54.4 % (36.0-66.0); Platelet Count 213 x10^3/uL (150-450); Red Blood Count 4.61 x10^6/uL (4.1-5.4); Red Cell Distribution Width 18.9 % (11.5-14.0); White Blood Count 7.9 x10^3/uL (4.0-10.5)
--- NOTE | 2022-05-12 14:42 | XRAY ---
Indication: Abdomen pain and diarrhea. History of gastritis. Multiple contiguous axial images obtained through the abdomen and pelvis without contrast. Comparison: May 03, 2021 Lung bases again demonstrate bibasilar fibrosis/scarring and bronchiectasis. No infiltrate or effusion. Heart not enlarged. Stomach is mildly distended with food/fluid. Noncontrasted stomach and bowel loops remain nonobstructed with intact right lower quadrant anastomosis, splenic calcified granulomas, left renal cortical thinning/scarring, appendectomy, cholecystectomy, hysterectomy, IVC filter, pelvic floor pessary device, and ventral hernia repair. There remains mild scattered colonic fecal debris throughout, less than before. No free fluid/air. Remaining liver, pancreas, spleen, adrenal glands, kidneys, ureters, and bladder are unremarkable for noncontrast exam. Again mild scattered aortoiliac calcifications without AAA. Osseous structures intact again with osteopenia, moderate/advanced multilevel thoracolumbar degenerative spondylosis, grade 3 L4 spondylolisthesis, significant levorotoscoliosis, and old right inferior pubic ramus fracture. Impression: 1. Chronic findings including left renal cortical thinning/scarring, postsurgical changes, arteriosclerotic disease, bibasilar pulmonary fibrosis/scarring/bronchiectasis, chronic bony findings, and old granulomatous disease. 2. Remaining CT abdomen/pelvis without contrast exam is again negative.
[2022-05-12 15:44] LABS: ISTAT CREA 0.7 mg/dL (0.6-1.3); ISTAT K 4.3 mmol/L (3.5-4.9)
[2022-05-12 16:41] VITALS: PULSE 89
[2022-05-12 18:36] LABS: Slide Review 1 YES
[2022-05-12 22:40] VITALS: O2SAT 94
== END 2022-05-12 16:47 | disposition home or self-care (01) ==
LOC: ED 13:08
DX: K29.70 Gastritis, unspecified, without bleeding (principal); R19.7 Diarrhea, unspecified; R10.10 Upper abdominal pain, unspecified; R11.0 Nausea; I10 Essential (primary) hypertension; E11.42 Type 2 diabetes mellitus with diabetic polyneuropathy; Z79.01 Long term (current) use of anticoagulants; Z79.02 Long term (current) use of antithrombotics/antiplatelets; Z79.84 Long term (current) use of oral hypoglycemic drugs; Z79.891 Long term (current) use of opiate analgesic; Z79.899 Other long term (current) drug therapy
CPT/HCPCS: 36000; 36415; 74176; 80047; 83690; 85025; 93005; 96374; 96375; 99284; J2405

== ENCOUNTER 2023-02-02 05:44 | Day surgery (SDC) | payer MEDICARE, BC ==
[2023-02-02] MEDS ORDERED: Marcaine Mpf 0.5% Vial 30 Ml ONE (06:24)
[2023-02-02] MEDS ORDERED: Xylocaine 1% Vial 30 ML PF IJ ONE (06:25)
[2023-02-02] MEDS ORDERED: Lactated Ringers 1,000 ML IV SCH (06:30)
[2023-02-02 06:49] LABS: Hematocrit 26.4 % (35-47); Hemoglobin 7.3 g/dL (12.0-16.0); Mean Cell Volume 69.7 fL (78-100); Mean Corpuscular Hemoglobin 19.3 pg (26-32); Mean Corpuscular Hgb Concent. 27.7 g/dL (32-36); Mean Platelet Volume 8.6 fL (7.5-11.0); Platelet Count 312 x10^3/uL (150-450); Red Blood Count 3.79 x10^6/uL (4.1-5.4); Red Cell Distribution Width 19.9 % (11.5-14.0); White Blood Count 7.2 x10^3/uL (4.0-10.5)
[2023-02-02] MEDS ORDERED: Versed 2 MG/2 ML Injection ONE (06:57)
[2023-02-02] MEDS ORDERED: DIPRIVAN 200 MG/20 ML IV ONE (06:57)
[2023-02-02] MEDS ORDERED: SUBLIMAZE 100 MCG/2 ML ONE (06:57)
[2023-02-02] MEDS ORDERED: CLINDAMYCIN-D5W 900 MG/50 ML*** 900 MG/50 ML BAG IV SCH (07:00)
[2023-02-02 07:02] LABS: ALBUMIN 4.1 g/dL (3.5-5.0); ALKALINE PHOSPHATASE 70 U/L (38-126); ANION GAP 17.4 MEQ/L (5-15); BLOOD UREA NITROGEN 24 mg/dL (7-17); CHLORIDE 106 mmol/L (98-107); Calcium 8.8 mg/dL (8.4-10.2); Carbon Dioxide 23 mmol/L (22-30); EST GLOMERULAR FILTRATION RATE > 60.0 ML/MIN; Glucose 172 mg/dL (74-106); Potassium 4.5 mmol/L (3.5-5.1); SGOT/AST 24 U/L (14-36); SGPT/ALT 21 U/L (0-35); SODIUM 141 mmol/L (137-145); Total Protein 7.6 g/dL (6.3-8.2)
[2023-02-02 07:04] LABS: INR 1.04 (0.8-3.0); PROTIME 11.3 SECONDS (9.4-12.5); PTT 24.1 SECONDS (25.1-36.5)
[2023-02-02] MEDS ORDERED: CLINDAMYCIN-D5W 900 MG/50 ML*** 900 MG/50 ML BAG IV ONE (07:10)
[2023-02-02 09:11] VITALS: BP 135/80; PULSE 71; O2SAT 96
--- NOTE | 2023-02-02 09:26 | XRAY ---
Indication: Follow-up 2nd toe amputation. Comparison: None 2 nonweightbearing views right foot demonstrates total 2nd toe amputation without obvious complications. Remaining foot demonstrates osteopenia, advanced 1st MTP degenerative changes, 3rd/4th hammertoe deformities, and tiny heel spurs.
--- NOTE | 2023-02-02 09:40 | OP ---
SURGERY DATE/TIME: 02/02/2023 0738 PREOPERATIVE DIAGNOSES: 1) Hammer toe right second toe. 2) Right foot pain. 3) Rheumatoid arthritis. 4) Chronic nonhealing ulcer. 5) Diabetes mellitus. POSTOPERATIVE DIAGNOSES: 1) Hammer toe right second toe. 2) Right foot pain. 3) Rheumatoid arthritis. 4) Chronic nonhealing ulcer. 5) Diabetes mellitus. PROCEDURE: Amputation second digit right foot. SURGEON: lAex Hanley DPM. CUSTOMER RELATIONS CONSULTANT: None. ANESTHESIA: MAC with local. HEMOSTASIS: Pressure dressing. ESTIMATED BLOOD LOSS: Less than 5 cc. MATERIALS: 4-0 Monocryl, 3-0 Nylon. INJECTABLES: 20 cc of a 1:1 mixture of 1% lidocaine plain and 0.5% bupivacaine plain injected in a metatarsal block-type fashion. INDICATION FOR SURGERY: Luz Marina is a very pleasant 77-year-old female who is very well known to my service for nonhealing ulceration to the second digit. The patient is a diabetic as well as has rheumatoid arthritis with significant contracture. She is 77 years old and her medical history is somewhat complicated. As far as the chronic nonhealing ulcer, we had gotten it healed in the past before however it busted back open within a short period of time due to pressure from shoe gear. Options were discussed with the patient in regards to treatment and the patient was deemed a poor candidate for reconstructive surgery for the forefoot secondary to her rheumatoid and the contracture. Option was to proceed with an amputation. The patient put a significant amount of thought into this option in order to resolve the issue and decided it was the best option with the least down time. The patient understands all risks, complications and benefits of surgical intervention at this time including but not limited to infection, hematoma, seroma, possibility of delayed wound healing, nonwound healing, possibility of infection and possible need for surgical intervention at a later date. There were no guarantees provided as to the outcome of surgical intervention at this time. Plenty of time was allowed for the patient as well as her son to ask questions which were answered to her apparent satisfaction. It is with that we decided to proceed. DESCRIPTION OF PROCEDURE AND FINDINGS: The patient is brought into the OR and placed and placed on the OR table in the supine position. At this time monitored anesthesia care was administered until the patient was sedated. At this time the right lower extremity was prepped and draped in the typical sterile fashion and lowered onto the surgical field. At this time a metatarsal block was performed in order to localize the area surrounding the second metatarsal. After a couple of minutes, a dorsal to plantar fish mouth incision was planned over the dorsal aspect of the second metatarsophalangeal joint extending skin margins to the second digit. Laps were utilized to retract the other toes out of the soft tissue planes. A 15 blade was then utilized to make an incision down to the level of the bone circumscribing the lines that were defined through the fish mouth incision/dorsal racket incision. At this time resection of the second digit was performed at the level of the metatarsophalangeal joint utilizing a 15 blade. Copious amounts of sterile saline were utilized to flush the surgical site. At this time attention was directed to the amputated digit where there was some loss of bone quality. We also did probe to bone in recent history. Bone biopsy as well as bone cultures were taken as well as soft tissue cultures were taken and handed off the field for pathologic assessment. At this time 4-0 Monocryl was utilized to coapt the subcutaneous edges in a simple interrupted buried-type fashion and 3-0 Nylon was utilized in horizontal mattress-type fashion to coapt the skin edges in everted-type fashion. The foot was cleansed with saline and dried. Dressing consisting of Betadine, Adaptic, 4x4, Kerlix and JIGNA was then applied to the patient's right foot. The patient then was reversed from anesthesia and returned to the postoperative anesthesia care unit with vital signs stable and vascular status intact. The patient handled the anesthesia as well as the procedure without significant complication. Postoperative orders as indicated in the patient's discharge chart.
== END 2023-02-02 09:20 | disposition home or self-care (01) ==
LOC: SDC 05:44
PROVIDERS: ATTEND Podiatrist Foot & Ankle Surgery
DX: M20.41 Other hammer toe(s) (acquired), right foot (principal); M79.671 Pain in right foot; M06.9 Rheumatoid arthritis, unspecified; L97.519 Non-pressure chronic ulcer of other part of right foot with unspecified severity; E11.621 Type 2 diabetes mellitus with foot ulcer; Z79.01 Long term (current) use of anticoagulants
CPT/HCPCS: 28810; 36415; 73620; 80053; 82947; 85027; 85610; 85730; 87070; 87077; 87186; 93005; 99100; J2001; J2250; J2704; J3010

== ENCOUNTER 2023-04-27 16:08 | Observation (INO) | payer MEDICARE, BC ==
--- NOTE | 2023-04-27 16:21 | ERPHSYRPT ---
- History of Present Illness Time Seen by Provider: 04/27/23 16:20 Source: patient, family Exam Limitations: no limitations Physician History: This is a 78-year-old white female patient who was sent to our emergency department because of a low hemoglobin measurement of 6.9 today. The blood was drawn approximately 1300 on 04/27/2023. Patient has had a gastric bypass in the past. She also has had symptomatic anemia in the past and there is been no localization of the site of bleed. Patient has had headaches, been dizzy, weak and short of breath. She has not been vomiting blood. She has not been urinating blood, she has not been having bloody bowel movements per her knowledge. Patient has a history of hypertension, hyperlipidemia, diabetes, depression/anxiety, she has been on Xarelto. She has a history of DVT and TIAs as well as gastroesophageal reflux disease and peripheral neuropathy. She has an IVC filter in place. Timing/Duration: today Severity: moderate Associated Symptoms: headaches, weakness, other (Dizziness) Allergies/Adverse Reactions: Penicillins Allergy (Verified 04/27/23 16:29) codeine Adverse Reaction (Verified 04/27/23 16:29) metoclopramide HCl [From Reglan] Adverse Reaction (Verified 04/27/23 16:29) morphine Adverse Reaction (Verified 04/27/23 16:29) SEDATED Sulfa (Sulfonamide Antibiotics) Adverse Reaction (Verified 04/27/23 16:29) Home Medications: Aspirin [Aspirin EC] 81 mg PO DAILY 08/18/16 [History] Atenolol 50 mg [Tenormin 50 mg] 25 mg PO DAILY 08/18/16 [History] Atorvastatin Calcium 40 mg PO HS 08/18/16 [History] Metformin HCl 500 mg [Glucophage 500 MG] 500 mg PO BID 08/21/17 [History] [place]-3 Fatty Acids/Fish Oil [Fish Oil 1,000 mg Capsule] 1 mg PO DAILY 04/07/21 [History] Lisinopril 20 mg [Zestril 20 MG] 20 mg PO DAILY 07/26/21 [History] Trazodone HCl 50 mg [Desyrel 50 mg] 75 mg PO HS 07/26/21 [History] Rivaroxaban [Xarelto] 20 mg PO DAILY 01/10/22 [History] Acetaminophen 500 mg [Tylenol Extra Strength 500 mg] 500 mg PO DAILY 01/17/23 [History] Biotin 1 mg PO DAILY 01/17/23 [History] Brimonidine Tartrate [Alphagan P] 5 ml OP DAILY 01/17/23 [History] Lactobacillus Rhamnosus GG [Culturelle] 1 each PO DAILY 01/17/23 [History] Latanoprost 2.5 ml OP DAILY 01/17/23 [History] Magnesium Oxide [Magnesium] 250 mg PO DAILY 01/17/23 [History] Melatonin 10 mg PO HS 01/17/23 [History] Omeprazole 20 mg PO DAILY 01/17/23 [History] Timolol [Betimol] 5 ml OP DAILY 01/17/23 [History] Valerian Root 500 mg PO HS 01/17/23 [History] Multivitamin/Iron/Folic Acid [Centrum Complete Multivit Tab] 2 tab PO DAILY 01/22/23 [History] Hx Tetanus, Diphtheria Vaccination/Date Given: No Hx Influenza Vaccination/Date Given: Yes Hx Pneumococcal Vaccination/Date Given: Yes Travel Risk - International Travel Have you traveled outside of the country in past 3 weeks: No - Coronavirus Screening Are you exhibiting any of the following symptoms?: No Close contact with a COVID-19 positive Pt in past 14-21 Days: No - Vaccine Status Have you recieved a Covid-19 vaccination: Yes Watchmaker Apprentice: Moderna - Vaccination Dates Date of 2cond Vaccination (if applicable): 11/10/20 - Review of Systems Constitutional: Weakness Eyes: No Symptoms Ears, Nose, & Throat: No Symptoms Respiratory: No Symptoms Cardiac: No Symptoms Abdominal/Gastrointestinal: No Symptoms Genitourinary Symptoms: No Symptoms Musculoskeletal: No Symptoms Skin: No Symptoms Neurological: Dizziness, Headache Psychological: No Symptoms Endocrine: No Symptoms Hematologic/Lymphatic: No Symptoms Immunological/Allergic: No Symptoms All Other Systems: Reviewed and Negative - Past Medical History Pertinent Past Medical History: Yes Neurological History: Peripheral Neuropathy, TIA ENT History: Cataracts Cardiac History: Deep Vein Thrombosis, Hypertension Respiratory History: No Pertinent History Endocrine Medical History: Diabetes Type II Musculoskeletal History: Arthritis, Fractures, Osteoporosis GI Medical History: GERD, Other History: Other Psycho-Social History: Anxiety, Depression Female Reproductive Disorders: Other Other Medical History: BECHETS. Hx IVC filter for DVT. L KNEE SURGERY. Pessiary. HX Kidney Stones, HX UTI,. hx colon resection - Past Surgical History Past Surgical History: Yes Neuro Surgical History: No Pertinent History Cardiac: No Pertinent History Respiratory: No Pertinent History Gastrointestinal: Appendectomy, Cholecystectomy, Colon Resection, Hernia Repair Genitourinary: No Pertinent History Musculoskeletal: No Pertinent History Female Surgical History: Hysterectomy Other Surgical History: GASTRIC BYPASS - Social History Smoking Status: Never smoker Exposure to second hand smoke: No Drug Use: none Patient Lives Alone: Yes - Nursing Vital Signs Nursing Vital Signs: Initial Vital Signs Temperature 97.4 F 04/27/23 16:34 Pulse Rate 83 04/27/23 16:34 Respiratory Rate 18 04/27/23 16:34 Blood Pressure 136/72 04/27/23 16:34 O2 Sat by Pulse Oximetry 98 04/27/23 16:34 Pain Scale Pain Intensity 0 - Physical Exam General Appearance: no apparent distress, alert, anxiety, thin Eye Exam: pale conjunctivae Ears, Nose, Throat Exam: dry mucous membranes Neck Exam: normal inspection, non-tender, supple, full range of motion Respiratory Exam: normal breath sounds, lungs clear, airway intact, No chest tenderness, No respiratory distress Cardiovascular Exam: regular rate/rhythm, normal heart sounds, normal peripheral pulses Gastrointestinal/Abdomen Exam: soft, normal bowel sounds, No tenderness Pelvic Exam: not done Rectal Exam: not done Back Exam: normal inspection, normal range of motion, No CVA tenderness, No vertebral tenderness Extremity Exam: normal inspection, normal range of motion, pelvis stable Neurologic Exam: alert, oriented x 3, cooperative, cd technician II-XII nml as tested, normal mood/affect, nml cerebellar function, nml station & gait, sensation nml Skin Exam: pale Lymphatic Exam: No adenopathy SpO2 Interpretation: normal O2 Delivery: Room Air - Course Nursing assessment & vital signs reviewed: Yes Ordered Tests: Active Orders 24 hr Category Date Time Status IV Insertion STAT Care 04/27/23 17:14 Active ABDOMEN AND PELVIS W/0 CONTRAS [CT] Stat Exams 04/27/23 17:14 Completed CBC W DIFF Stat Lab 04/27/23 16:40 Completed CMP Stat Lab 04/27/23 16:40 Completed Occult Blood-Fecal Screen (Diagnostic) [OB-FECAL SCREEN Lab 08/18/23 Ordered ] Stat PROTIME WITH INR Stat Lab 04/27/23 16:40 Completed Transfer Order Routine Transfer 04/27/23 Ordered Medication Summary Discontinued Medications Generic Name Dose Route Start Last Admin Trade Name Gloria PRN Reason Stop Dose Admin Sodium Chloride Confirm 04/27/23 19:35 Sodium Chloride 0.9% 1000 Ml Administered 04/27/23 19:36 Dose 1,000 mls @ ud [facility] Lab/Rad Data: Laboratory Result Diagrams 04/27/23 16:40 04/27/23 16:40 Laboratory Results 04/27/23 04/27/23 04/27/23 Range/Units 16:40 16:40 16:40 WBC (4.0-10.5) x10^3/uL RBC (4.1-5.4) x10^6/uL Hgb (12.0-16.0) g/dL Hct (35-47) % MCV (78-100) fL MCH (26-32) pg MCHC (32-36) g/dL RDW (11.5-14.0) % Plt Count (150-450) x10^3/uL MPV (7.5-11.0) fL Gran % (36.0-66.0) % Immature Gran % (Auto) (0.00-0.4) % Nucleat RBC Rel Count (0.00-0.1) % Eos # (Auto) (0-0.5) x10^3/uL Immature Gran # (Auto) (0.00-0.03) x10^3u/L Absolute Lymphs (auto) (1.0-4.6) x10^3/uL Absolute Monos (auto) (0.0-1.3) x10^3/uL Absolute Nucleated RBC (0.00-0.01) x10^3u/L Lymphocytes % (24.0-44.0) % Monocytes % (0.0-12.0) % Eosinophils % (0.00-5.0) % Basophils % (0.0-0.4) % Absolute Granulocytes (1.4-6.9) x10^3/uL Basophils # (0-0.4) x10^3/uL PT (9.4-12.5) SECONDS INR (0.8-3.0) Sodium (137-145) mmol/L Potassium (3.5-5.1) mmol/L Chloride (98-107) mmol/L Carbon Dioxide (22-30) mmol/L Anion Gap (5-15) MEQ/L BUN (7-17) mg/dL Creatinine (0.52-1.04) mg/dL Estimated GFR ML/MIN Glucose (74-106) mg/dL Calcium (8.4-10.2) mg/dL Total Bilirubin (0.2-1.3) mg/dL AST (14-36) U/L ALT (0-35) U/L Alkaline Phosphatase (38-126) U/L Serum Total Protein (6.3-8.2) g/dL Albumin (3.5-5.0) g/dL Slides for Path Review ABO Group O Rh Factor POSITIVE Antibody Screen NEGATIVE (NEGATIVE) Crossmatch COMPATIBLE COMPATIBLE COMPATIBLE (COMPATIBLE) 04/27/23 04/27/23 04/27/23 Range/Units 16:40 16:40 16:40 WBC 7.8 (4.0-10.5) x10^3/uL RBC 3.81 L (4.1-5.4) x10^6/uL Hgb 6.5 L* (12.0-16.0) g/dL Hct 24.7 L (35-47) % MCV 64.8 L (78-100) fL MCH 17.1 L (26-32) pg MCHC 26.3 L (32-36) g/dL RDW 23.2 H (11.5-14.0) % Plt Count 276 (150-450) x10^3/uL MPV 9.0 (7.5-11.0) fL Gran % 50.8 (36.0-66.0) % Immature Gran % (Auto) 0.5 H (0.00-0.4) % Nucleat RBC Rel Count 0.0 (0.00-0.1) % Eos # (Auto) 0.36 (0-0.5) x10^3/uL Immature Gran # (Auto) 0.04 H (0.00-0.03) x10^3u/L Absolute Lymphs (auto) 2.73 (1.0-4.6) x10^3/uL Absolute Monos (auto) 0.67 (0.0-1.3) x10^3/uL Absolute Nucleated RBC 0.00 (0.00-0.01) x10^3u/L Lymphocytes % 34.9 (24.0-44.0) % Monocytes % 8.6 (0.0-12.0) % Eosinophils % 4.6 (0.00-5.0) % Basophils % 0.6 (0.0-0.4) % Absolute Granulocytes 3.98 (1.4-6.9) x10^3/uL Basophils # 0.05 (0-0.4) x10^3/uL PT 13.0 H (9.4-12.5) SECONDS INR 1.21 (0.8-3.0) Sodium 138 (137-145) mmol/L Potassium 4.9 (3.5-5.1) mmol/L Chloride 103 (98-107) mmol/L Carbon Dioxide 22 (22-30) mmol/L Anion Gap 17.4 H (5-15) MEQ/L BUN 23 H (7-17) mg/dL Creatinine 0.67 (0.52-1.04) mg/dL Estimated GFR > 60.0 ML/MIN Glucose 157 H (74-106) mg/dL Calcium 9.1 (8.4-10.2) mg/dL Total Bilirubin 0.60 (0.2-1.3) mg/dL AST 27 (14-36) U/L ALT 22 (0-35) U/L Alkaline Phosphatase 79 (38-126) U/L Serum Total Protein 7.7 (6.3-8.2) g/dL Albumin 4.3 (3.5-5.0) g/dL Slides for Path Review YES ABO Group Rh Factor Antibody Screen (NEGATIVE) Crossmatch (COMPATIBLE) - Progress Progress: improved, re-examined Progress Note: 04/27/23 18:48 This patient's medical issue is 1 of high complexity. Level complexity in the work-up performed is based on review of the patient's past medical history, review of the patient's medication list, review of the patient's drug allergy list, history of present illness and physical findings on examination. The work-up in this patient includes placement of intravenous line, type and cross for 3 units of packed red blood cells, occult fecal stool sample, CT scan of the abdomen pelvis, CBC, CMP, PT/INR. Patient has symptomatic anemia and requires blood transfusion. We are awaiting the results of the CAT scan of the abdomen pelvis on the remainder of the laboratory data. We will contact the telehospitalist for admission/placement in observation of this patient once all studies have returned and been reviewed and interpreted. 04/27/23 20:33 CAT scan of the abdomen and pelvis without contrast was interpreted by the radiologist and I reviewed the impression. Impression states hepatomegaly. There is mild bilateral hydronephrosis seen. This is likely secondary to 1 to 2 mm stone in the right proximal ureter. I discussed this finding with the patient. She is asymptomatic regarding the right ureteral stone. I reviewed the patient history, the laboratory work-up results and the radiographic findings on this patient with telehospitalist Dr. Cordero. We, together decided to place the patient in observation and provide the patient with blood transfusions on the medical floor under telemetry. Counseled pt/family regarding: lab results, diagnosis, rad results Medical Desision Making - Independent Historian Additional History obtained from: Child - Discussion of managment Care discussed with:: hospitalist Reviewed:: Test results, Need for additional workup Will see patient: in hospital - Diagnostic Testing Diagnostic test were ordered, analyzed, and reviewed by me: Yes Radiological Interpretation: Reviewed by me, Teleradiologist Report - Risk of complications The pt has a high risk of morbidity or mortality based on: Decision regarding hospitilization or escalation of hosp level of care - Departure Departure Disposition: Observation Clinical Impression: Symptomatic anemia, Weakness, Transfusion of blood during current hospitalisation Condition: Fair Critical Care Time: Yes Critical Care Time(excluding separately billable procedures): Critical 30-74 mins (40 minutes) Referrals: JOSE DANIEL ANGLIN [facility] DEPUTY CLERK [Primary Care Provider] - Follow up/PCP as directed
[2023-04-27 17:25] LABS: Absolute Neutrophil Ct (ANC) 3.98 x10^3/uL (1.4-6.9); BASOPHIL % 0.6 % (0.0-0.4); Basophil (Absolute #) 0.05 x10^3/uL (0-0.4); Eosinophil % 4.6 % (0.00-5.0); Eosinophil (Absolute #) 0.36 x10^3/uL (0-0.5); Hematocrit 24.7 % (35-47); IMMATURE GRAN # 0.04 x10^3u/L (0.00-0.03); IMMATURE GRAN % 0.5 % (0.00-0.4); Lymphocyte (Absolute #) 2.73 x10^3/uL (1.0-4.6); Lymphocytes % 34.9 % (24.0-44.0); Mean Cell Volume 64.8 fL (78-100); Mean Corpuscular Hemoglobin 17.1 pg (26-32); Mean Corpuscular Hgb Concent. 26.3 g/dL (32-36); Monocyte (Absolute #) 0.67 x10^3/uL (0.0-1.3); Monocytes % 8.6 % (0.0-12.0); Neutrophil % 50.8 % (36.0-66.0); Platelet Count 276 x10^3/uL (150-450); Red Blood Count 3.81 x10^6/uL (4.1-5.4); Red Cell Distribution Width 23.2 % (11.5-14.0); White Blood Count 7.8 x10^3/uL (4.0-10.5)
[2023-04-27 17:31] LABS: ALBUMIN 4.3 g/dL (3.5-5.0); ALKALINE PHOSPHATASE 79 U/L (38-126); ANION GAP 17.4 MEQ/L (5-15); BLOOD UREA NITROGEN 23 mg/dL (7-17); CHLORIDE 103 mmol/L (98-107); Calcium 9.1 mg/dL (8.4-10.2); Carbon Dioxide 22 mmol/L (22-30); Creatinine 1 0.67 mg/dL (0.52-1.04); EST GLOMERULAR FILTRATION RATE > 60.0 ML/MIN; Glucose 157 mg/dL (74-106); INR 1.21 (0.8-3.0); Potassium 4.9 mmol/L (3.5-5.1); SGOT/AST 27 U/L (14-36); SGPT/ALT 22 U/L (0-35); SODIUM 138 mmol/L (137-145); Total Protein 7.7 g/dL (6.3-8.2)
[2023-04-27 17:36] LABS: Hemoglobin 6.5 g/dL (12.0-16.0)
[2023-04-27 19:01] LABS: ABO TYPING O; Antibody Screen NEGATIVE (NEGATIVE); RH TYPING POSITIVE
[2023-04-27] MEDS ORDERED: Sodium Chloride 0.9% 1000 ML 1,000 ML ONE (19:35)
--- NOTE | 2023-04-27 20:01 | XRAY ---
CLINICAL HISTORY:Symptomatic anemia COMPARISON:None TECHNIQUE:CT of the abdomen and pelvis was performed with axial images as well as sagittal and coronal reconstruction images without I/V contrast. Images were reviewed in soft tissue and bone window settings. FINDINGS: The liver isenlarged measuring 19.7 cm. Within the limitation of none IV contrast imaging there is no focal lesion seen in the liver. There is no intra or extrahepatic bile duct dilation. Calcified granuloma is seen in the right lobe of liver. Portal vein appears normal in caliber. Gallbladder absent, status post cholecystectomy. Unremarkable appearing pancreas. No pancreatic mass or ductal dilatation is seen. Unremarkable appearing spleen. Both adrenal glands are normal. Mild bilateral hydronephrosis is seen. Mesh repair for hernia ia seen in anterior abdominal wall. Urinary bladder unremarkable. Vaginal passery is seen in place. Atherosclerotic calcification of the abdominal aorta. IVC stent is seen in place. Surgical carol are seen in the ascending colon. No sutural stenosis or proximal dilatation seen. The stomach is partially collapsed and appears grossly unremarkable.Unremarkable appearing duodenum. Small Bowel and colon are non-distended . A calcific focus measuring 0.9 cm seen in the right colon could represents fecolith. No free air and no ascites. No free intraperitoneal air is seen.Few small air-filled outpouchings noted in the large bowel representing diverticulosis. No adjacent significant fat stranding identified to suggest acute diverticulitis. Visualized bones shows scolioitc deformity with severe degenerative changes. The visualized lung bases shows bilateral basal atelactasis in posterior basal segements. IMPRESSION: Hepatomegaly. Mild bilateral hydronephrosis is seen. Likely a 1 to 2 mm stone in right proximal ureter. Mesh repair for hernia is seen in anterior abdominal wall. IVC stent is seen in place. Vaginal passery is seen in place. Surgical carol are seen in the ascending colon. No sutural stenosis or proximal dilatation seen. The visualized lung bases shows bilateral basal atelactasis in posterior basal segements. Electronically Signed by: Gio Baldwin MD. (04/27/2023 18:58:55 OPTOMETRY TEACHER)
[2023-04-27 20:11] LABS: Slide Review 1 YES
[2023-04-27] MEDS ORDERED: TYLENOL 325 MG PO PRN (21:34)
[2023-04-27] MEDS ORDERED: Lasix 20 MG/2 ML IV SCH (21:34)
[2023-04-27] MEDS ORDERED: Sodium Chloride 0.9% 1000 ML 1,000 ML IV SCH (21:34)
--- NOTE | 2023-04-27 22:46 | PCM.HP ---
History of Present Illness - Chief Complaint Chief Complaint: Symptomatic anemia Date: 04/27/23 History of Present Illness: Ms. Montano is a 78 year-old female with HTN, HLD, DM2, DVT x 3 on Eliquis, and recently diagnosed anemia s/p multiple blood transfusions who presents with symptomatic anemia. She has been feeling short of breath and dizzy for the past two weeks, thus she had her blood drawn earlier today - she was sent to the ED based on her low H/H; admission H/H was 6.5/24.7. Imaging and other laboratory data was unremarkable. On my examination, she is resting comfortably with stable vital signs. - Review of Systems Constitutional: No Fever, No Chills Eyes: No Symptoms Ears, Nose, & Throat: No Symptoms Respiratory: Short Of Breath, No Cough Cardiac: No Chest Pain, No Edema, No Syncope Abdominal/Gastrointestinal: No Abdominal Pain, No Nausea, No Vomiting, No Diarrhea Genitourinary Symptoms: No Dysuria Musculoskeletal: No Back Pain, No Neck Pain Skin: No Rash Neurological: Dizziness, No Focal Weakness, No Sensory Changes Psychological: No Symptoms Endocrine: No Symptoms Hematologic/Lymphatic: No Symptoms Immunological/Allergic: No Symptoms Medications & Allergies Home Medications: Home Medication List Aspirin [Aspirin EC] 81 mg PO DAILY 08/18/16 [History Confirmed 04/27/23] Atenolol 50 mg [Tenormin 50 mg] 25 mg PO DAILY 08/18/16 [History Confirmed 04/27/23] Atorvastatin Calcium 40 mg PO HS 08/18/16 [History Confirmed 04/27/23] Metformin HCl 500 mg [Glucophage 500 MG] 500 mg PO BID 08/21/17 [History Confirmed 04/27/23] [place]-3 Fatty Acids/Fish Oil [Fish Oil 1,000 mg Capsule] 1 mg PO DAILY 04/07/21 [History Confirmed 04/27/23] Lisinopril 20 mg [Zestril 20 MG] 20 mg PO DAILY 07/26/21 [History Confirmed 04/27/23] Trazodone HCl 50 mg [Desyrel 50 mg] 75 mg PO HS 07/26/21 [History Confirmed 04/27/23] Rivaroxaban [Xarelto] 20 mg PO DAILY 01/10/22 [History Confirmed 04/27/23] Acetaminophen 500 mg [Tylenol Extra Strength 500 mg] 500 mg PO DAILY 01/17/23 [History Confirmed 04/27/23] Biotin 1 mg PO DAILY 01/17/23 [History Confirmed 04/27/23] Brimonidine Tartrate [Alphagan P] 5 ml OP DAILY 01/17/23 [History Confirmed 04/27/23] Latanoprost 2.5 ml OP DAILY 01/17/23 [History Confirmed 04/27/23] Magnesium Oxide [Magnesium] 250 mg PO DAILY 01/17/23 [History Confirmed 04/27/23] Melatonin 10 mg PO HS 01/17/23 [History Confirmed 04/27/23] Omeprazole 20 mg PO DAILY 01/17/23 [History Confirmed 04/27/23] Timolol [Betimol] 5 ml OP DAILY 01/17/23 [History Confirmed 04/27/23] Valerian Root 500 mg PO HS 01/17/23 [History Confirmed 04/27/23] Multivitamin/Iron/Folic Acid [Centrum Complete Multivit Tab] 2 tab PO DAILY 01/22/23 [History Confirmed 04/27/23] Allergies/Adverse Reactions: Allergies Allergy/AdvReac Type Severity Reaction Status Date / Time Penicillins Allergy Verified 04/27/23 16:29 codeine AdvReac Verified 04/27/23 16:29 metoclopramide HCl AdvReac Verified 04/27/23 16:29 [From Reglan] morphine AdvReac Verified 04/27/23 16:29 Sulfa (Sulfonamide AdvReac Verified 04/27/23 16:29 Antibiotics) - Past Medical History Past Medical History: Yes Neurological History: Peripheral Neuropathy, TIA ENT History: Cataracts Cardiac History: Deep Vein Thrombosis, Hypertension Respiratory History: No Pertinent History Endocrine Medical History: Diabetes Type II Musculoskelatal History: Arthritis, Fractures, Osteoporosis GI Medical History: GERD, Other History: Other Pyscho-Social History: Anxiety, Depression Reproductive Disorders: Other Comment: BECHETS. Hx IVC filter for DVT. L KNEE SURGERY. Pessiary. HX Kidney Stones, HX UTI,. hx colon resection - Past Surgical History Past Surgical History: Yes Neuro Surgical History: No Pertinent History Cardiac History: No Pertinent History Respiratory Surgery: No Pertinent History GI Surgical History: Appendectomy, Cholecystectomy, Colon Resection, Hernia Repair Genitourinary Surgical Hx: No Pertinent History Musculskeletal Surgical Hx: No Pertinent History Female Surgical History: Hysterectomy Other Surgical History: GASTRIC BYPASS - Social History Smoking Status: Never smoker Exposure to second hand smoke: No Alcohol: None Drug Use: none - Physical Exam Vital Signs: Vital Signs - 24 hr Temp Pulse Resp BP BP Pulse Ox 04/27/23 21:34 92 L 04/27/23 19:00 77 19 144/75 96 04/27/23 18:42 81 18 117/87 90 L 04/27/23 17:31 78 117/87 97 04/27/23 17:24 145/102 93 L 04/27/23 17:00 63 18 130/79 98 04/27/23 16:34 97.4 F 83 18 136/72 98 General Appearance: no apparent distress, alert Neurologic Exam: alert, oriented x 3, cooperative, normal mood/affect, nml cerebellar function, nml station & gait, sensation nml, No motor deficits Eye Exam: PERRL/EOMI, eyes nml inspection Ears, Nose, Throat Exam: normal ENT inspection, TMs normal, pharynx normal, moist mucous membranes Neck Exam: normal inspection, non-tender, supple, full range of motion Respiratory Exam: normal breath sounds, lungs clear, No respiratory distress Cardiovascular Exam: regular rate/rhythm, normal heart sounds, normal peripheral pulses Gastrointestinal/Abdomen Exam: soft, normal bowel sounds, No tenderness, No mass Back Exam: normal inspection, normal range of motion, No CVA tenderness, No vertebral tenderness Extremity Exam: normal inspection, normal range of motion, pelvis stable Skin Exam: normal color, warm, dry, No rash Lymphatic Exam: No adenopathy Results - Labs Lab/Micro Results: Lab Results-Last 24 Hours 04/27/23 04/27/23 04/27/23 Range/Units 16:40 16:40 16:40 WBC 7.8 (4.0-10.5) x10^3/uL RBC 3.81 L (4.1-5.4) x10^6/uL Hgb 6.5 L* (12.0-16.0) g/dL Hct 24.7 L (35-47) % MCV 64.8 L (78-100) fL MCH 17.1 L (26-32) pg MCHC 26.3 L (32-36) g/dL RDW 23.2 H (11.5-14.0) % Plt Count 276 (150-450) x10^3/uL MPV 9.0 (7.5-11.0) fL Gran % 50.8 (36.0-66.0) % Immature Gran % (Auto) 0.5 H (0.00-0.4) % Nucleat RBC Rel Count 0.0 (0.00-0.1) % Eos # (Auto) 0.36 (0-0.5) x10^3/uL Immature Gran # (Auto) 0.04 H (0.00-0.03) x10^3u/L Absolute Lymphs (auto) 2.73 (1.0-4.6) x10^3/uL Absolute Monos (auto) 0.67 (0.0-1.3) x10^3/uL Absolute Nucleated RBC 0.00 (0.00-0.01) x10^3u/L Lymphocytes % 34.9 (24.0-44.0) % Monocytes % 8.6 (0.0-12.0) % Eosinophils % 4.6 (0.00-5.0) % Basophils % 0.6 (0.0-0.4) % Absolute Granulocytes 3.98 (1.4-6.9) x10^3/uL Basophils # 0.05 (0-0.4) x10^3/uL PT 13.0 H (9.4-12.5) SECONDS INR 1.21 (0.8-3.0) Sodium 138 (137-145) mmol/L Potassium 4.9 (3.5-5.1) mmol/L Chloride 103 (98-107) mmol/L Carbon Dioxide 22 (22-30) mmol/L Anion Gap 17.4 H (5-15) MEQ/L BUN 23 H (7-17) mg/dL Creatinine 0.67 (0.52-1.04) mg/dL Estimated GFR > 60.0 ML/MIN Glucose 157 H (74-106) mg/dL Calcium 9.1 (8.4-10.2) mg/dL Total Bilirubin 0.60 (0.2-1.3) mg/dL AST 27 (14-36) U/L ALT 22 (0-35) U/L Alkaline Phosphatase 79 (38-126) U/L Serum Total Protein 7.7 (6.3-8.2) g/dL Albumin 4.3 (3.5-5.0) g/dL Slides for Path Review YES ABO Group Rh Factor Antibody Screen (NEGATIVE) Crossmatch (COMPATIBLE) 04/27/23 04/27/23 04/27/23 Range/Units 16:40 16:40 16:40 WBC (4.0-10.5) x10^3/uL RBC (4.1-5.4) x10^6/uL Hgb (12.0-16.0) g/dL Hct (35-47) % MCV (78-100) fL MCH (26-32) pg MCHC (32-36) g/dL RDW (11.5-14.0) % Plt Count (150-450) x10^3/uL MPV (7.5-11.0) fL Gran % (36.0-66.0) % Immature Gran % (Auto) (0.00-0.4) % Nucleat RBC Rel Count (0.00-0.1) % Eos # (Auto) (0-0.5) x10^3/uL Immature Gran # (Auto) (0.00-0.03) x10^3u/L Absolute Lymphs (auto) (1.0-4.6) x10^3/uL Absolute Monos (auto) (0.0-1.3) x10^3/uL Absolute Nucleated RBC (0.00-0.01) x10^3u/L Lymphocytes % (24.0-44.0) % Monocytes % (0.0-12.0) % Eosinophils % (0.00-5.0) % Basophils % (0.0-0.4) % Absolute Granulocytes (1.4-6.9) x10^3/uL Basophils # (0-0.4) x10^3/uL PT (9.4-12.5) SECONDS INR (0.8-3.0) Sodium (137-145) mmol/L Potassium (3.5-5.1) mmol/L Chloride (98-107) mmol/L Carbon Dioxide (22-30) mmol/L Anion Gap (5-15) MEQ/L BUN (7-17) mg/dL Creatinine (0.52-1.04) mg/dL Estimated GFR ML/MIN Glucose (74-106) mg/dL Calcium (8.4-10.2) mg/dL Total Bilirubin (0.2-1.3) mg/dL AST (14-36) U/L ALT (0-35) U/L Alkaline Phosphatase (38-126) U/L Serum Total Protein (6.3-8.2) g/dL Albumin (3.5-5.0) g/dL Slides for Path Review ABO Group O Rh Factor POSITIVE Antibody Screen NEGATIVE (NEGATIVE) Crossmatch COMPATIBLE COMPATIBLE COMPATIBLE (COMPATIBLE) - Radiology Impressions Radiology Exams & Impressions: Radiology Procedures Category Date Time Status ABDOMEN AND PELVIS W/0 CONTRAS [CT] Stat Exams 04/27/23 17:14 Completed Assessment/Plan (1) Symptomatic anemia Current Visit: Yes Status: Acute Assessment & Plan: ASSESSMENT 1. Symptomatic Anemia/Acute on Chronic Anemia 2. Hypertension 3. Hyperlipidemia 4. Type II Diabetes Mellitus 5. Deep Vein Thrombosis x 3 on Eliquis PLAN 1. Transfuse 2U PRBC 2. She has had an extensive work-up with endoscopy with no source of bleeding isolated; she continues getting periodic blood transfusions 3. Consideration for holding xarelto; would recommend Heme-Onc referral The enterity of this encounter was done via telemedicine Williams Cordero MD Pulmonary and Critical Care Medicine Code(s): D64.9 - ANEMIA, UNSPECIFIED Telemedicine Encounter - Telemedicine Encounter Telemedicine Encounter: The entirety of this encounter was performed via Telemedicine"
[2023-04-27] MEDS ORDERED: Sodium Chloride 0.9% 500 ML 500 ML IV ONE (22:54)
[2023-04-27 23:09] LABS: CROSS MATCH (PRBC) COMPATIBLE (COMPATIBLE)
[2023-04-27] MEDS ORDERED: DESYREL 50 MG ONE (23:55)
[2023-04-27] MEDS ORDERED: ZOCOR 20MG ONE (23:56)
[2023-04-27] MEDS ORDERED: MELATONIN PO ONE (23:56)
[2023-04-28] MEDS ORDERED: DESYREL 50 MG ONE (00:05)
[2023-04-28 06:49] LABS: Absolute Neutrophil Ct (ANC) 3.45 x10^3/uL (1.4-6.9); BASOPHIL % 0.6 % (0.0-0.4); Basophil (Absolute #) 0.04 x10^3/uL (0-0.4); Eosinophil % 5.8 % (0.00-5.0); Eosinophil (Absolute #) 0.41 x10^3/uL (0-0.5); Hematocrit 32.3 % (35-47); Hemoglobin 8.9 g/dL (12.0-16.0); IMMATURE GRAN # 0.03 x10^3u/L (0.00-0.03); IMMATURE GRAN % 0.4 % (0.00-0.4); Lymphocyte (Absolute #) 2.51 x10^3/uL (1.0-4.6); Lymphocytes % 35.4 % (24.0-44.0); Mean Cell Volume 70.8 fL (78-100); Mean Corpuscular Hemoglobin 19.5 pg (26-32); Mean Corpuscular Hgb Concent. 27.6 g/dL (32-36); Mean Platelet Volume 8.5 fL (7.5-11.0); Monocyte (Absolute #) 0.66 x10^3/uL (0.0-1.3); Monocytes % 9.3 % (0.0-12.0); Neutrophil % 48.5 % (36.0-66.0); Platelet Count 244 x10^3/uL (150-450); Red Blood Count 4.56 x10^6/uL (4.1-5.4); Red Cell Distribution Width 26.6 % (11.5-14.0); White Blood Count 7.1 x10^3/uL (4.0-10.5)
[2023-04-28 07:13] LABS: ALBUMIN 4.3 g/dL (3.5-5.0); ALKALINE PHOSPHATASE 63 U/L (38-126); ANION GAP 17.1 MEQ/L (5-15); BLOOD UREA NITROGEN 24 mg/dL (7-17); CHLORIDE 103 mmol/L (98-107); Carbon Dioxide 25 mmol/L (22-30); EST GLOMERULAR FILTRATION RATE > 60.0 ML/MIN; Glucose 132 mg/dL (74-106); NT PRO BNPII 232 pg/mL (<300); Potassium 4.5 mmol/L (3.5-5.1); SGOT/AST 26 U/L (14-36); SGPT/ALT 23 U/L (0-35); SODIUM 140 mmol/L (137-145); Total Protein 7.5 g/dL (6.3-8.2)
[2023-04-28 07:33] VITALS: RESP 17; TEMP 97.8
[2023-04-28] MEDS ORDERED: TENORMIN 50 MG PO SCH (10:00)
[2023-04-28] MEDS ORDERED: Glucophage 500 MG PO SCH ×2 (10:00→17:00)
[2023-04-28] MEDS ORDERED: Zestril 20 MG PO SCH (10:00)
[2023-04-28] MEDS ORDERED: Protonix 40MG Tablet PO SCH (10:00)
[2023-04-28] MEDS ORDERED: NON-FORMULARY ITEM (Omeprazole [Omeprazole] 20 MG Capsule.Dr) PO SCH (10:00)
[2023-04-28 10:53] LABS: Slide Review 1 YES
[2023-04-28 12:00] VITALS: BP 139/70; PULSE 72; O2SAT 92
--- NOTE | 2023-04-28 12:51 | PCM.DS ---
Discharge Summary Date of Admission: 04/27/23 21:27 Date of Discharge: 04/28/23 Admitting Physician: RAUL BARRIENTOS MD Primary Care Provider: JOSE DANIEL ANGLIN <LEONARDO SANCHEZ - Last Filed: 04/28/23 12:43> Date of Admission: 04/27/23 21:27 Date of Discharge: 04/28/23 Admitting Physician: RAUL BARRIENTOS MD Primary Care Provider: JOSE DANIEL ANGLIN <KYLE WOO - Last Filed: 04/28/23 13:11> Allergies <LEONARDO SANCHEZ - Last Filed: 04/28/23 12:43> <KYLE WOO - Last Filed: 04/28/23 13:11> Allergies Penicillins Allergy (Verified 04/27/23 16:29) codeine Adverse Reaction (Verified 04/27/23 16:29) metoclopramide HCl [From Reglan] Adverse Reaction (Verified 04/27/23 16:29) morphine Adverse Reaction (Verified 04/27/23 16:29) SEDATED Sulfa (Sulfonamide Antibiotics) Adverse Reaction (Verified 04/27/23 16:29) Hospital Summary - Hospital Course Hospital Course: Ms. 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 She was admitted for anemia. She has a known dx of anemia and was to see hematology this past week but her transportation feel through. She reports some intermittent dark stools but none recently. She reports having an EGD and colo noscopy last year but results were inconclusive. She had 2 blood transfusions last night for symptomatic anemia. She has been feeling short of breath and dizzy for the past two weeks. Imaging and other laboratory data were otherwise unremarkable. On my examination, she is resting comfortably with stable vital signs. She is feeling much better this morning and would like to go home. She plan to reschedule her appointment with hematology for f/u. Plan is to hold Xarelto as risk outweigh the benefits at this time. She denies any other concerns at this time. - Vitals & Intake/Output Vital Signs: Vital Signs Temperature 97.8 F 04/28/23 11:57 Pulse Rate 72 04/28/23 11:57 Respiratory Rate 17 04/28/23 11:57 Blood Pressure 139/70 04/28/23 11:57 O2 Sat by Pulse Oximetry 92 L 04/28/23 11:57 Intake & Output: Intake & Output 04/26/23 04/27/23 04/28/23 04/29/23 11:59 11:59 11:59 11:59 Intake Total 1293 Balance 1293 Weight 59.1 kg - Lab Result Diagrams: 04/28/23 06:45 04/28/23 06:45 Lab Results-Last 24 Hrs: Lab Results-Last 24 Hours 04/27/23 04/27/23 04/27/23 Range/Units 16:40 16:40 16:40 WBC 7.8 (4.0-10.5) x10^3/uL RBC 3.81 L (4.1-5.4) x10^6/uL Hgb 6.5 L* (12.0-16.0) g/dL Hct 24.7 L (35-47) % MCV 64.8 L (78-100) fL MCH 17.1 L (26-32) pg MCHC 26.3 L (32-36) g/dL RDW 23.2 H (11.5-14.0) % Plt Count 276 (150-450) x10^3/uL MPV 9.0 (7.5-11.0) fL Gran % 50.8 (36.0-66.0) % Immature Gran % (Auto) 0.5 H (0.00-0.4) % Nucleat RBC Rel Count 0.0 (0.00-0.1) % Eos # (Auto) 0.36 (0-0.5) x10^3/uL Immature Gran # (Auto) 0.04 H (0.00-0.03) x10^3u/L Absolute Lymphs (auto) 2.73 (1.0-4.6) x10^3/uL Absolute Monos (auto) 0.67 (0.0-1.3) x10^3/uL Absolute Nucleated RBC 0.00 (0.00-0.01) x10^3u/L Lymphocytes % 34.9 (24.0-44.0) % Monocytes % 8.6 (0.0-12.0) % Eosinophils % 4.6 (0.00-5.0) % Basophils % 0.6 (0.0-0.4) % Absolute Granulocytes 3.98 (1.4-6.9) x10^3/uL Basophils # 0.05 (0-0.4) x10^3/uL PT 13.0 H (9.4-12.5) SECONDS INR 1.21 (0.8-3.0) Sodium 138 (137-145) mmol/L Potassium 4.9 (3.5-5.1) mmol/L Chloride 103 (98-107) mmol/L Carbon Dioxide 22 (22-30) mmol/L Anion Gap 17.4 H (5-15) MEQ/L BUN 23 H (7-17) mg/dL Creatinine 0.67 (0.52-1.04) mg/dL Estimated GFR > 60.0 ML/MIN Glucose 157 H (74-106) mg/dL POC Glucometer (74 to 106) mg/dL Calcium 9.1 (8.4-10.2) mg/dL Total Bilirubin 0.60 (0.2-1.3) mg/dL AST 27 (14-36) U/L ALT 22 (0-35) U/L Alkaline Phosphatase 79 (38-126) U/L NT-Pro-B Natriuret Pep (<300) pg/mL Serum Total Protein 7.7 (6.3-8.2) g/dL Albumin 4.3 (3.5-5.0) g/dL Slides for Path Review YES ABO Group Rh Factor Antibody Screen (NEGATIVE) Crossmatch (COMPATIBLE) 04/27/23 04/27/23 04/27/23 Range/Units 16:40 16:40 16:40 WBC (4.0-10.5) x10^3/uL RBC (4.1-5.4) x10^6/uL Hgb (12.0-16.0) g/dL Hct (35-47) % MCV (78-100) fL MCH (26-32) pg MCHC (32-36) g/dL RDW (11.5-14.0) % Plt Count (150-450) x10^3/uL MPV (7.5-11.0) fL Gran % (36.0-66.0) % Immature Gran % (Auto) (0.00-0.4) % Nucleat RBC Rel Count (0.00-0.1) % Eos # (Auto) (0-0.5) x10^3/uL Immature Gran # (Auto) (0.00-0.03) x10^3u/L Absolute Lymphs (auto) (1.0-4.6) x10^3/uL Absolute Monos (auto) (0.0-1.3) x10^3/uL Absolute Nucleated RBC (0.00-0.01) x10^3u/L Lymphocytes % (24.0-44.0) % Monocytes % (0.0-12.0) % Eosinophils % (0.00-5.0) % Basophils % (0.0-0.4) % Absolute Granulocytes (1.4-6.9) x10^3/uL Basophils # (0-0.4) x10^3/uL PT (9.4-12.5) SECONDS INR (0.8-3.0) Sodium (137-145) mmol/L Potassium (3.5-5.1) mmol/L Chloride (98-107) mmol/L Carbon Dioxide (22-30) mmol/L Anion Gap (5-15) MEQ/L BUN (7-17) mg/dL Creatinine (0.52-1.04) mg/dL Estimated GFR ML/MIN Glucose (74-106) mg/dL POC Glucometer (74 to 106) mg/dL Calcium (8.4-10.2) mg/dL Total Bilirubin (0.2-1.3) mg/dL AST (14-36) U/L ALT (0-35) U/L Alkaline Phosphatase (38-126) U/L NT-Pro-B Natriuret Pep (<300) pg/mL Serum Total Protein (6.3-8.2) g/dL Albumin (3.5-5.0) g/dL Slides for Path Review ABO Group O Rh Factor POSITIVE Antibody Screen NEGATIVE (NEGATIVE) Crossmatch COMPATIBLE COMPATIBLE COMPATIBLE (COMPATIBLE) 04/28/23 04/28/23 04/28/23 Range/Units 06:45 06:45 07:14 WBC 7.1 (4.0-10.5) x10^3/uL RBC 4.56 (4.1-5.4) x10^6/uL Hgb 8.9 L D (12.0-16.0) g/dL Hct 32.3 L (35-47) % MCV 70.8 L D (78-100) fL MCH 19.5 L (26-32) pg MCHC 27.6 L (32-36) g/dL RDW 26.6 H (11.5-14.0) % Plt Count 244 (150-450) x10^3/uL MPV 8.5 (7.5-11.0) fL Gran % 48.5 (36.0-66.0) % Immature Gran % (Auto) 0.4 (0.00-0.4) % Nucleat RBC Rel Count 0.0 (0.00-0.1) % Eos # (Auto) 0.41 (0-0.5) x10^3/uL Immature Gran # (Auto) 0.03 (0.00-0.03) x10^3u/L Absolute Lymphs (auto) 2.51 (1.0-4.6) x10^3/uL Absolute Monos (auto) 0.66 (0.0-1.3) x10^3/uL Absolute Nucleated RBC 0.00 (0.00-0.01) x10^3u/L Lymphocytes % 35.4 (24.0-44.0) % Monocytes % 9.3 (0.0-12.0) % Eosinophils % 5.8 H (0.00-5.0) % Basophils % 0.6 (0.0-0.4) % Absolute Granulocytes 3.45 (1.4-6.9) x10^3/uL Basophils # 0.04 (0-0.4) x10^3/uL PT (9.4-12.5) SECONDS INR (0.8-3.0) Sodium 140 (137-145) mmol/L Potassium 4.5 (3.5-5.1) mmol/L Chloride 103 (98-107) mmol/L Carbon Dioxide 25 (22-30) mmol/L Anion Gap 17.1 H (5-15) MEQ/L BUN 24 H (7-17) mg/dL Creatinine 0.70 (0.52-1.04) mg/dL Estimated GFR > 60.0 ML/MIN Glucose 132 H (74-106) mg/dL POC Glucometer 129 H (74 to 106) mg/dL Calcium 9.0 (8.4-10.2) mg/dL Total Bilirubin 0.70 (0.2-1.3) mg/dL AST 26 (14-36) U/L ALT 23 (0-35) U/L Alkaline Phosphatase 63 (38-126) U/L NT-Pro-B Natriuret Pep 232 (<300) pg/mL Serum Total Protein 7.5 (6.3-8.2) g/dL Albumin 4.3 (3.5-5.0) g/dL Slides for Path Review YES ABO Group Rh Factor Antibody Screen (NEGATIVE) Crossmatch (COMPATIBLE) 04/28/23 Range/Units 11:32 WBC (4.0-10.5) x10^3/uL RBC (4.1-5.4) x10^6/uL Hgb (12.0-16.0) g/dL Hct (35-47) % MCV (78-100) fL MCH (26-32) pg MCHC (32-36) g/dL RDW (11.5-14.0) % Plt Count (150-450) x10^3/uL MPV (7.5-11.0) fL Gran % (36.0-66.0) % Immature Gran % (Auto) (0.00-0.4) % Nucleat RBC Rel Count (0.00-0.1) % Eos # (Auto) (0-0.5) x10^3/uL Immature Gran # (Auto) (0.00-0.03) x10^3u/L Absolute Lymphs (auto) (1.0-4.6) x10^3/uL Absolute Monos (auto) (0.0-1.3) x10^3/uL Absolute Nucleated RBC (0.00-0.01) x10^3u/L Lymphocytes % (24.0-44.0) % Monocytes % (0.0-12.0) % Eosinophils % (0.00-5.0) % Basophils % (0.0-0.4) % Absolute Granulocytes (1.4-6.9) x10^3/uL Basophils # (0-0.4) x10^3/uL PT (9.4-12.5) SECONDS INR (0.8-3.0) Sodium (137-145) mmol/L Potassium (3.5-5.1) mmol/L Chloride (98-107) mmol/L Carbon Dioxide (22-30) mmol/L Anion Gap (5-15) MEQ/L BUN (7-17) mg/dL Creatinine (0.52-1.04) mg/dL Estimated GFR ML/MIN Glucose (74-106) mg/dL POC Glucometer 177 H (74 to 106) mg/dL Calcium (8.4-10.2) mg/dL Total Bilirubin (0.2-1.3) mg/dL AST (14-36) U/L ALT (0-35) U/L Alkaline Phosphatase (38-126) U/L NT-Pro-B Natriuret Pep (<300) pg/mL Serum Total Protein (6.3-8.2) g/dL Albumin (3.5-5.0) g/dL Slides for Path Review ABO Group Rh Factor Antibody Screen (NEGATIVE) Crossmatch (COMPATIBLE) Micro Results-Entire Visit: Accuchecks Date 04/28/23 Time 11:56 - Radiology Exams Ordered Rad Exams-Entire Visit: Radiology Procedures Category Date Time Status ABDOMEN AND PELVIS W/0 CONTRAS [CT] Stat Exams 04/27/23 17:14 Completed - Procedures and Test Procedures and Tests throughout Hospitalization: Therapy Orders & Screens 04/28/23 06:00 Oxygen Oxymizer LPM 2 lpm Comment: Diagnosis: Symptomatic anemia <LEONARDO SANCHEZ - Last Filed: 04/28/23 12:43> - Vitals & Intake/Output Vital Signs: Vital Signs Temperature 97.8 F 04/28/23 11:57 Pulse Rate 72 04/28/23 11:57 Respiratory Rate 17 04/28/23 11:57 Blood Pressure 139/70 04/28/23 11:57 O2 Sat by Pulse Oximetry 92 L 04/28/23 11:57 Intake & Output: Intake & Output 04/26/23 04/27/23 04/28/23 04/29/23 11:59 11:59 11:59 11:59 Intake Total 1293 Balance 1293 Weight 59.1 kg - Lab Result Diagrams: 04/28/23 06:45 04/28/23 06:45 Lab Results-Last 24 Hrs: Lab Results-Last 24 Hours 04/27/23 04/27/23 04/27/23 Range/Units 16:40 16:40 16:40 WBC 7.8 (4.0-10.5) x10^3/uL RBC 3.81 L (4.1-5.4) x10^6/uL Hgb 6.5 L* (12.0-16.0) g/dL Hct 24.7 L (35-47) % MCV 64.8 L (78-100) fL MCH 17.1 L (26-32) pg MCHC 26.3 L (32-36) g/dL RDW 23.2 H (11.5-14.0) % Plt Count 276 (150-450) x10^3/uL MPV 9.0 (7.5-11.0) fL Gran % 50.8 (36.0-66.0) % Immature Gran % (Auto) 0.5 H (0.00-0.4) % Nucleat RBC Rel Count 0.0 (0.00-0.1) % Eos # (Auto) 0.36 (0-0.5) x10^3/uL Immature Gran # (Auto) 0.04 H (0.00-0.03) x10^3u/L Absolute Lymphs (auto) 2.73 (1.0-4.6) x10^3/uL Absolute Monos (auto) 0.67 (0.0-1.3) x10^3/uL Absolute Nucleated RBC 0.00 (0.00-0.01) x10^3u/L Lymphocytes % 34.9 (24.0-44.0) % Monocytes % 8.6 (0.0-12.0) % Eosinophils % 4.6 (0.00-5.0) % Basophils % 0.6 (0.0-0.4) % Absolute Granulocytes 3.98 (1.4-6.9) x10^3/uL Basophils # 0.05 (0-0.4) x10^3/uL PT 13.0 H (9.4-12.5) SECONDS INR 1.21 (0.8-3.0) Sodium 138 (137-145) mmol/L Potassium 4.9 (3.5-5.1) mmol/L Chloride 103 (98-107) mmol/L Carbon Dioxide 22 (22-30) mmol/L Anion Gap 17.4 H (5-15) MEQ/L BUN 23 H (7-17) mg/dL Creatinine 0.67 (0.52-1.04) mg/dL Estimated GFR > 60.0 ML/MIN Glucose 157 H (74-106) mg/dL POC Glucometer (74 to 106) mg/dL Calcium 9.1 (8.4-10.2) mg/dL Total Bilirubin 0.60 (0.2-1.3) mg/dL AST 27 (14-36) U/L ALT 22 (0-35) U/L Alkaline Phosphatase 79 (38-126) U/L NT-Pro-B Natriuret Pep (<300) pg/mL Serum Total Protein 7.7 (6.3-8.2) g/dL Albumin 4.3 (3.5-5.0) g/dL Slides for Path Review YES ABO Group Rh Factor Antibody Screen (NEGATIVE) Crossmatch (COMPATIBLE) 04/27/23 04/27/23 04/27/23 Range/Units 16:40 16:40 16:40 WBC (4.0-10.5) x10^3/uL RBC (4.1-5.4) x10^6/uL Hgb (12.0-16.0) g/dL Hct (35-47) % MCV (78-100) fL MCH (26-32) pg MCHC (32-36) g/dL RDW (11.5-14.0) % Plt Count (150-450) x10^3/uL MPV (7.5-11.0) fL Gran % (36.0-66.0) % Immature Gran % (Auto) (0.00-0.4) % Nucleat RBC Rel Count (0.00-0.1) % Eos # (Auto) (0-0.5) x10^3/uL Immature Gran # (Auto) (0.00-0.03) x10^3u/L Absolute Lymphs (auto) (1.0-4.6) x10^3/uL Absolute Monos (auto) (0.0-1.3) x10^3/uL Absolute Nucleated RBC (0.00-0.01) x10^3u/L Lymphocytes % (24.0-44.0) % Monocytes % (0.0-12.0) % Eosinophils % (0.00-5.0) % Basophils % (0.0-0.4) % Absolute Granulocytes (1.4-6.9) x10^3/uL Basophils # (0-0.4) x10^3/uL PT (9.4-12.5) SECONDS INR (0.8-3.0) Sodium (137-145) mmol/L Potassium (3.5-5.1) mmol/L Chloride (98-107) mmol/L Carbon Dioxide (22-30) mmol/L Anion Gap (5-15) MEQ/L BUN (7-17) mg/dL Creatinine (0.52-1.04) mg/dL Estimated GFR ML/MIN Glucose (74-106) mg/dL POC Glucometer (74 to 106) mg/dL Calcium (8.4-10.2) mg/dL Total Bilirubin (0.2-1.3) mg/dL AST (14-36) U/L ALT (0-35) U/L Alkaline Phosphatase (38-126) U/L NT-Pro-B Natriuret Pep (<300) pg/mL Serum Total Protein (6.3-8.2) g/dL Albumin (3.5-5.0) g/dL Slides for Path Review ABO Group O Rh Factor POSITIVE Antibody Screen NEGATIVE (NEGATIVE) Crossmatch COMPATIBLE COMPATIBLE COMPATIBLE (COMPATIBLE) 04/28/23 04/28/23 04/28/23 Range/Units 06:45 06:45 07:14 WBC 7.1 (4.0-10.5) x10^3/uL RBC 4.56 (4.1-5.4) x10^6/uL Hgb 8.9 L D (12.0-16.0) g/dL Hct 32.3 L (35-47) % MCV 70.8 L D (78-100) fL MCH 19.5 L (26-32) pg MCHC 27.6 L (32-36) g/dL RDW 26.6 H (11.5-14.0) % Plt Count 244 (150-450) x10^3/uL MPV 8.5 (7.5-11.0) fL Gran % 48.5 (36.0-66.0) % Immature Gran % (Auto) 0.4 (0.00-0.4) % Nucleat RBC Rel Count 0.0 (0.00-0.1) % Eos # (Auto) 0.41 (0-0.5) x10^3/uL Immature Gran # (Auto) 0.03 (0.00-0.03) x10^3u/L Absolute Lymphs (auto) 2.51 (1.0-4.6) x10^3/uL Absolute Monos (auto) 0.66 (0.0-1.3) x10^3/uL Absolute Nucleated RBC 0.00 (0.00-0.01) x10^3u/L Lymphocytes % 35.4 (24.0-44.0) % Monocytes % 9.3 (0.0-12.0) % Eosinophils % 5.8 H (0.00-5.0) % Basophils % 0.6 (0.0-0.4) % Absolute Granulocytes 3.45 (1.4-6.9) x10^3/uL Basophils # 0.04 (0-0.4) x10^3/uL PT (9.4-12.5) SECONDS INR (0.8-3.0) Sodium 140 (137-145) mmol/L Potassium 4.5 (3.5-5.1) mmol/L Chloride 103 (98-107) mmol/L Carbon Dioxide 25 (22-30) mmol/L Anion Gap 17.1 H (5-15) MEQ/L BUN 24 H (7-17) mg/dL Creatinine 0.70 (0.52-1.04) mg/dL Estimated GFR > 60.0 ML/MIN Glucose 132 H (74-106) mg/dL POC Glucometer 129 H (74 to 106) mg/dL Calcium 9.0 (8.4-10.2) mg/dL Total Bilirubin 0.70 (0.2-1.3) mg/dL AST 26 (14-36) U/L ALT 23 (0-35) U/L Alkaline Phosphatase 63 (38-126) U/L NT-Pro-B Natriuret Pep 232 (<300) pg/mL Serum Total Protein 7.5 (6.3-8.2) g/dL Albumin 4.3 (3.5-5.0) g/dL Slides for Path Review YES ABO Group Rh Factor Antibody Screen (NEGATIVE) Crossmatch (COMPATIBLE) 04/28/23 Range/Units 11:32 WBC (4.0-10.5) x10^3/uL RBC (4.1-5.4) x10^6/uL Hgb (12.0-16.0) g/dL Hct (35-47) % MCV (78-100) fL MCH (26-32) pg MCHC (32-36) g/dL RDW (11.5-14.0) % Plt Count (150-450) x10^3/uL MPV (7.5-11.0) fL Gran % (36.0-66.0) % Immature Gran % (Auto) (0.00-0.4) % Nucleat RBC Rel Count (0.00-0.1) % Eos # (Auto) (0-0.5) x10^3/uL Immature Gran # (Auto) (0.00-0.03) x10^3u/L Absolute Lymphs (auto) (1.0-4.6) x10^3/uL Absolute Monos (auto) (0.0-1.3) x10^3/uL Absolute Nucleated RBC (0.00-0.01) x10^3u/L Lymphocytes % (24.0-44.0) % Monocytes % (0.0-12.0) % Eosinophils % (0.00-5.0) % Basophils % (0.0-0.4) % Absolute Granulocytes (1.4-6.9) x10^3/uL Basophils # (0-0.4) x10^3/uL PT (9.4-12.5) SECONDS INR (0.8-3.0) Sodium (137-145) mmol/L Potassium (3.5-5.1) mmol/L Chloride (98-107) mmol/L Carbon Dioxide (22-30) mmol/L Anion Gap (5-15) MEQ/L BUN (7-17) mg/dL Creatinine (0.52-1.04) mg/dL Estimated GFR ML/MIN Glucose (74-106) mg/dL POC Glucometer 177 H (74 to 106) mg/dL Calcium (8.4-10.2) mg/dL Total Bilirubin (0.2-1.3) mg/dL AST (14-36) U/L ALT (0-35) U/L Alkaline Phosphatase (38-126) U/L NT-Pro-B Natriuret Pep (<300) pg/mL Serum Total Protein (6.3-8.2) g/dL Albumin (3.5-5.0) g/dL Slides for Path Review ABO Group Rh Factor Antibody Screen (NEGATIVE) Crossmatch (COMPATIBLE) Micro Results-Entire Visit: Accuchecks Date 04/28/23 Time 11:56 - Radiology Exams Ordered Rad Exams-Entire Visit: Radiology Procedures Category Date Time Status ABDOMEN AND PELVIS W/0 CONTRAS [CT] Stat Exams 04/27/23 17:14 Completed - Procedures and Test Procedures and Tests throughout Hospitalization: Therapy Orders & Screens 04/28/23 06:00 Oxygen Oxymizer LPM 2 lpm Comment: Diagnosis: Symptomatic anemia <KYLE WOO - Last Filed: 04/28/23 13:11> Discharge Exam General Appearance: no apparent distress, alert, thin Neurologic Exam: alert, oriented x 3, cooperative, normal mood/affect, nml cerebellar function, sensation nml, No motor deficits Eye Exam: PERRL, EOMI, eyes nml inspection Ears, Nose, Throat Exam: normal ENT inspection, pharynx normal, moist mucous membranes Neck Exam: normal inspection, non-tender, supple, full range of motion Respiratory Exam: normal breath sounds, lungs clear, No respiratory distress Cardiovascular Exam: regular rate/rhythm, normal heart sounds Gastrointestinal/Abdomen Exam: soft, No tenderness, No mass Pelvic Exam: deferred Rectal Exam: deferred Back Exam: normal inspection, normal range of motion, No CVA tenderness, No vertebral tenderness Extremity Exam: normal inspection, normal range of motion Skin Exam: normal color, warm, dry <LEONARDO SANCHEZ - Last Filed: 04/28/23 12:43> Final Diagnosis/Problem List - Final Discharge Diagnosis/Problem (1) Symptomatic anemia Current Visit: Yes Status: Acute Assessment & Plan: - Hgb 6.5 on admission - Hgb 8.9 this morning - Pt no longer symptomatic - F/u with hematology OP Code(s): D64.9 - ANEMIA, UNSPECIFIED (2) Transfusion of blood during current hospitalisation Current Visit: Yes Status: Acute Assessment & Plan: - 2 units of PRBC Code(s): PNG3271 - (3) Weakness Current Visit: Yes Status: Acute Assessment & Plan: - resolved D/C plan home Code(s): R53.1 - WEAKNESS <LEONARDO SANCHEZ - Last Filed: 04/28/23 12:43> - Discharge Discharge Date: 04/28/23 <LEONARDO SANCHEZ - Last Filed: 04/28/23 12:43> <KYLE WOO - Last Filed: 04/28/23 13:11> - Discharge Disposition: Home, Self-Care Condition: Stable Prescriptions: Continue Atorvastatin Calcium 40 mg PO HS Aspirin [Aspirin EC] 81 mg PO DAILY Atenolol 50 mg [Tenormin 50 mg] 25 mg PO DAILY Metformin HCl 500 mg [Glucophage 500 MG] 500 mg PO BID [place]-3 Fatty Acids/Fish Oil [Fish Oil 1,000 mg Capsule] 1 mg PO DAILY Trazodone HCl 50 mg [Desyrel 50 mg] 75 mg PO HS Lisinopril 20 mg [Zestril 20 MG] 20 mg PO DAILY Acetaminophen 500 mg [Tylenol Extra Strength 500 mg] 500 mg PO DAILY Omeprazole 20 mg PO DAILY Magnesium Oxide [Magnesium] 250 mg PO DAILY Biotin 1 mg PO DAILY Timolol [Betimol] 5 ml OP DAILY Latanoprost 2.5 ml OP DAILY Brimonidine Tartrate [Alphagan P] 5 ml OP DAILY Melatonin 10 mg PO HS Valerian Root 500 mg PO HS Multivitamin/Iron/Folic Acid [Centrum Complete Multivit Tab] 2 tab PO DAILY Discontinued Rivaroxaban [Xarelto] 20 mg PO DAILY Instructions: Normocytic Normochromic Anemia (DC) Follow up with: JOSE DANIEL ANGLIN, [facility] [Primary Care Provider] - Call for Appointment (CALL SUNDAY FOR A 1 WEEK FOLLOW-UP APPOINTMENT) Forms: Discharge Instructions RITCHIE Encounter - RITCHIE Encounter Attestation RITCHIE Encounter Attestation: "IhavepersonallyseenandexaminedFYAO ROLLE andhavediscussed pertinent aspects of their care with Leonardo Sanchez,and agree with the history, physical exam (any modifications based on my personal exam will be noted below), assessment, and plan as outlined in original note. Please see immediately below for my summary of findings and additional assessment and plan along with any meaningful corrections/explanations to the Subjective/Objective portions of the RITCHIE note will be noted." 78-year-old woman with history of hypertension, diabetes, prior DVT on Xarelto with history of prior IVC filter 8 years ago, who presents with recurrent symptomatic anemia. Has had prior endoscopic work-up without source of bleeding found. Admitted with hemoglobin 6.9, responded immediately to 2 units, follow- up hemoglobin 8.9. Patient's last DVT was in the left leg 15 months ago. 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 However, she has recurrent symptomatic anemia of unknown cause. She has microcytosis, and iron deficiency (based on labs from prior admission), but was not started on oral iron because of her severe gastritis. At this point, the risk of recurrent anemia appears to be higher than the risk of recur rent DVT, so we will recommend stopping her Xarelto. She missed her outpatient consultation with hematology last week due to lack of transportation; this will be rescheduled, and they can reevaluate her causes of anemia, and likely start IV iron. My portion of the encounter took place via telemedicine. <KYLE WOO - Last Filed: 04/28/23 13:11>
[2023-04-28] MEDS ORDERED: MELATONIN 10 MG PO SCH (22:00)
[2023-04-28] MEDS ORDERED: DESYREL 50 MG PO SCH (22:00)
[2023-04-28] MEDS ORDERED: LIPITOR 40MG PO SCH (22:00)
[2023-04-28] MEDS ORDERED: ZOCOR 20MG PO SCH (22:00)
[2023-04-28] MEDS ORDERED: Desyrel 150 MG PO SCH (22:00)
[2023-04-28] MEDS ORDERED: MELATONIN PO SCH (22:00)
== END 2023-04-28 13:34 | disposition home or self-care (01) ==
LOC: ED 16:08 → MED SURG 21:27
PROVIDERS: ADMIT Internal Medicine Critical Care Medicine; ATTEND Internal Medicine Critical Care Medicine
DX: D64.9 Anemia, unspecified (principal); R53.1 Weakness; I10 Essential (primary) hypertension; E78.5 Hyperlipidemia, unspecified; E11.9 Type 2 diabetes mellitus without complications; Z79.01 Long term (current) use of anticoagulants; Z79.899 Other long term (current) drug therapy; Z86.718 Personal history of other venous thrombosis and embolism; Z20.828 Contact with and (suspected) exposure to other viral communicable diseases; Z98.84 Bariatric surgery status
CPT/HCPCS: 36000; 36415; 36430; 74176; 80053; 82947; 83880; 85025; 85610; 86850; 86900; 86901; 86922; 93268; 94760; 99284; G0378; P9016; Q3014; J1940; A9270-GY

== ENCOUNTER 2023-07-05 15:56 | Emergency (ER) | payer MEDICARE, BC ==
[2023-07-05 16:23] VITALS: TEMP 98.9
[2023-07-05 16:37] LABS: Absolute Neutrophil Ct (ANC) 3.94 x10^3/uL (1.4-6.9); BASOPHIL % 0.8 % (0.0-0.4); Basophil (Absolute #) 0.06 x10^3/uL (0-0.4); Eosinophil % 3.8 % (0.00-5.0); Hemoglobin 13.3 g/dL (12.0-16.0); IMMATURE GRAN # 0.03 x10^3u/L (0.00-0.03); IMMATURE GRAN % 0.4 % (0.00-0.4); Lymphocytes % 36.8 % (24.0-44.0); Mean Cell Volume 82.4 fL (78-100); Mean Corpuscular Hemoglobin 24.4 pg (26-32); Mean Corpuscular Hgb Concent. 29.6 g/dL (32-36); Monocyte (Absolute #) 0.66 x10^3/uL (0.0-1.3); Monocytes % 8.4 % (0.0-12.0); Neutrophil % 49.8 % (36.0-66.0); Platelet Count 248 x10^3/uL (150-450); Red Blood Count 5.46 x10^6/uL (4.1-5.4); White Blood Count 7.9 x10^3/uL (4.0-10.5)
[2023-07-05] MEDS ORDERED: Sodium Chloride 0.9% 1000 ML 1,000 ML IV STA (16:40)
[2023-07-05] MEDS ORDERED: Sodium Chloride 0.9% 1000 ML 1,000 ML ONE (16:43)
[2023-07-05 16:45] LABS: ALBUMIN 4.8 g/dL (3.5-5.0); ALKALINE PHOSPHATASE 115 U/L (38-126); AMYLASE 65 U/L (30-110); ANION GAP 18.5 MEQ/L (5-15); BLOOD UREA NITROGEN 23 mg/dL (7-17); CHLORIDE 102 mmol/L (98-107); Calcium 9.8 mg/dL (8.4-10.2); Carbon Dioxide 25 mmol/L (22-30); Creatinine 1 0.79 mg/dL (0.52-1.04); EST GLOMERULAR FILTRATION RATE > 60.0 ML/MIN; Glucose 153 mg/dL (74-106); LIPASE 105 U/L (23-300); Potassium 5.2 mmol/L (3.5-5.1); SGOT/AST 32 U/L (14-36); SGPT/ALT 29 U/L (0-35); SODIUM 140 mmol/L (137-145); Total Protein 8.5 g/dL (6.3-8.2)
--- NOTE | 2023-07-05 16:45 | ERPHSYRPT ---
- History of Present Illness Historian: patient, other (Son) Patient Subjective Stated Complaint: C/O intermittent abdominal pain for approx 2 weeks. Patient states she has been trying to deal with her symptoms at home but just can't do it anymore. Pain always becomes worse after eating. Also c/o diarrhea. Denies N/V. States had a colonscopy approx one year ago. Patient also indicates that she has had 4 blood transfusions in the past 6 weeks (here and at the [facility]). Last transfusion approx 10 days ago per patient. Triage Nursing Assessment: Patient brought back to ER in a W/C. She is alert and oriented. No SOB. She is able to transfer self from chair to bed. Patient is a little pale. Skin is dry. DAVID MARES. Physician History: Patient is a 78-year-old female with left lower quadrant pain intermittently x2 weeks. Pain is currently 2 out of 10 but has been up to 8 out of 10. Pain described as sharp and cramping. Patient has chronic diarrhea whi ch is a little worse. Her chronic diarrhea is due to her previous colon resection. She has had some mild cough and coryza but denies fever. Chest pain is also denied. Previous surgical history is include colon resection, cholecystectomy, appendectomy, and total abdominal hysterectomy. Medical p roblems include diabetes mellitus, hypertension, and history of MA. Patient does not smoke or drink. Additional history per her son who is in the room. Timing/Duration: other (2 wks) Activities at Onset: rest Quality: cramping, sharpness Abdominal Pain Onset Location: LLQ Pain Radiation: no radiation Severity of Pain-Max: severe Severity of Pain-Current: mild Modifying Factors: Improves With: nothing Associated Symptoms: denies symptoms Previous symptoms: no prior history Allergies/Adverse Reactions: Penicillins Allergy (Verified 07/05/23 16:07) codeine Adverse Reaction (Verified 07/05/23 16:07) metoclopramide HCl [From Reglan] Adverse Reaction (Verified 07/05/23 16:07) morphine Adverse Reaction (Verified 07/05/23 16:07) SEDATED Sulfa (Sulfonamide Antibiotics) Adverse Reaction (Verified 07/05/23 16:07) Home Medications: Aspirin [Aspirin EC] 81 mg PO DAILY 08/18/16 [History] Atorvastatin Calcium 80 mg PO HS 08/18/16 [History] Metformin HCl 500 mg [Glucophage 500 MG] 1,000 mg PO BID 08/21/17 [History] Lisinopril 20 mg [Zestril 20 MG] 20 mg PO DAILY 07/26/21 [History] Trazodone HCl 50 mg [Desyrel 50 mg] 75 mg PO HS 07/26/21 [History] Brimonidine Tartrate [Alphagan P] 5 ml OP DAILY 01/17/23 [History] Latanoprost 2.5 ml OP HS 01/17/23 [History] Omeprazole 20 mg PO DAILY 01/17/23 [History] Adalimumab [Humira(Cf) Pen] 40 mg SQ DIRECTIONS UNKNOWN 07/05/23 [History] Colchicine [Mitigare] 1 cap PO DAILY 07/05/23 [History] Famotidine 20 mg [Pepcid 20 MG] 1 tab PO DAILY 07/05/23 [History] atenoloL [Atenolol] 1 tab PO DAILY 07/05/23 [History] Hx Tetanus, Diphtheria Vaccination/Date Given: Yes Hx Influenza Vaccination/Date Given: Yes Hx Pneumococcal Vaccination/Date Given: Yes Immunizations Up to Date: Yes Travel Risk - International Travel Have you traveled outside of the country in past 3 weeks: No - Coronavirus Screening Are you exhibiting any of the following symptoms?: No Close contact with a COVID-19 positive Pt in past 14-21 Days: No - Vaccine Status Have you recieved a Covid-19 vaccination: Yes Tobacco Farmworker: Moderna - Vaccination Dates Date of 2cond Vaccination (if applicable): 11/10/20 - Review of Systems Constitutional: No Symptoms Eyes: No Symptoms Ears, Nose, & Throat: No Symptoms Respiratory: No Symptoms Cardiac: No Symptoms Genitourinary Symptoms: No Symptoms Musculoskeletal: No Symptoms Skin: No Symptoms Neurological: No Symptoms Psychological: No Symptoms Endocrine: No Symptoms Hematologic/Lymphatic: No Symptoms Immunological/Allergic: No Symptoms - Past Medical History Pertinent Past Medical History: Yes Neurological History: Peripheral Neuropathy, TIA ENT History: Cataracts Cardiac History: Deep Vein Thrombosis, Hypertension Respiratory History: No Pertinent History Endocrine Medical History: Diabetes Type II Musculoskeletal History: Arthritis, Fractures, Osteoporosis GI Medical History: GERD, Gallbladder Disease, Hernia, Other History: Other Psycho-Social History: Anxiety, Depression Female Reproductive Disorders: Other Other Medical History: BECHETS, Anemia, Hx IVC filter for DVT, Pessiary, HX Kidney Stones, HX UTI, hx colon resection - Past Surgical History Past Surgical History: Yes Neuro Surgical History: No Pertinent History Cardiac: No Pertinent History Respiratory: No Pertinent History Gastrointestinal: Appendectomy, Cholecystectomy, Colon Resection, Hernia Repair Genitourinary: No Pertinent History Musculoskeletal: No Pertinent History Female Surgical History: Hysterectomy, Tubal Ligation Other Surgical History: GASTRIC BYPASS - Social History Smoking Status: Never smoker Exposure to second hand smoke: No Drug Use: none Patient Lives Alone: Yes - Nursing Vital Signs Nursing Vital Signs: Initial Vital Signs Temperature 98.9 F 07/05/23 15:57 Pulse Rate 72 07/05/23 15:57 Respiratory Rate 16 07/05/23 15:57 Blood Pressure 161/106 07/05/23 15:57 O2 Sat by Pulse Oximetry 94 L 07/05/23 15:57 Pain Scale Pain Intensity 0 Hypertensive - Physical Exam General Appearance: no apparent distress Eye Exam: PERRL/EOMI, eyes nml inspection Ears, Nose, Throat Exam: normal ENT inspection, TMs normal, pharynx normal, moist mucous membranes Neck Exam: normal inspection, non-tender, supple, full range of motion, No meningismus, No mass, No Brudzinski, No Kernig's, No carotid bruit Respiratory Exam: airway intact, crackles/rales (Rales B bases), No respiratory distress Cardiovascular Exam: regular rate/rhythm, normal heart sounds, normal peripheral pulses, capillary refill <2 sec, No murmur Gastrointestinal/Abdomen Exam: soft, normal bowel sounds, tenderness (Mild LLQ TTP wo guarding or rebound) Extremity Exam: normal inspection, normal range of motion Neurologic Exam: alert, oriented x 3, cooperative, apricot washer II-XII nml as tested, normal mood/affect, nml station & gait, sensation nml Skin Exam: normal color, warm, dry SpO2 Interpretation: borderline oxygenation SpO2: 92 O2 Delivery: Room Air - Course Nursing assessment & vital signs reviewed: Yes EKG Interpreted by Me: RATE (NSR/Rate69/Poor Rwave progression/Prolonged QTc/Artifact present/No acute ST segment changes) - CT Exams Abdomen/Pelvis CT Interpretation: Discussed w/radiologist (Nothing acute per Dr. Yousif's brief note) Ordered Tests: Active Orders 24 hr Category Date Time Status EKG-ER Only STAT Care 07/05/23 16:39 Active IV Insertion STAT Care 07/05/23 16:15 Active ABDOMEN AND PELVIS W CONTRAST [CT] Stat Exams 07/05/23 16:59 Taken AMYLASE Stat Lab 07/05/23 16:25 Completed CBC W DIFF Stat Lab 07/05/23 16:25 Completed CMP Stat Lab 07/05/23 16:25 Completed LIPASE Stat Lab 07/05/23 16:25 Completed Lactic Acid Stat Lab 07/05/23 16:25 Completed Lactic Acid Stat Lab 07/05/23 18:30 Completed TROPONIN Q4H Lab 07/05/23 16:25 Completed TROPONIN Q4H Lab 07/05/23 19:09 Received TROPONIN Q4H Lab 07/06/23 00:30 Ordered UA W/RFX UR CULTURE Stat Lab 07/05/23 18:10 Completed Medication Summary Generic Name Dose Route Start Last Admin Trade Name Freq PRN Reason Stop Dose Admin Famotidine 40 mg 07/05/23 22:00 07/05/23 16:53 Famotidine 20 Mg/1 Vial IV 08/04/23 21:59 40 mg HS STEVE Administration Discontinued Medications Generic Name Dose Route Start Last Admin Trade Name Freq PRN Reason Stop Dose Admin Sodium Chloride 1,000 mls @ 999 mls/hr 07/05/23 16:40 07/05/23 17:44 Sodium Chloride 0.9% 1000 Ml IV 07/05/23 17:40 Infused .Q1H1M STA Infusion Sodium Chloride Confirm 07/05/23 16:43 Sodium Chloride 0.9% 1000 Ml Administered 07/05/23 16:44 Dose 1,000 mls @ ud .ROUTE .STK-MED ONE Lab/Rad Data: Laboratory Result Diagrams 07/05/23 16:25 07/05/23 16:25 Laboratory Results 07/05/23 07/05/23 07/05/23 Range/Units 18:30 18:10 16:58 WBC (4.0-10.5) x10^3/uL RBC (4.1-5.4) x10^6/uL Hgb (12.0-16.0) g/dL Hct (35-47) % MCV (78-100) fL MCH (26-32) pg MCHC (32-36) g/dL Plt Count (150-450) x10^3/uL MPV (7.5-11.0) fL Gran % (36.0-66.0) % Immature Gran % (Auto) (0.00-0.4) % Nucleat RBC Rel Count (0.00-0.1) % Eos # (Auto) (0-0.5) x10^3/uL Immature Gran # (Auto) (0.00-0.03) x10^3u/L Absolute Lymphs (auto) (1.0-4.6) x10^3/uL Absolute Monos (auto) (0.0-1.3) x10^3/uL Absolute Nucleated RBC (0.00-0.01) x10^3u/L Lymphocytes % (24.0-44.0) % Monocytes % (0.0-12.0) % Eosinophils % (0.00-5.0) % Basophils % (0.0-0.4) % Absolute Granulocytes (1.4-6.9) x10^3/uL Basophils # (0-0.4) x10^3/uL Sodium (137-145) mmol/L Potassium (3.5-5.1) mmol/L Chloride (98-107) mmol/L Carbon Dioxide (22-30) mmol/L Anion Gap (5-15) MEQ/L BUN (7-17) mg/dL Creatinine (0.52-1.04) mg/dL Estimated GFR ML/MIN Glucose (74-106) mg/dL Lactic Acid 2.6 H (0.4-2.0) Calcium (8.4-10.2) mg/dL Total Bilirubin (0.2-1.3) mg/dL AST (14-36) U/L ALT (0-35) U/L Alkaline Phosphatase (38-126) U/L Troponin I (0.000-0.034) ng/mL Serum Total Protein (6.3-8.2) g/dL Albumin (3.5-5.0) g/dL Amylase (30-110) U/L Lipase (23-300) U/L Urine Color Yellow (Yellow) Urine Appearance Clear (Clear) Urine pH 7.0 (4.6-8.0) Ur Specific [place] 1.020 (1.005-1.030) Urine Protein Negative (Negative) Urine Glucose (UA) Negative (Negative) mg/dL Urine Ketones Negative (Negative) Urine Blood Negative (Negative) Urine Nitrite Negative (Negative) Urine Bilirubin Negative (Negative) Urine Urobilinogen 0.2 (0.2) mg/dL Ur Leukocyte Esterase Trace A (Negative) U Hyaline Cast (Auto) NONE SEEN (0-2) /LPF Urine Microscopic RBC 0-2 (0-5) /HPF Urine Microscopic WBC 0-2 (0-5) /HPF Ur Epithelial Cells None Seen (None Seen) /HPF Urine Bacteria None Seen (None Seen) /HPF Urine Culture Reflexed NO (NO) Influenza Type A Ag NEGATIVE (NEGATIVE) Influenza Type B Ag NEGATIVE (NEGATIVE) RSV (PCR) NEGATIVE (NEGATIVE) SARS-CoV-2 (PCR) NEGATIVE (NEGATIVE) 07/05/23 07/05/23 07/05/23 Range/Units 16:25 16:25 16:25 WBC (4.0-10.5) x10^3/uL RBC (4.1-5.4) x10^6/uL Hgb (12.0-16.0) g/dL Hct (35-47) % MCV (78-100) fL MCH (26-32) pg MCHC (32-36) g/dL Plt Count (150-450) x10^3/uL MPV (7.5-11.0) fL Gran % (36.0-66.0) % Immature Gran % (Auto) (0.00-0.4) % Nucleat RBC Rel Count (0.00-0.1) % Eos # (Auto) (0-0.5) x10^3/uL Immature Gran # (Auto) (0.00-0.03) x10^3u/L Absolute Lymphs (auto) (1.0-4.6) x10^3/uL Absolute Monos (auto) (0.0-1.3) x10^3/uL Absolute Nucleated RBC (0.00-0.01) x10^3u/L Lymphocytes % (24.0-44.0) % Monocytes % (0.0-12.0) % Eosinophils % (0.00-5.0) % Basophils % (0.0-0.4) % Absolute Granulocytes (1.4-6.9) x10^3/uL Basophils # (0-0.4) x10^3/uL Sodium 140 (137-145) mmol/L Potassium 5.2 H (3.5-5.1) mmol/L Chloride 102 (98-107) mmol/L Carbon Dioxide 25 (22-30) mmol/L Anion Gap 18.5 H (5-15) MEQ/L BUN 23 H (7-17) mg/dL Creatinine 0.79 (0.52-1.04) mg/dL Estimated GFR > 60.0 ML/MIN Glucose 153 H (74-106) mg/dL Lactic Acid 4.3 H (0.4-2.0) Calcium 9.8 (8.4-10.2) mg/dL Total Bilirubin 0.60 (0.2-1.3) mg/dL AST 32 (14-36) U/L ALT 29 (0-35) U/L Alkaline Phosphatase 115 (38-126) U/L Troponin I < 0.012 (0.000-0.034) ng/mL Serum Total Protein 8.5 H (6.3-8.2) g/dL Albumin 4.8 (3.5-5.0) g/dL Amylase 65 (30-110) U/L Lipase 105 (23-300) U/L Urine Color (Yellow) Urine Appearance (Clear) Urine pH (4.6-8.0) Ur Specific [place] (1.005-1.030) Urine Protein (Negative) Urine Glucose (UA) (Negative) mg/dL Urine Ketones (Negative) Urine Blood (Negative) Urine Nitrite (Negative) Urine Bilirubin (Negative) Urine Urobilinogen (0.2) mg/dL Ur Leukocyte Esterase (Negative) U Hyaline Cast (Auto) (0-2) /LPF Urine Microscopic RBC (0-5) /HPF Urine Microscopic WBC (0-5) /HPF Ur Epithelial Cells (None Seen) /HPF Urine Bacteria (None Seen) /HPF Urine Culture Reflexed (NO) Influenza Type A Ag (NEGATIVE) Influenza Type B Ag (NEGATIVE) RSV (PCR) (NEGATIVE) SARS-CoV-2 (PCR) (NEGATIVE) 07/05/23 Range/Units 16:25 WBC 7.9 (4.0-10.5) x10^3/uL RBC 5.46 H (4.1-5.4) x10^6/uL Hgb 13.3 (12.0-16.0) g/dL Hct 45.0 (35-47) % MCV 82.4 (78-100) fL MCH 24.4 L (26-32) pg MCHC 29.6 L (32-36) g/dL Plt Count 248 (150-450) x10^3/uL MPV 9.0 (7.5-11.0) fL Gran % 49.8 (36.0-66.0) % Immature Gran % (Auto) 0.4 (0.00-0.4) % Nucleat RBC Rel Count 0.0 (0.00-0.1) % Eos # (Auto) 0.30 (0-0.5) x10^3/uL Immature Gran # (Auto) 0.03 (0.00-0.03) x10^3u/L Absolute Lymphs (auto) 2.90 (1.0-4.6) x10^3/uL Absolute Monos (auto) 0.66 (0.0-1.3) x10^3/uL Absolute Nucleated RBC 0.00 (0.00-0.01) x10^3u/L Lymphocytes % 36.8 (24.0-44.0) % Monocytes % 8.4 (0.0-12.0) % Eosinophils % 3.8 (0.00-5.0) % Basophils % 0.8 (0.0-0.4) % Absolute Granulocytes 3.94 (1.4-6.9) x10^3/uL Basophils # 0.06 (0-0.4) x10^3/uL Sodium (137-145) mmol/L Potassium (3.5-5.1) mmol/L Chloride (98-107) mmol/L Carbon Dioxide (22-30) mmol/L Anion Gap (5-15) MEQ/L BUN (7-17) mg/dL Creatinine (0.52-1.04) mg/dL Estimated GFR ML/MIN Glucose (74-106) mg/dL Lactic Acid (0.4-2.0) Calcium (8.4-10.2) mg/dL Total Bilirubin (0.2-1.3) mg/dL AST (14-36) U/L ALT (0-35) U/L Alkaline Phosphatase (38-126) U/L Troponin I (0.000-0.034) ng/mL Serum Total Protein (6.3-8.2) g/dL Albumin (3.5-5.0) g/dL Amylase (30-110) U/L Lipase (23-300) U/L Urine Color (Yellow) Urine Appearance (Clear) Urine pH (4.6-8.0) Ur Specific [place] (1.005-1.030) Urine Protein (Negative) Urine Glucose (UA) (Negative) mg/dL Urine Ketones (Negative) Urine Blood (Negative) Urine Nitrite (Negative) Urine Bilirubin (Negative) Urine Urobilinogen (0.2) mg/dL Ur Leukocyte Esterase (Negative) U Hyaline Cast (Auto) (0-2) /LPF Urine Microscopic RBC (0-5) /HPF Urine Microscopic WBC (0-5) /HPF Ur Epithelial Cells (None Seen) /HPF Urine Bacteria (None Seen) /HPF Urine Culture Reflexed (NO) Influenza Type A Ag (NEGATIVE) Influenza Type B Ag (NEGATIVE) RSV (PCR) (NEGATIVE) SARS-CoV-2 (PCR) (NEGATIVE) - Progress Progress: improved Progress Note: 07/05/23 19:42 Nursing note vital signs reviewed. No food or housing insecurity is noted. Additional history per son. All lab results were reviewed thoroughly and shared with patient and her son thoroughly CT results are further reviewed thoroughly and shared with patient and her son. Etiology of patient's abdominal pain unclear but there is no evidence of surgical abdomen at this time. Patient has some chronic diarrhea which is worsening at this time so treated with Flagyl 500 mg p.o. twice daily x1 week. Patient advised to follow-up with her family doctor or GI specialist for for continued abdominal pain and to return to the ER for increasing pain or temperature greater than 100.5. 07/05/23 19:45 Patient's initial lactic acid was elevated but was normalizing after 1 L normal saline bolus. 07/05/23 19:46 Counseled pt/family regarding: lab results, diagnosis, need for follow-up, rad results Medical Desision Making - Independent Historian Additional History obtained from: Child - Diagnostic Testing Diagnostic test were ordered, analyzed, and reviewed by me: Yes Radiological Interpretation: Reviewed by me - Risk of complications The pt has a mod risk of morbidity or mortality based on: Need for prescription drug management - Departure Departure Disposition: Home Clinical Impression: Abdominal pain, Diarrhea Condition: Stable Critical Care Time: No Referrals: JOSE DANIEL ANGLIN USER EXPERIENCE ANALYST [Primary Care Provider] - Follow up/PCP as directed Instructions: Severe Abdominal Pain, Adult (DC) Additional Instructions: Return to ER for increasing abdominal pain or temperature greater 100.5 Start Flagyl twice a day for 1 week for diarrhea. Abstain from alcohol while using Flagyl. Follow-up with your family MD and/or structural mill supervisor. Continue current medications. Prescriptions: Metronidazole 500 mg [Flagyl 500 MG] 500 mg PO BID 7 Days #14 tablet
[2023-07-05] MEDS ORDERED: Pepcid 20 MG VIAL IV ONE (16:49)
[2023-07-05 17:38] LABS: INFLUENZA A NEGATIVE (NEGATIVE); INFLUENZA B NEGATIVE (NEGATIVE); RESPIRATORY SYNCTIAL VIRUS NEGATIVE (NEGATIVE); SARS-CoV-2 Xpert Express NEGATIVE (NEGATIVE)
[2023-07-05 18:21] LABS: Appearance Clear (Clear); Bacteria None Seen /HPF (None Seen); Bilirubin Negative (Negative); Blood Negative (Negative); Epithelial Cells None Seen /HPF (None Seen); Glucose, Urine Negative (Negative); Hyaline Casts NONE SEEN /LPF (0-2); Ketones Negative (Negative); Leukocyte Esterase Trace (Negative); Nitrite Negative (Negative); Protein,Urine Dip Negative (Negative); RBC 0-2 /HPF (0-5); Urobilinogen 0.2 mg/dL (0.2); WBC 0-2 /HPF (0-5)
[2023-07-05 18:23] LABS: ADD URINE CULTURE? NO (NO)
[2023-07-05 19:22] VITALS: BP 177/87; PULSE 67; RESP 21
[2023-07-05 19:30] VITALS: O2SAT 92
[2023-07-05 19:47] LABS: Slide Review 1 YES
[2023-07-05] MEDS ORDERED: Pepcid 20 MG VIAL IV SCH (22:00)
--- NOTE | 2023-07-06 08:44 | XRAY ---
Indication: Left lower quadrant pain. Multiple contiguous axial images obtained through the abdomen and pelvis using 80 cc Isovue 370 contrast. Comparison: April 27, 2023 Lung bases again demonstrates scattered fibrosis/scarring and bronchiectasis. No infiltrate or effusion. Heart not enlarged. Noncontrasted stomach and bowel loops nonobstructed with intact descending colon anastomosis. Stable left renal cortical thinning/scarring, splenic calcified granulomas, appendectomy, cholecystotomy, hysterectomy, IVC filter, pelvic floor pessary device, and ventral hernia mesh graft. No free fluid/air. Remaining liver, pancreas, spleen, adrenal glands, kidneys, ureters, and bladder are unremarkable. There remains mild scattered aortoiliac calcifications. No AAA or pathologic retroperitoneal lymphadenopathy. Osseous structures intact again with osteopenia, moderate/advanced multilevel thoracolumbar degenerative spondylosis, grade 3 L4 listhesis, marked levorotoscoliosis, and old right inferior pubic ramus fracture. Impression: Again chronic findings including left renal cortical thinning/scarring, postsurgical changes, arteriosclerotic disease, pulmonary fibrosis/scarring/bronchiectasis, chronic bony findings, and old granulomatous disease. No new/acute findings.
== END 2023-07-05 19:43 | disposition home or self-care (01) ==
LOC: ED 15:56
DX: R10.32 Left lower quadrant pain (principal); R19.7 Diarrhea, unspecified; E11.42 Type 2 diabetes mellitus with diabetic polyneuropathy; I10 Essential (primary) hypertension; Z79.84 Long term (current) use of oral hypoglycemic drugs; Z79.899 Other long term (current) drug therapy; Z20.828 Contact with and (suspected) exposure to other viral communicable diseases
CPT/HCPCS: 0241U; 36000; 36415; 74177; 80053; 81001; 82150; 83605; 83690; 84484; 85025; 93005; 96374; 99284

== ENCOUNTER 2024-07-23 13:54 | Emergency (ER) | payer MEDICARE, BC ==
--- NOTE | 2024-07-23 13:56 | ERPHSYRPT ---
- History of Present Illness Time Seen by Provider: 07/23/24 13:56 Historian: patient, family Exam Limitations: no limitations Physician History: This is a thin 79-year-old white female patient of Dr. Howard who arrives by private vehicle secondary to intermittent chest pain for 3 months. This morning, the patient was having central, substernal chest pressure that was mild but present and she became concerned when it did not go away and radiated to the right first and second to her left upper arm. She took a total of 3 nitroglycerin prior to arrival. On arrival to the emergency department her chest pressure and the radiation to the right side and the left arm have resolved completely. Patient sees blood bank booking clerk Dr. Flores. She usually sees him once a year. She has an appointment to see him next week. Patient has a history of hypertension, gastroesophageal reflux disease, chronic angina and hyperlipidemia. She does not have shortness of breath but during the last 3 months intermittently she did experience some shortness of breath. She has not had a cough or fever. Timing/Duration: intermittent, other (Mentally for several months) Quality: pressure Location: substernal, central Chest Pain Radiation: arm (Left upper extremity) Severity of Pain-Max: mild Severity of Pain-Current: none Modifying Factors: Improves With: nitroglycerin Associated Symptoms: denies symptoms Prior Chest Pain/Cardiac Workup: cardiac cath, heart attack Nitro Today/Relief: 0.4 mg x 3, provided at home Aspirin Treatment Today: no aspirin today Allergies/Adverse Reactions: apremilast [From Otezla] Allergy (Verified 07/23/24 14:05) Penicillins Allergy (Verified 07/23/24 14:04) codeine Adverse Reaction (Verified 07/23/24 14:04) metoclopramide HCl [From Reglan] Adverse Reaction (Verified 07/23/24 14:04) morphine Adverse Reaction (Verified 07/23/24 14:04) SEDATED Sulfa (Sulfonamide Antibiotics) Adverse Reaction (Verified 07/23/24 14:04) Home Medications: Aspirin [Aspirin EC] 81 mg PO DAILY 08/18/16 [History] Atorvastatin Calcium 80 mg PO HS 08/18/16 [History] Metformin HCl 500 mg [Glucophage 500 MG] 1,000 mg PO BID 08/21/17 [History] Lisinopril 20 mg [Zestril 20 MG] 20 mg PO DAILY 07/26/21 [History] Trazodone HCl 50 mg [Desyrel 50 mg] 75 mg PO HS 07/26/21 [History] Brimonidine Tartrate [Alphagan P] 1 drop OP BID 01/17/23 [History] Latanoprost 1 drop OP HS 01/17/23 [History] Omeprazole 20 mg PO DAILY 01/17/23 [History] Adalimumab [Humira(Cf) Pen] 40 mg SQ UD 07/05/23 [History] Famotidine 20 mg [Pepcid 20 MG] 20 mg PO BID 07/05/23 [History] atenoloL [Atenolol] 25 mg PO DAILY 07/05/23 [History] Ca/D3/Mag Ox/Zinc/Er Physician/Greg/Bor [Calcium 600+D3 Plus Caplet] 1 each PO BID 07/23/24 [History] Cholecalciferol (Vitamin D3) [Vitamin D3] 25 mcg PO DAILY 07/23/24 [History] Cyanocobalamin 500 Mcg [Vitamin B-12 500 MCG] 1,000 mcg PO DAILY 07/23/24 [History] Empagliflozin [Jardiance] 10 mg PO DAILY 07/23/24 [History] Magnesium Oxide 400 mg [Mag-Ox 400] 400 mg PO DAILY 07/23/24 [History] Melatonin 10 mg PO DAILY 07/23/24 [History] Nitroglycerin 0.4 mg Tablet [Nitrostat 0.4 MG Tablet] 0.4 mg SL Q5MIN PRN MR X 3 PRN 07/23/24 [History] Hx Tetanus, Diphtheria Vaccination/Date Given: Yes Hx Influenza Vaccination/Date Given: Yes Hx Pneumococcal Vaccination/Date Given: Yes Travel Risk - International Travel Have you traveled outside of the country in past 3 weeks: No - Emerging Infectious Disease Are you exhibiting symptoms associated with any current EIDs: No - Review of Systems Constitutional: No Symptoms Eyes: No Symptoms Ears, Nose, & Throat: No Symptoms Respiratory: No Symptoms Cardiac: Chest Pain Abdominal/Gastrointestinal: No Symptoms Genitourinary Symptoms: No Symptoms Musculoskeletal: No Symptoms Skin: No Symptoms Neurological: No Symptoms Psychological: No Symptoms Endocrine: No Symptoms Hematologic/Lymphatic: No Symptoms Immunological/Allergic: No Symptoms All Other Systems: Reviewed and Negative - Past Medical History Pertinent Past Medical History: Yes Neurological History: Peripheral Neuropathy, TIA ENT History: Cataracts Cardiac History: Deep Vein Thrombosis, Hypertension Respiratory History: No Pertinent History Endocrine Medical History: Diabetes Type II Musculoskeletal History: Arthritis, Fractures, Osteoporosis GI Medical History: GERD, Gallbladder Disease, Hernia, Other History: Other Psycho-Social History: Anxiety, Depression Female Reproductive Disorders: Other Other Medical History: BECHETS, Anemia, Hx IVC filter for DVT, Pessiary, HX Kid brant Stones, HX UTI, hx colon resection - Past Surgical History Past Surgical History: Yes Neuro Surgical History: No Pertinent History Cardiac: No Pertinent History Respiratory: No Pertinent History Gastrointestinal: Appendectomy, Cholecystectomy, Colon Resection, Hernia Repair Genitourinary: No Pertinent History Musculoskeletal: No Pertinent History Female Surgical History: Hysterectomy, Tubal Ligation Other Surgical History: GASTRIC BYPASS - Social History Smoking Status: Never smoker Exposure to second hand smoke: No Drug Use: none Patient Lives Alone: Yes - Nursing Vital Signs Nursing Vital Signs: Initial Vital Signs Temperature 99.3 F 07/23/24 13:56 Pulse Rate 74 07/23/24 13:56 Respiratory Rate 18 07/23/24 13:56 Blood Pressure 188/102 07/23/24 13:56 O2 Sat by Pulse Oximetry 96 07/23/24 13:56 Pain Scale Pain Intensity 0 - Physical Exam General Appearance: no apparent distress, alert, anxiety, thin Eye Exam: PERRL/EOMI, eyes nml inspection Ears, Nose, Throat Exam: normal ENT inspection, moist mucous membranes Neck Exam: normal inspection, non-tender, supple, full range of motion Respiratory Exam: normal breath sounds, lungs clear, airway intact, No chest tenderness, No respiratory distress Cardiovascular Exam: regular rate/rhythm, normal heart sounds, normal peripheral pulses Gastrointestinal/Abdomen Exam: soft, normal bowel sounds, No tenderness Pelvic Exam: not done Rectal Exam: not done Back Exam: normal inspection, normal range of motion, No CVA tenderness, No vertebral tenderness Extremity Exam: normal inspection, normal range of motion, pelvis stable Neurologic Exam: alert, oriented x 3, cooperative, deburring machine operator II-XII nml as tested, nml cerebellar function, nml station & gait, sensation nml Skin Exam: normal color, warm, dry Lymphatic Exam: No adenopathy SpO2 Interpretation: normal O2 Delivery: Room Air - Course Nursing assessment & vital signs reviewed: Yes EKG Interpreted by Me: RATE (74), Sinus Rhythm, NORMAL AXIS, NORMAL INTERVALS, NORMAL QRS, NORMAL ST-T, Other (Acute ischemic changes on today's twelve-lead EKG.) Ordered Tests: Active Orders 24 hr Category Date Time Status Cable Armorer STAT Care 07/23/24 14:20 Active EKG-ER Only STAT Care 07/23/24 14:20 Active IV Insertion STAT Care 07/23/24 14:20 Active Pulse Oximetry (ED) STAT Care 07/23/24 14:20 Active CHEST 1 VIEW (PORTABLE) Stat Exams 07/23/24 14:20 Completed CBC W DIFF Stat Lab 07/23/24 14:30 Completed CMP Stat Lab 07/23/24 14:30 Completed MAG [MAGNESIUM] Stat Lab 07/23/24 14:30 Completed NT PRO BNPII Stat Lab 07/23/24 14:30 Completed TROPONIN Q4H Lab 07/23/24 14:30 Completed TROPONIN Q4H Lab 07/23/24 16:50 Completed TROPONIN Q4H Lab 07/23/24 22:30 Ordered Medication Summary Discontinued Medications Generic Name Dose Route Start Last Admin Trade Name Freq PRN Reason Stop Dose Admin Aspirin 324 mg 07/23/24 14:20 07/23/24 14:49 Aspirin 81 Mg Tab.Chew PO 07/23/24 14:21 324 mg STAT ONE Administration Aspirin Confirm 07/23/24 14:49 Aspirin 81 Mg Tab.Chew Administered 07/23/24 14:50 Dose 324 mg .ROUTE .STK-MED ONE Lab/Rad Data: Laboratory Result Diagrams 07/23/24 14:30 07/23/24 14:30 Laboratory Results 07/23/24 07/23/24 07/23/24 Range/Units 16:50 14:30 14:30 WBC (3.98-10.04) x10^3/uL RBC (3.93-5.22) x10^6/uL Hgb (11.2-15.7) g/dL Hct (34.1-44.9) % MCV (79.4-94.8) fL MCH (25.6-32.2) pg MCHC (32.2-35.5) g/dL RDW (11.7-14.4) % Plt Count (182-369) x10^3/uL MPV (9.4-12.3) fL Gran % (34.0-71.1) % Immature Gran % (Auto) (0.001-0.429) % Nucleat RBC Rel Count (0.00-0.2) % Eos # (Auto) (0.04-0.36) x10^3/uL Immature Gran # (Auto) (0.001-0.031) x10^3u/L Absolute Lymphs (auto) (1.18-3.74) x10^3/uL Absolute Monos (auto) (0.24-0.86) x10^3/uL Absolute Nucleated RBC (0.00-0.012) x10^3u/L Lymphocytes % (19.3-51.7) % Monocytes % (4.7-12.5) % Eosinophils % (0.7-5.8) % Basophils % (0.1-1.2) % Absolute Granulocytes (1.56-6.13) x10^3/uL Basophils # (0.01-0.08) x10^3/uL Sodium 143 (135-145) mmol/L Potassium 4.5 (3.5-5.1) mmol/L Chloride 106 (98-107) mmol/L Carbon Dioxide 22 (22-30) mmol/L Anion Gap 18.9 H (5-15) MEQ/L BUN 20 H (7-17) mg/dL Creatinine 0.84 (0.52-1.04) mg/dL Estimated GFR 70.6 ML/MIN Glucose 110 H (74-106) mg/dL Calcium 10.1 (8.4-10.2) mg/dL Magnesium 1.8 (1.6-2.3) mg/dL Total Bilirubin 0.50 (0.2-1.3) mg/dL AST 35 (14-36) U/L ALT 40 H (0-35) U/L Alkaline Phosphatase 71 (38-126) U/L Troponin I < 0.012 < 0.012 (0.000-0.033) ng/mL NT-Pro-B Natriuret Pep 87.3 (<300) pg/mL Serum Total Protein 7.9 (6.3-8.2) g/dL Albumin 4.9 (3.5-5.0) g/dL 07/23/24 Range/Units 14:30 WBC 8.2 (3.98-10.04) x10^3/uL RBC 4.68 (3.93-5.22) x10^6/uL Hgb 14.8 (11.2-15.7) g/dL Hct 45.3 H (34.1-44.9) % MCV 96.8 H (79.4-94.8) fL MCH 31.6 (25.6-32.2) pg MCHC 32.7 (32.2-35.5) g/dL RDW 13.6 (11.7-14.4) % Plt Count 249 (182-369) x10^3/uL MPV 9.0 L (9.4-12.3) fL Gran % 45.9 (34.0-71.1) % Immature Gran % (Auto) 0.4 (0.001-0.429) % Nucleat RBC Rel Count 0.0 (0.00-0.2) % Eos # (Auto) 0.97 H (0.04-0.36) x10^3/uL Immature Gran # (Auto) 0.03 (0.001-0.031) x10^3u/L Absolute Lymphs (auto) 2.80 (1.18-3.74) x10^3/uL Absolute Monos (auto) 0.60 (0.24-0.86) x10^3/uL Absolute Nucleated RBC 0.00 (0.00-0.012) x10^3u/L Lymphocytes % 34.0 (19.3-51.7) % Monocytes % 7.3 (4.7-12.5) % Eosinophils % 11.8 H (0.7-5.8) % Basophils % 0.6 (0.1-1.2) % Absolute Granulocytes 3.79 (1.56-6.13) x10^3/uL Basophils # 0.05 (0.01-0.08) x10^3/uL Sodium (135-145) mmol/L Potassium (3.5-5.1) mmol/L Chloride (98-107) mmol/L Carbon Dioxide (22-30) mmol/L Anion Gap (5-15) MEQ/L BUN (7-17) mg/dL Creatinine (0.52-1.04) mg/dL Estimated GFR ML/MIN Glucose (74-106) mg/dL Calcium (8.4-10.2) mg/dL Magnesium (1.6-2.3) mg/dL Total Bilirubin (0.2-1.3) mg/dL AST (14-36) U/L ALT (0-35) U/L Alkaline Phosphatase (38-126) U/L Troponin I (0.000-0.033) ng/mL NT-Pro-B Natriuret Pep (<300) pg/mL Serum Total Protein (6.3-8.2) g/dL Albumin (3.5-5.0) g/dL - Progress Progress: improved, re-examined Air Movement: good Progress Note: 07/23/24 15:48 My medical decision making and the assignment of moderate complexity to this patient's medical issue today is based on review of the patient's past medical history, review of the patient's medication list, reviewed patient drug allergy list, history present illness and physical findings on examination. The workup in this patient includes placement of intravenous line, CBC, CMP, magnesium level, troponin level, BNP level, twelve-lead EKG, chest x-ray Differential diagnosis includes but is not limited to electrolyte abnormalities, arrhythmia, myocardial infarction, CHF, pneumonia 07/23/24 16:03 The chest x-ray was interpreted by the radiologist and I reviewed the impression. The impression states nonacute hyperinflated chest with chronic fea tures 07/23/24 16:03 I interpreted the laboratory data results. Based on the laboratory data results there are no acute or emergent medical issues. We will repeat the twelve-lead EKG and troponin level at 5 PM. If these test results are normal, we will discharge the patient to home to follow-up with her blood bank booking clerk in 48 hours. 07/23/24 17:47 I interpreted the repeat twelve-lead EKG performed on 07/23/2024 at 1719. The rate is 77 bpm the rhythm is sinus rhythm. There is borderline prolonged QT interval. Normal axis, normal deviation, QTc is 488 and there are no acute ischemic changes. Patient has no chest pain and desires to be discharged to home. She will follow-up with her primary blood bank booking clerk in 48 hours. Blood Culture(s) Obtained: No Antibiotics given: No Counseled pt/family regarding: lab results, diagnosis, need for follow-up, rad results Medical Desision Making - Diagnostic Testing Diagnostic test were ordered, analyzed, and reviewed by me: Yes Radiological Interpretation: Reviewed by me, Teleradiologist Report - Risk of complications Low Risk: Low risk of morbidity from additional dx testing or treatment - Departure Departure Disposition: Home Clinical Impression: Nonspecific chest pain Condition: Stable Critical Care Time: No Referrals: JOSE DANIEL ANGLIN TILE INSPECTOR [Primary Care Provider] - Follow up/PCP as directed Additional Instructions: Take all your medications as prescribed. Follow-up with your blood bank booking clerk at your scheduled appointment date and appointment time.
[2024-07-23 14:03] VITALS: TEMP 99.3
[2024-07-23 14:36] LABS: Absolute Neutrophil Ct (ANC) 3.79 x10^3/uL (1.56-6.13); BASOPHIL % 0.6 % (0.1-1.2); Basophil (Absolute #) 0.05 x10^3/uL (0.01-0.08); Eosinophil % 11.8 % (0.7-5.8); Eosinophil (Absolute #) 0.97 x10^3/uL (0.04-0.36); Hematocrit 45.3 % (34.1-44.9); Hemoglobin 14.8 g/dL (11.2-15.7); IMMATURE GRAN # 0.03 x10^3u/L (0.001-0.031); IMMATURE GRAN % 0.4 % (0.001-0.429); Mean Cell Volume 96.8 fL (79.4-94.8); Mean Corpuscular Hemoglobin 31.6 pg (25.6-32.2); Mean Corpuscular Hgb Concent. 32.7 g/dL (32.2-35.5); Monocytes % 7.3 % (4.7-12.5); Neutrophil % 45.9 % (34.0-71.1); Platelet Count 249 x10^3/uL (182-369); Red Blood Count 4.68 x10^6/uL (3.93-5.22); Red Cell Distribution Width 13.6 % (11.7-14.4); White Blood Count 8.2 x10^3/uL (3.98-10.04)
[2024-07-23] MEDS ORDERED: BABY ASPIRIN 81 MG CHEW ONE (14:49)
[2024-07-23] MEDS: BABY ASPIRIN 81 MG CHEW PO ONE (14:49)
--- NOTE | 2024-07-23 14:56 | XRAY ---
Indication: Chest pain. Comparison: July 22, 2022 Portable chest remains hyperinflated and clear again with incidental right upper lobe/right hilar calcified granulomas and focal eventration right hemidiaphragm. Heart not enlarged. Bony thorax intact again with osteopenia, degenerative changes, and mild dextroscoliosis. Impression: Continued nonacute hyperinflated chest with chronic features.
[2024-07-23 15:07] LABS: ALBUMIN 4.9 g/dL (3.5-5.0); ANION GAP 18.9 MEQ/L (5-15); BILIRUBIN,TOTAL 0.5 mg/dL (0.2-1.3); Calcium 10.1 mg/dL (8.4-10.2); Creatinine 1 0.84 mg/dL (0.52-1.04); EST GLOMERULAR FILTRATION RATE 70.6 ML/MIN; MAGNESIUM 1.8 mg/dL (1.6-2.3); NT PRO BNPII 87.3 pg/mL (<300); Potassium 4.5 mmol/L (3.5-5.1); Total Protein 7.9 g/dL (6.3-8.2)
[2024-07-23 17:15] VITALS: RESP 20; O2SAT 93
[2024-07-23 17:52] VITALS: BP 146/84; PULSE 79
== END 2024-07-23 17:55 | disposition home or self-care (01) ==
LOC: ED 13:54
DX: R07.9 Chest pain, unspecified (principal); Z86.79 Personal history of other diseases of the circulatory system; I25.2 Old myocardial infarction; Z79.899 Other long term (current) drug therapy; E11.9 Type 2 diabetes mellitus without complications; I10 Essential (primary) hypertension
CPT/HCPCS: 36415; 71045; 80053; 83735; 83880; 84484; 85025; 93005; 93041; 94760; 99284; A9270-GY

== ENCOUNTER 2024-10-14 17:21 | Emergency (ER) | payer MEDICARE, BC ==
[2024-10-14 17:53] VITALS: TEMP 98.9
[2024-10-14 19:36] VITALS: RESP 18
--- NOTE | 2024-10-14 19:48 | ERPHSYRPT ---
- History of Present Illness Time Seen by Provider: 10/14/24 18:30 Source: patient Exam Limitations: no limitations Patient Subjective Stated Complaint: pt c/o of left lower leg pain and pain up by her groin, pt has a hx of DVT's and has a filter in place Triage Nursing Assessment: Pt brought to the ER by her son, hypertensive, rates pain when it hurts as an 8/10 but she is not having any pain at this time, pulses normal, skin n/w/d, no swelling noted, denies tenderness, doesn't appear to be in any distress Physician History: 79-year-old female with a history of DVT presents for emergency department for evaluation of pain at her left calf. Pain rated 8 out of 10. However the pain has since resolved. No associated chest pain or shortness of breath. No nausea vomiting or diaphoresis. Symptoms were mild to moderate in intensity. Pain at this point is 0. Patient voices no other complaints or concerns at this time. Portions of this note were created with voice recognition technology. There may be grammatical, spelling, punctuation or sound alike errors Timing/Duration: today Severity: moderate Modifying Factors: Improves With: nothing Associated Symptoms: denies symptoms Allergies/Adverse Reactions: apremilast [From Otezla] Allergy (Verified 10/14/24 17:53) Penicillins Allergy (Verified 10/14/24 17:53) codeine Adverse Reaction (Verified 10/14/24 17:53) metoclopramide HCl [From Reglan] Adverse Reaction (Verified 10/14/24 17:53) morphine Adverse Reaction (Verified 10/14/24 17:53) SEDATED Sulfa (Sulfonamide Antibiotics) Adverse Reaction (Verified 10/14/24 17:53) Home Medications: Aspirin [Aspirin EC] 81 mg PO DAILY 08/18/16 [History] Atorvastatin Calcium 80 mg PO HS 08/18/16 [History] Metformin HCl 500 mg [Glucophage 500 MG] 1,000 mg PO BID 08/21/17 [History] Lisinopril 20 mg [Zestril 20 MG] 20 mg PO DAILY 07/26/21 [History] Trazodone HCl 50 mg [Desyrel 50 mg] 75 mg PO HS 11/16/21 [History] Brimonidine Tartrate [Alphagan P] 1 drop OP BID 01/17/23 [History] Latanoprost 1 drop OP HS 01/17/23 [History] Omeprazole 20 mg PO DAILY 01/17/23 [History] Adalimumab [Humira(Cf) Pen] 40 mg SQ UD 07/05/23 [History] Famotidine 20 mg [Pepcid 20 MG] 20 mg PO BID 07/05/23 [History] atenoloL [Atenolol] 25 mg PO DAILY 07/05/23 [History] Ca/D3/Mag Ox/Zinc/Angiography Nurse/Greg/Bor [Calcium 600+D3 Plus Caplet] 1 each PO BID 07/23/24 [History] Cholecalciferol (Vitamin D3) [Vitamin D3] 25 mcg PO DAILY 07/23/24 [History] Cyanocobalamin 500 Mcg [Vitamin B-12 500 MCG] 1,000 mcg PO DAILY 07/23/24 [History] Empagliflozin [Jardiance] 10 mg PO DAILY 07/23/24 [History] Magnesium Oxide 400 mg [Mag-Ox 400] 400 mg PO DAILY 07/23/24 [History] Melatonin 10 mg PO DAILY 07/23/24 [History] Nitroglycerin 0.4 mg Tablet [Nitrostat 0.4 MG Tablet] 0.4 mg SL Q5MIN PRN MR X 3 PRN 07/23/24 [History] Hx Tetanus, Diphtheria Vaccination/Date Given: Yes Hx Influenza Vaccination/Date Given: Yes Hx Pneumococcal Vaccination/Date Given: Yes Travel Risk - International Travel Have you traveled outside of the country in past 3 weeks: No - Emerging Infectious Disease Are you exhibiting symptoms associated with any current EIDs: No - Review of Systems Constitutional: No Symptoms, No Fever, No Chills Eyes: No Symptoms Ears, Nose, & Throat: No Symptoms Respiratory: No Symptoms, No Cough, No Dyspnea Cardiac: No Symptoms, No Chest Pain, No Edema, No Syncope Abdominal/Gastrointestinal: No Symptoms, No Abdominal Pain, No Nausea, No Vomiting, No Diarrhea Genitourinary Symptoms: No Symptoms, No Dysuria Musculoskeletal: No Symptoms, No Back Pain, No Neck Pain Skin: No Symptoms, No Rash Neurological: No Symptoms, No Dizziness, No Focal Weakness, No Sensory Changes Psychological: No Symptoms Endocrine: No Symptoms Hematologic/Lymphatic: No Symptoms Immunological/Allergic: No Symptoms All Other Systems: Reviewed and Negative - Past Medical History Pertinent Past Medical History: Yes Neurological History: Peripheral Neuropathy, TIA ENT History: Cataracts Cardiac History: Deep Vein Thrombosis, Hypertension Respiratory History: No Pertinent History Endocrine Medical History: Diabetes Type II Musculoskeletal History: Arthritis, Fractures, Osteoporosis GI Medical History: GERD, Gallbladder Disease, Hernia, Other History: Other Psycho-Social History: Anxiety, Depression Female Reproductive Disorders: Other Other Medical History: BECHETS, Anemia, Hx IVC filter for DVT, Pessiary, HX Kidney Stones, HX UTI, hx colon resection - Past Surgical History Past Surgical History: Yes Neuro Surgical History: No Pertinent History Cardiac: No Pertinent History Respiratory: No Pertinent History Gastrointestinal: Appendectomy, Cholecystectomy, Colon Resection, Hernia Repair Genitourinary: No Pertinent History Musculoskeletal: No Pertinent History Female Surgical History: Hysterectomy, Tubal Ligation Other Surgical History: GASTRIC BYPASS - Social History Smoking Status: Never smoker Exposure to second hand smoke: No Drug Use: none Patient Lives Alone: Yes - Social Determinants of Health Will the patient participate in the screening: Yes Do you worry about a steady place to live?: No Do you have any problems with any of the following?: No known problems In the past 12 months,have you had to go without utilities?: No Transportation Issues: No Has anyone in your support network made you feel unsafe?: No Have you or anyone in your house had to go without enough: No - Nursing Vital Signs Nursing Vital Signs: Initial Vital Signs Temperature 98.9 F 10/14/24 17:47 Pulse Rate 72 10/14/24 17:47 Blood Pressure 167/91 10/14/24 17:47 O2 Sat by Pulse Oximetry 96 10/14/24 17:47 Pain Scale Pain Intensity 0 - Physical Exam General Appearance: no apparent distress, alert Eye Exam: PERRL/EOMI, eyes nml inspection Ears, Nose, Throat Exam: normal ENT inspection, moist mucous membranes Neck Exam: normal inspection, full range of motion Respiratory Exam: normal breath sounds, lungs clear, No respiratory distress Cardiovascular Exam: regular rate/rhythm, normal heart sounds, normal peripheral pulses Gastrointestinal/Abdomen Exam: soft, normal bowel sounds, No tenderness, No mass Back Exam: normal inspection, normal range of motion, No CVA tenderness, No vertebral tenderness Extremity Exam: normal inspection, normal range of motion, pelvis stable Neurologic Exam: alert, oriented x 3, cooperative, normal mood/affect, sensation nml, No motor deficits Skin Exam: normal color, warm, dry, No rash Lymphatic Exam: No adenopathy SpO2 Interpretation: normal SpO2: 94 O2 Delivery: Room Air - Course Nursing assessment & vital signs reviewed: Yes Ordered Tests: Active Orders 24 hr Category Date Time Status VENOUS UNILAT/LIMITED EXTREMIT [US] Stat Exams 10/14/24 18:18 Taken CBC W DIFF Stat Lab 10/14/24 20:30 Completed CMP Stat Lab 10/14/24 20:30 Completed Medication Summary Discontinued Medications Generic Name Dose Route Start Last Admin Trade Name Freq PRN Reason Stop Dose Admin Apixaban 10 mg 10/14/24 21:08 Apixaban 2.5 Mg Tablet PO 10/14/24 21:09 ONCE STA Lab/Rad Data: Laboratory Result Diagrams 10/14/24 20:30 10/14/24 20:30 Laboratory Results 10/14/24 10/14/24 Range/Units 20:30 20:30 WBC 7.7 (3.98-10.04) x10^3/uL RBC 4.82 (3.93-5.22) x10^6/uL Hgb 14.5 (11.2-15.7) g/dL Hct 43.4 (34.1-44.9) % MCV 90.0 (79.4-94.8) fL MCH 30.1 (25.6-32.2) pg MCHC 33.4 (32.2-35.5) g/dL RDW 12.6 (11.7-14.4) % Plt Count 234 (182-369) x10^3/uL MPV 9.1 L (9.4-12.3) fL Gran % 44.6 (34.0-71.1) % Immature Gran % (Auto) 0.5 H (0.001-0.429) % Nucleat RBC Rel Count 0.0 (0.00-0.2) % Eos # (Auto) 0.50 H (0.04-0.36) x10^3/uL Immature Gran # (Auto) 0.04 H (0.001-0.031) x10^3u/L Absolute Lymphs (auto) 2.96 (1.18-3.74) x10^3/uL Absolute Monos (auto) 0.69 (0.24-0.86) x10^3/uL Absolute Nucleated RBC 0.00 (0.00-0.012) x10^3u/L Lymphocytes % 38.6 (19.3-51.7) % Monocytes % 9.0 (4.7-12.5) % Eosinophils % 6.5 H (0.7-5.8) % Basophils % 0.8 (0.1-1.2) % Absolute Granulocytes 3.42 (1.56-6.13) x10^3/uL Basophils # 0.06 (0.01-0.08) x10^3/uL Sodium 139 (135-145) mmol/L Potassium 4.3 (3.5-5.1) mmol/L Chloride 105 (98-107) mmol/L Carbon Dioxide 21 L (22-30) mmol/L Anion Gap 17.4 H (5-15) MEQ/L BUN 19 H (7-17) mg/dL Creatinine 0.74 (0.52-1.04) mg/dL Estimated GFR 82.3 ML/MIN Glucose 87 (74-106) mg/dL Calcium 9.8 (8.4-10.2) mg/dL Total Bilirubin 0.50 (0.2-1.3) mg/dL AST 29 (14-36) U/L ALT 24 (0-35) U/L Alkaline Phosphatase 74 (38-126) U/L Serum Total Protein 8.0 (6.3-8.2) g/dL Albumin 4.8 (3.5-5.0) g/dL - Progress Progress: improved Progress Note: Patient has a history of DVT. Her DVT was managed by her primary care doctor . We tried contacting however he is not available. I spoke to his covering partner and initiating Eliquis at 10 mg twice daily for 7 days followed by 5 mg twice daily Laboratory workup essentially nonremarkable. Kidney function is normal. We will initiate Eliquis as per his recommendation. Patient agrees to follow-up with her primary care doctor within 48 hours for reevaluation. She voices no other complaints or concerns at this time. Patient's involved left lower extremity is neurovascular tact distally compartments are soft cap refill less than 2 seconds. Portions of this note were created with voice recognition technology. There may be grammatical, spelling, punctuation or sound alike errors Complexity of problem addressed is moderate acute complicated. No critical care time. Complex of data reviewed and analyzed is moderate. Test ordered chest reviewed results analyzed and correlated clinically with history and physical exam. Risk of complication and or risk of morbidity/mortality of patient management is moderate. Patient received a dose of Eliquis in our ED. A prescription for the same forwarded to patient's pharmacy. Vital stable. Time spent to discharge patient is approximately 20 minutes. Plan of care established for shared decision making. No social determinants of health present to impede follow-up. Portions of this note were created with voice recognition technology. There may be grammatical, spelling, punctuation or sound alike errors 10/14/24 20:48 Counseled pt/family regarding: lab results, diagnosis, rad results - Departure Departure Disposition: Home Clinical Impression: DVT (deep venous thrombosis) Condition: Stable Critical Care Time: No Referrals: EMILIA JENKINS MD [Primary Care Provider] - Follow up/PCP as directed Additional Instructions: Discharge/Care Plan MIKYAO FREEDMAN was seen on 10/14/24 in the Emergency Room. The patient was counseled regarding Diagnosis,Lab results, Imaging studies, need for follow up and when to return to the Emergency Room. Prescriptions given: Discharge Note I have spoken with the patient and/or caregivers. I have explained the patient's condition, diagnosis and treatment plan based on the information available to me at this time. I have answered the patient's and/or caregiver's questions and addressed any concerns. The patient and/or caregivers have as good understanding of the patient's diagnosis, condition and treatment plan as can be expected at this point. The vital signs have been stable. The patient's condition is stable and appropriate for discharge from the emergency department. The patient will pursue further outpatient evaluation with the primary care physician or other designated or consulting physician as outlined in the [facility] instructions. The patient and/or caregivers are agreeable to this plan of care and follow-up instructions have been explained in detail. The patient and/or caregivers have received these instruction. The patient/and or caregivers are aware that any significant change in condition or worsening of symptoms should prompt an immediate return to this or the closest emergency department or call 911. Prescriptions: Apixaban [Eliquis 2.5 mg Tablet] 10 mg PO BID 7 Days #56 tablet
[2024-10-14 20:32] LABS: Absolute Neutrophil Ct (ANC) 3.42 x10^3/uL (1.56-6.13); BASOPHIL % 0.8 % (0.1-1.2); Basophil (Absolute #) 0.06 x10^3/uL (0.01-0.08); Eosinophil % 6.5 % (0.7-5.8); Hematocrit 43.4 % (34.1-44.9); Hemoglobin 14.5 g/dL (11.2-15.7); IMMATURE GRAN # 0.04 x10^3u/L (0.001-0.031); IMMATURE GRAN % 0.5 % (0.001-0.429); Lymphocyte (Absolute #) 2.96 x10^3/uL (1.18-3.74); Lymphocytes % 38.6 % (19.3-51.7); Mean Corpuscular Hemoglobin 30.1 pg (25.6-32.2); Mean Corpuscular Hgb Concent. 33.4 g/dL (32.2-35.5); Mean Platelet Volume 9.1 fL (9.4-12.3); Monocyte (Absolute #) 0.69 x10^3/uL (0.24-0.86); Neutrophil % 44.6 % (34.0-71.1); Platelet Count 234 x10^3/uL (182-369); Red Blood Count 4.82 x10^6/uL (3.93-5.22); Red Cell Distribution Width 12.6 % (11.7-14.4); White Blood Count 7.7 x10^3/uL (3.98-10.04)
[2024-10-14 20:51] VITALS: O2SAT 94
[2024-10-14 20:52] LABS: ALBUMIN 4.8 g/dL (3.5-5.0); ANION GAP 17.4 MEQ/L (5-15); BILIRUBIN,TOTAL 0.5 mg/dL (0.2-1.3); Calcium 9.8 mg/dL (8.4-10.2); Creatinine 1 0.74 mg/dL (0.52-1.04); EST GLOMERULAR FILTRATION RATE 82.3 ML/MIN; Potassium 4.3 mmol/L (3.5-5.1)
[2024-10-14 21:06] VITALS: BP 164/84; PULSE 67
[2024-10-14] MEDS: ELIQUIS 2.5 MG TABLET PO STA (21:48)
--- NOTE | 2024-10-15 08:38 | XRAY ---
Indication: Pain. Two-dimensional sonogram and color Doppler imaging measuring venous vessels left leg performed. Comparison: December 14, 2021 Nonoccluding thrombi seen in the common femoral, femoral, and popliteal veins. No thrombus in the remaining deep venous vessels left leg including greater saphenous vein. Patent veins demonstrate normal compressibility and normal venous waveforms. Impression: Again nonoccluding DVT in common femoral, femoral, and popliteal veins. Comment: Preliminary report was given.
== END 2024-10-14 22:21 | disposition home or self-care (01) ==
LOC: ED 17:21
DX: I82.402 Acute embolism and thrombosis of unspecified deep veins of left lower extremity (principal); M79.662 Pain in left lower leg; I10 Essential (primary) hypertension; E11.42 Type 2 diabetes mellitus with diabetic polyneuropathy; Z79.01 Long term (current) use of anticoagulants; Z79.84 Long term (current) use of oral hypoglycemic drugs; Z79.899 Other long term (current) drug therapy
CPT/HCPCS: 36415; 80053; 85025; 93971; 99284; A9270-GY

== ENCOUNTER 2025-06-20 11:07 | Emergency (ER) | payer MEDICARE, BC ==
[2025-06-20 11:21] VITALS: TEMP 97.8
--- NOTE | 2025-06-20 11:41 | ERPHSYRPT ---
- History of Present Illness Time Seen by Provider: 06/20/25 11:25 Source: patient Exam Limitations: no limitations Patient Subjective Stated Complaint: pt c/o of right sided knee pain that has a large lump to the medial side for the past couple of weeks and it was worse y esterday where she couldn't stand on it but she is able to put some weight on it today Triage Nursing Assessment: Pt brought to the ER by her son, hyeprtensive, rates pain as 9/10, pulses normal, skin n/w/d, hx of DVT's, hx of arthritis, no difficulty breathing, no chest pain, doesn't appear to be in any distress Physician History: This is a send 80-year-old white female patient arrives by private vehicle with a history of left lower extremity DVT and IVC filter placed in the distant past who presents to the emergency department with pain on the medial aspect of her right knee. She did not suffer any acute fall or injury. Approximately 10 years ago, when she was diagnosed with a DVT in the left lower extremity, the patient stated that this is was her presenting symptoms. That is, medial aspect pain of the knee. Patient has been on warfarin in the past as well as Eliquis. She has been taken off of both of those medications. Her current symptom complex began 2 weeks ago and worsened yesterday. She is able to ambulate but there is significant pain present. Patient has no history of gout. She does have a history of arthritis, osteoporosis, Bechet's disease, peripheral neuropathy, TIA, hyperlipidemia, diabetes, gastroesophageal reflux disease hypertension and chronic anemia. Method of Injury: unknown Occurred: other (No injury) Quality: aching Severity of Pain-Max: moderate Severity of Pain-Current: moderate Lower Extremities Pain: knee: right (Medial aspect) Modifying Factors: Improves With: movement Associated Symptoms: other (Can bear weight but hurts to do so) Allergies/Adverse Reactions: apremilast [From Otezla] Allergy (Verified 06/20/25 11:21) Penicillins Allergy (Verified 06/20/25 11:21) codeine Adverse Reaction (Verified 06/20/25 11:21) metoclopramide HCl [From Reglan] Adverse Reaction (Verified 06/20/25 11:21) morphine Adverse Reaction (Verified 06/20/25 11:21) SEDATED Sulfa (Sulfonamide Antibiotics) Adverse Reaction (Verified 06/20/25 11:21) Home Medications: Aspirin [Aspirin EC] 81 mg PO DAILY 08/18/16 [History] Atorvastatin Calcium 80 mg PO HS 08/18/16 [History] Metformin HCl 500 mg [Glucophage 500 MG] 1,000 mg PO BID 08/21/17 [History] Lisinopril 20 mg [Zestril 20 MG] 20 mg PO DAILY 07/26/21 [History] Trazodone HCl 50 mg [Desyrel 50 mg] 75 mg PO HS 07/26/21 [History] Brimonidine Tartrate [Alphagan P] 1 drop OP BID 01/17/23 [History] Latanoprost 1 drop OP HS 01/17/23 [History] Omeprazole 20 mg PO DAILY 01/17/23 [History] Adalimumab [Humira(Cf) Pen] 40 mg SQ UD 07/05/23 [History] Famotidine 20 mg [Pepcid 20 MG] 20 mg PO BID 07/05/23 [History] atenoloL [Atenolol] 25 mg PO DAILY 07/05/23 [History] Ca/D3/Mag Ox/Zinc/Shearer Operator/Greg/Bor [Calcium 600+D3 Plus Caplet] 1 each PO BID 07/23/24 [History] Cholecalciferol (Vitamin D3) [Vitamin D3] 25 mcg PO DAILY 07/23/24 [History] Cyanocobalamin 500 Mcg [Vitamin B-12 500 MCG] 1,000 mcg PO DAILY 07/23/24 [History] Empagliflozin [Jardiance] 10 mg PO DAILY 07/23/24 [History] Magnesium Oxide 400 mg [Mag-Ox 400] 400 mg PO DAILY 07/23/24 [History] Melatonin 10 mg PO DAILY 07/23/24 [History] Nitroglycerin 0.4 mg Tablet [Nitrostat 0.4 MG Tablet] 0.4 mg SL Q5MIN PRN MR X 3 PRN 07/23/24 [History] Hx Tetanus, Diphtheria Vaccination/Date Given: Yes Hx Influenza Vaccination/Date Given: Yes Hx Pneumococcal Vaccination/Date Given: Yes Travel Risk - International Travel Have you traveled outside of the country in past 3 weeks: No - Emerging Infectious Disease Are you exhibiting symptoms associated with any current EIDs: No - Review of Systems Constitutional: No Symptoms Eyes: No Symptoms Ears, Nose, & Throat: No Symptoms Respiratory: No Symptoms Cardiac: No Symptoms Abdominal/Gastrointestinal: No Symptoms Genitourinary Symptoms: No Symptoms Musculoskeletal: Joint Pain (Right knee pain, medial aspect) Skin: No Symptoms Neurological: No Symptoms Psychological: No Symptoms Endocrine: No Symptoms Hematologic/Lymphatic: No Symptoms Immunological/Allergic: No Symptoms All Other Systems: Reviewed and Negative - Past Medical History Pertinent Past Medical History: Yes Neurological History: Peripheral Neuropathy, TIA ENT History: Cataracts Cardiac History: Deep Vein Thrombosis, Hypertension Respiratory History: No Pertinent History Endocrine Medical History: Diabetes Type II Musculoskeletal History: Arthritis, Fractures, Osteoporosis GI Medical History: GERD, Gallbladder Disease, Hernia, Other History: Other Psycho-Social History: Anxiety, Depression Female Reproductive Disorders: Other Other Medical History: BECHETS, Anemia, Hx IVC filter for DVT, Pessiary, HX Kidney Stones, HX UTI, hx colon resection - Past Surgical History Past Surgical History: Yes Neuro Surgical History: No Pertinent History Cardiac: No Pertinent History Respiratory: No Pertinent History Gastrointestinal: Appendectomy, Cholecystectomy, Colon Resection, Hernia Repair Genitourinary: No Pertinent History Musculoskeletal: No Pertinent History Female Surgical History: Hysterectomy, Tubal Ligation Other Surgical History: GASTRIC BYPASS - Social History Smoking Status: Never smoker Exposure to second hand smoke: No Drug Use: none - Social Determinants of Health Will the patient participate in the screening: Yes Do you worry about a steady place to live?: No Do you have any problems with any of the following?: No known problems In the past 12 months,have you had to go without utilities?: No Transportation Issues: No Has anyone in your support network made you feel unsafe?: No Have you or anyone in your house had to go w/o enough food: No - Nursing Vital Signs Nursing Vital Signs: Initial Vital Signs Temperature 97.8 F 06/20/25 11:15 Pulse Rate 77 06/20/25 11:15 Blood Pressure 157/81 06/20/25 11:15 O2 Sat by Pulse Oximetry 95 06/20/25 11:15 Pain Scale Pain Intensity 9 - Physical Exam General Appearance: no apparent distress, alert, anxiety, thin Eyes, Ears, Nose, Throat Exam: normal ENT inspection, moist mucous membranes Neck Exam: normal inspection, non-tender, supple, full range of motion Cardiovascular/Respiratory Exam: chest non-tender, no respiratory distress Gastrointestinal/Abdominal Exam: non-tender Back Exam: normal inspection, normal range of motion, No CVA tenderness, No vertebral tenderness Hips Exam: bilateral: non-tender, normal inspection, normal range of motion, no evidence of injury Legs Exam: bilateral leg: non-tender, normal inspection, normal range of motion, no evidence of injury Knees Exam: right knee: bone tenderness (Medial aspect), pain (Medial aspect), soft tissue tenderness (Medial aspect), left knee: non-tender, bilateral knee: normal inspection, normal range of motion, no evidence of injury Ankle Exam: bilateral ankle: non-tender, normal inspection, normal range of motion, no evidence of injury Foot Exam: bilateral foot: non-tender, normal inspection, normal range of motion, no evidence of injury Neuro/Tendon Exam: normal sensation, normal motor functions, normal tendon functions, no evidence tendon injury Mental Status Exam: alert, oriented x 3, cooperative Skin Exam: normal color, warm, dry SpO2 Interpretation: normal SpO2: 95 O2 Delivery: Room Air - Course Nursing assessment & vital signs reviewed: Yes Ordered Tests: Active Orders 24 hr Category Date Time Status LOWER EXTREMITY WO CONTRAST [CT] Stat Exams 06/20/25 11:33 Completed D-DIMER QUANTITATIVE Stat Lab 06/20/25 11:40 Completed Uric Acid Stat Lab 06/20/25 11:40 Completed Lab/Rad Data: Laboratory Results 06/20/25 06/20/25 Range/Units 11:40 11:40 D-Dimer 0.22 (0.0-0.50) mg/L Uric Acid 4.0 (2.6-6.0) mg/dL - Progress Progress: unchanged, pain not gone completely, re-examined Progress Note: 06/20/25 11:41 My medical decision making and the assignment of low to moderate complexity of this patient's medical issue today is based on review of the patient's past medical history, review the patient's medication list, reviewed patient drug all ergy list, history of present illness and physical findings on examination. The workup in this patient includes uric acid level, D-dimer level, CT scan of the patient's right knee. Differential diagnosis includes but is not limited to fracture/dislocation right knee, arthritic flareup, gout arthritis, DVT 06/20/25 13:12 I interpreted the patient's laboratory data results. Based on laboratory data results there are no acute, emergent medical issues. The CT scan of the right knee was interpreted by the radiologist and I reviewed the impression. The impression states diffuse, osteopenic texture of the examined bones. There is advanced osteoarthritic knee changes with suprapatellar loose bodies. There is a cortical irregularity of the lateral femoral condyle which could represent osteochondral injury. There is mild joint effusion distending the suprapatellar recess. 06/20/25 13:24 Patient states that she has taken hydrocodone before without any adverse effects. Counseled pt/family regarding: lab results, diagnosis, need for follow-up, rad results Medical Desision Making - Diagnostic Testing Diagnostic test were ordered, analyzed, and reviewed by me: Yes Radiological Interpretation: Reviewed by me, Teleradiologist Report - Risk of complications Low Risk: Low risk of morbidity from additional dx testing or treatment The pt has a mod risk of morbidity or mortality based on: Need for prescription drug management - Departure Departure Disposition: Home Clinical Impression: Effusion, right knee, Osteoarthritis of knee Condition: Stable Critical Care Time: No Referrals: EMILIA JENKINS MD [Primary Care Provider, UNKNOWN] - Follow up/PCP as directed Additional Instructions: Take all your medications as prescribed. Monitor your blood sugar closely while taking the steroids. Call your prescribing provider on 06/22/2025, to make arrangements for follow-up appointment to be seen in the next 3 to 5 days. Alternate ice and heat to the tender right knee every 8 hours for the next 48 hours. Prescriptions: Hydrocodone/APAP 5/325 [Gerton 5/325 mg] 1 each PO Q8H PRN PRN #6 tablet MDD 3 PRN Reason: Pain Oxycodone HCl/Acetaminophen [Percocet 5-325 mg Tablet] 1 each PO Q8H PRN PRN #6 tablet MDD 3 PRN Reason: Moderate To Severe Pain
[2025-06-20 13:08] VITALS: BP 133/96; PULSE 82; RESP 16
--- NOTE | 2025-06-20 13:08 | XRAY ---
CLINICAL HISTORY: Right knee pain COMPARISON: None. TECHNIQUE: Thin axial non-contrast images of the right knee joint were obtained, along with coronal and sagittal reconstructions. One of the following dose reduction techniques was utilized for this exam: automated exposure control, adjustment of the mA and/or kV according to patient size, and use of iterative reconstruction. FINDINGS: No fracture or dislocation is seen. Diffuse osteopenic texture of the examined bones is present. There are advanced osteoarthritic changes of the femorotibial and patellofemoral articulations, manifested by marginal osteophytic lipping of the opposing articular surfaces, narrowed medial femorotibial joint space, and spurring of the patellar poles. Cortical irregularity and deviation of the lateral femoral condyle possibly represent an osteochondral injury. Multiple suprapatellar calcified loose bodies are noted. There is no evidence of a lytic or sclerotic bone lesion. Mild knee joint effusion is present, distending the suprapatellar recess with mild synovial thickening. Diffuse atherosclerotic changes of the examined popliteal vessels are seen. IMPRESSION: 1. Diffuse osteopenic texture of the examined bones. 2. Advanced osteoarthritic knee changes with suprapatellar loose bodies. 3. Cortical irregularity and deviation of the lateral femoral condyle possibly represent an osteochondral injury. 4. Mild knee joint effusion distending the suprapatellar recess. 5. MRI is recommended to rule out internal derangement. Electronically Signed by: Cheng Larson MD. (06/20/2025 13:07:51 EDT)
[2025-06-20 13:14] VITALS: O2SAT 95
[2025-06-20] MEDS ORDERED: NORCO 5/325 MG ONE (13:22)
[2025-06-20] MEDS: DELTASONE 20 MG PO ONE (13:22)
[2025-06-20] MEDS ORDERED: DELTASONE 20 MG ONE (13:22)
[2025-06-20] MEDS: NORCO 5/325 MG PO ONE (13:23)
== END 2025-06-20 13:37 | disposition home or self-care (01) ==
LOC: ED 11:07
DX: M17.11 Unilateral primary osteoarthritis, right knee (principal); M25.461 Effusion, right knee; E11.42 Type 2 diabetes mellitus with diabetic polyneuropathy; I10 Essential (primary) hypertension; Z79.84 Long term (current) use of oral hypoglycemic drugs; Z79.899 Other long term (current) drug therapy; Z86.718 Personal history of other venous thrombosis and embolism